=== PATIENT | male | born 1955 | race American Indian/Alaskan Native ===

== ENCOUNTER 2017-05-11 13:07 | Inpatient (IN) | payer MEDICARE ==
[2017-05-11 13:41] LABS: Basophils # (Auto) 0.1 K/mm3 (0.0-0.1); Basophils % (Auto) 0.6 % (0.0-1.8); Eosinophils % (Auto) 0.3 % (0.0-4.3); Hematocrit 33.3 % (35.5-45.6); Hemoglobin 10.7 gm/dl (11.8-15.2); Lymphocytes # (Auto) 0.9 K/mm3 (1.2-5.4); Lymphocytes % (Auto) 10.3 % (13.4-35.0); Mean Corpuscular HGB Conc 32 % (32-34); Mean Corpuscular Hemoglobin 36 pg (28-32); Mean Corpuscular Volume 112 fl (84-94); Monocytes # (Auto) 0.8 K/mm3 (0.0-0.8); Monocytes % (Auto) 8.8 % (0.0-7.3); Platelet Count 238 K/mm3 (140-440); Red Blood Count 2.98 M/mm3 (3.65-5.03); Red Cell Distribution Width 17.3 % (13.2-15.2)
[2017-05-11 14:07] LABS: Albumin 3.1 g/dL (3.9-5); Calcium 8.5 mg/dL (8.4-10.2)
--- NOTE | 2017-05-11 17:10 | Emergency Department Report ---
HPI - General Chief Complaint: Medical Clearance Time Seen by Provider: 05/11/17 16:40 - HPI HPI: 62-year-old -[place] male presents to ED with shortness of breath, leg swelling, weakness. He has a history of end-stage renal disease on dialysis and has missed dialysis last 3 series. No fever, no chest pain, no chills, no nausea or vomiting. Patient lives at home is accompanied by family members in the room. ED Past Medical Hx - Past Medical History Hx Hypertension: Yes Hx Congestive Heart Failure: No Hx Diabetes: Yes Hx Renal Disease: Yes Hx Arthritis: Yes Hx Asthma: No Hx COPD: Yes Additional medical history: gout - Surgical History Hx Appendectomy: Yes Additional Surgical History: fistula left forearm - Social History Smoking Status: Heavy Tobacco Smoker Substance Use Type: None - Medications Home Medications: Home Medications Medication Instructions Recorded Confirmed Last Taken Type ALBUTEROL Inhaler [ProAir HFA 1 puff IH QID PRN #1 inha 12/18/13 04/03/17 Unknown Rx Inhaler] Sucroferric Oxyhydroxide [Velphoro] 500 mg PO TID 04/03/17 04/03/17 Unknown History Vit B Comp No.3/Folic/C/Biotin 1 each PO DAILY 04/03/17 04/03/17 Unknown History [Nephro-[place] Rx Tablet] Budesoni/Formotero 160-4.5(Nf) 1 puff IH BID 30 Days inha 04/10/17 Unknown Rx [Symbicort 160-4.5 (Nf)] Metoprolol [Lopressor TAB] 25 mg PO BID #60 tablet 04/10/17 Unknown Rx ED Review of Systems ROS: Stated complaint: SOB Other details as noted in HPI Constitutional: no symptoms reported Respiratory: cough, orthopnea, shortness of breath, SOB at rest Gastrointestinal: as per HPI Genitourinary: as per HPI Musculoskeletal: arthralgia Physical Exam - Physical Exam Vital Signs: Vital Signs 05/11/17 05/11/17 13:23 14:39 Temperature 97.6 F Pulse Rate 75 76 Respiratory 20 18 Rate Blood Pressure 132/88 Blood Pressure 116/78 [Right] O2 Sat by Pulse 95 95 Oximetry Physical Exam: - Physical Exam Physical Exam: - General Limitations: No Limitations General appearance: alert, in no apparent distress, obese - Head Head exam: Present: atraumatic, normocephalic - Eye Eye exam: Present: normal appearance - ENT ENT exam: Present: mucous membranes moist - Neck Neck exam: Present: normal inspection - Respiratory Respiratory exam: Present: Decreased breath sound bilaterally - Cardiovascular Cardiovascular Exam: Present: normal rhythm, tachycardia. Absent: systolic murmur, diastolic murmur, rubs, gallop - GI/Abdominal GI/Abdominal exam: Present: soft, normal bowel sounds - Extremities Exam Extremities exam: Present: 2+ edema bilaterally - Back Exam Back exam: Present: normal inspection - Neurological Exam Neurological exam: Present: alert, oriented X3 - Psychiatric Psychiatric exam: normal affect and mood - Skin Skin exam: Present: warm, dry, intact, normal color. Absent: rash ED Course Vital Signs 05/11/17 05/11/17 13:23 14:39 Temperature 97.6 F Pulse Rate 75 76 Respiratory 20 18 Rate Blood Pressure 132/88 Blood Pressure 116/78 [Right] O2 Sat by Pulse 95 95 Oximetry ED Medical Decision Making - Lab Data Result diagrams: 05/11/17 13:32 05/11/17 13:32 Critical care attestation.: If time is entered above; I have spent that time in minutes in the direct care of this critically ill patient, excluding procedure time. ED Disposition Clinical Impression: Other fluid overload Disposition: - OP ADMIT IP TO THIS HOSP Is pt being admited?: Yes Does the pt Need Aspirin: No Condition: Stable Referrals: PRIMARY CARE, [Primary Care Provider] - 3-5 Days
[2017-05-11] MEDS ORDERED: NACL 0.9% 100 ML IV PRN (17:17)
[2017-05-11 17:30] LABS: INR 1.21 (0.87-1.13); Partial Thromboplastin Time 27.8 Sec. (24.2-36.6)
--- NOTE | 2017-05-11 17:41 | Consultation ---
History of Present Illness - Reason for Consult Consult date: 05/11/17 end stage renal disease, hyperkalemia Requesting physician: GUERRERO FERNANDEZ - History of Present Illness This is a 61 yo AAM with past medical history of COPD, hypertension, ESRD on HD on MWF, who presents to the ER with complaints of shortness of breath, leg swelling and generalized weakness. pt states that he missed his HD on Sunday due to his son's illness and on Sunday because he felt sick himself. pt denies fever, chills, nausea, vomiting, chest pain, abd pain, diarrhea, dysuria , dizziness, blurry visions. Patient has a left AVF with button hole. CXR showed evidence of interstitial infiltrates and labs showed elevated BUN/Cr at 164/16.8mg/dl with elevated K at 6.3. Renal consult requested for management of ESRD/HD. Past History Past Medical History: anemia, arthritis, COPD, diabetes, dialysis, hypertension Past Surgical History: appendectomy, Other (LUE AVF ) Social history: , lives with family Family history: diabetes, hypertension Medications and Allergies Allergies Allergy/AdvReac Type Severity Reaction Status Date / Time No Known Allergies Allergy Verified 12/18/13 07:27 Home Medications Medication Instructions Recorded Confirmed Last Taken Type ALBUTEROL Inhaler [ProAir HFA 1 puff IH QID PRN #1 inha 12/18/13 04/03/17 Unknown Rx Inhaler] Sucroferric Oxyhydroxide [Velphoro] 500 mg PO TID 04/03/17 04/03/17 Unknown History Vit B Comp No.3/Folic/C/Biotin 1 each PO DAILY 04/03/17 04/03/17 Unknown History [Nephro-[place] Rx Tablet] Budesoni/Formotero 160-4.5(Nf) 1 puff IH BID 30 Days inha 04/10/17 Unknown Rx [Symbicort 160-4.5 (Nf)] Metoprolol [Lopressor TAB] 25 mg PO BID #60 tablet 04/10/17 Unknown Rx Active Meds: Active Medications Sodium Chloride (Nacl 0.9%) 100 mls @ 999 mls/hr IV FRANSISCO PRN PRN Reason: Hypotension Review of Systems All systems: negative Constitutional: weakness, malaise Cardiovascular: edema, shortness of breath, dyspnea on exertion, paroxysmal nocturnal dyspnea Exam - Vital Signs Vital signs: Vital Signs Temp Pulse Resp BP Pulse Ox 97.6 F 75 20 132/88 95 05/11/17 13:23 05/11/17 13:23 05/11/17 13:23 05/11/17 13:23 05/11/17 13:23 - General Appearance General appearance: well-developed, well-nourished, appears stated age EENT: ATNC, PERRL, mucous membranes moist Respiratory: Rales, Decreased Breath Sounds Heart: regular, S1S2 Gastrointestinal: Present: normoactive bowel sounds, obese Integumentary: no rash, other (2+ edema b/l LE ) Neurologic: no focal deficit, alert and oriented x3, strength 5/5, CN 3-12 intact Psychiatric: mood/affect appropriate, cooperative Results - Lab Results 05/11/17 13:32 05/11/17 13:32 Most recent lab results Calcium 8.5 mg/dL (8.4-10.2) 05/11/17 13:32 Assessment and Plan - Patient Problems (1) Pulmonary edema Current Visit: Yes Status: Acute Plan to address problem: will challenge UF 3L as tolerated with HD. another HD tomorrow for both fluid removal and solute clearance (2) Hyperkalemia Current Visit: Yes Status: Acute Plan to address problem: HD today using 2 k bath, cont 2g K renal diet (3) ESRD (end stage renal disease) on dialysis Current Visit: No Status: Chronic Plan to address problem: HD today and tomorrow for both fluid removal and solute clearance. D/w Dr Fernandez (4) Diabetes mellitus type 2, insulin dependent Current Visit: No Status: Chronic Plan to address problem: glucose control as per primary attending (5) HTN (hypertension) Current Visit: No Status: Chronic Plan to address problem: Bp controlled currently. cont current meds
[2017-05-11 18:58] LABS: Chol/HDL Ratio 4.48 %
--- NOTE | 2017-05-11 19:38 | XRay Report ---
FINAL REPORT EXAM: XR CHEST 1V AP HISTORY: sob TECHNIQUE: AP chest portable PRIORS: No prior studies available for comparison FINDINGS: There is mild cardiac enlargement. No focal pulmonary infiltrate identified. No pleural fluid collection seen. There is mild pulmonary vascular congestion. IMPRESSION: Cardiomegaly Mild pulmonary vascular congestion may reflect CHF
[2017-05-11] MEDS ORDERED: NACL 0.9 (PRIMING MACHINE ONLY DIALYSIS) MC ONE (19:53)
--- NOTE | 2017-05-11 20:50 | History and Physical Report ---
History of Present Illness Date of examination: 05/11/17 Date of admission: 05/11/17 17:06 Chief complaint: CC Sob for 2 days History of present illness: History of Present Illness 61 yo AAM with past medical history of COPD, hypertension, ESRD on HD on MWF, very non compliant presents to the ER with complaints of shortness of breath, leg swelling and generalized weakness. pt states that he missed his HD on Sunday due to his son's illness and on Sunday because he felt sick himself. pt denies fever, chills, nausea, vomiting, chest pain, abd pain, diarrhea, dysuria, dizziness, blurry visions. Patient has a left AVF with button hole. CXR showed evidence of interstitial infiltrates and labs showed elevated BUN/Cr at 164/16.8mg/dl with elevated K at 6.3.Orthopnea present. Past History Past Medical History: anemia, arthritis, COPD, diabetes, dialysis, hypertension Past Surgical History: appendectomy, Other (LUE AVF ) Social history: , lives with family Family history: diabetes, hypertension Medications and Allergies Allergies Allergy/AdvReac Type Severity Reaction Status Date / Time No Known Allergies Allergy Verified 12/18/13 07:27 Home Medications Medication Instructions Recorded Confirmed Last Taken Type ALBUTEROL Inhaler [ProAir HFA 1 puff IH QID PRN #1 inha 12/18/13 04/03/17 Unknown Rx Inhaler] Sucroferric Oxyhydroxide [Velphoro] 500 mg PO TID 04/03/17 04/03/17 Unknown History Vit B Comp No.3/Folic/C/Biotin 1 each PO DAILY 04/03/17 04/03/17 Unknown History [Nephro-[place] Rx Tablet] Budesoni/Formotero 160-4.5(Nf) 1 puff IH BID 30 Days inha 04/10/17 Unknown Rx [Symbicort 160-4.5 (Nf)] Metoprolol [Lopressor TAB] 25 mg PO BID #60 tablet 04/10/17 Unknown Rx Past History Past Medical History: anemia, arthritis, COPD, diabetes, dialysis, hypertension Past Surgical History: appendectomy, Other (LUE AVF ) Social history: , lives with family Family history: diabetes, hypertension Medications and Allergies Allergies Allergy/AdvReac Type Severity Reaction Status Date / Time No Known Allergies Allergy Verified 12/18/13 07:27 Home Medications Medication Instructions Recorded Confirmed Last Taken Type Budesoni/Formotero 160-4.5(Nf) 1 puff IH BID 30 Days inha 04/10/17 05/11/17 Unknown Rx [Symbicort 160-4.5 (Nf)] Metoprolol [Lopressor TAB] 25 mg PO BID #60 tablet 04/10/17 05/11/17 Unknown Rx ALBUTEROL Inhaler [ProAir HFA 1 puff IH TID PRN 05/11/17 05/11/17 Unknown History Inhaler] Torsemide [Demadex] 80 mg PO DAILY 05/11/17 05/11/17 Unknown History Active Meds: Active Medications Sodium Chloride (Nacl 0.9%) 100 mls @ 999 mls/hr IV FRANSISCO PRN PRN Reason: Hypotension Review of Systems All systems: negative Constitutional: weight gain Ears, nose, mouth and throat: no sore throat, no swelling in mouth Cardiovascular: orthopnea, shortness of breath, dyspnea on exertion, no chest pain Respiratory: shortness of breath, dyspnea on exertion, no cough, no cough with sputum, no excessive sputum, no hemoptysis Gastrointestinal: nausea, no abdominal pain, no diarrhea, no constipation Genitourinary Male: no dysuria, no hematuria, no flank pain, no discharge Rectal: no pain Musculoskeletal: no neck stiffness, no neck pain, no shooting arm pain, no arm numbness/tingling Integumentary: no rash, no pruritis, no redness, no sores Neurological: no seizures, no syncope Psychiatric: no anxiety, no change in sleep habits Endocrine: no cold intolerance, no heat intolerance, no polyphagia, no excessive thirst Hematologic/Lymphatic: no easy bruising, no easy bleeding Allergic/Immunologic: no urticaria, no allergic rhinitis, no wheezing Exam - Constitutional Vitals: Temp Pulse Resp BP Pulse Ox 97.6 F 78 12 138/89 93 05/11/17 13:23 05/11/17 19:00 05/11/17 19:00 05/11/17 19:00 05/11/17 18:45 General appearance: Present: no acute distress, mild distress, well-nourished - EENT Eyes: Present: PERRL ENT: hearing intact, clear oral mucosa - Neck Neck: Present: supple, normal ROM - Respiratory Respiratory effort: normal Respiratory: bilateral: CTA - Cardiovascular Heart rate: 80 Rhythm: regular Heart Sounds: Present: S1 & S2. Absent: rub, click - Extremities Extremities: no ischemia, pulses intact, pulses symmetrical, No edema Peripheral Pulses: within normal limits - Abdominal General gastrointestinal: Present: soft, non-tender, non-distended, normal bowel sounds Male genitourinary: Present: normal - Rectal Rectal Exam: deferred - Integumentary Integumentary: Present: clear, warm, dry - Musculoskeletal Musculoskeletal: gait normal, strength equal bilaterally - Psychiatric Psychiatric: appropriate mood/affect, intact judgment & insight - Neurologic Neurologic: CNII-XII intact, moves all extremities - Allied Health Allied health notes reviewed: nursing, case management Results - Labs CBC & Chem 7: 05/11/17 13:32 05/11/17 13:32 Labs: Laboratory Last Values WBC 9.1 K/mm3 (4.5-11.0) 05/11/17 13:32 RBC 2.98 M/mm3 (3.65-5.03) L 05/11/17 13:32 Hgb 10.7 gm/dl (11.8-15.2) L 05/11/17 13:32 Hct 33.3 % (35.5-45.6) L 05/11/17 13:32 MCV 112 fl (84-94) H 05/11/17 13:32 MCH 36 pg (28-32) H 05/11/17 13:32 MCHC 32 % (32-34) 05/11/17 13:32 RDW 17.3 % (13.2-15.2) H 05/11/17 13:32 Plt Count 238 K/mm3 (140-440) 05/11/17 13:32 Lymph % (Auto) 10.3 % (13.4-35.0) L 05/11/17 13:32 Major % (Auto) 8.8 % (0.0-7.3) H 05/11/17 13:32 Eos % (Auto) 0.3 % (0.0-4.3) 05/11/17 13:32 Baso % (Auto) 0.6 % (0.0-1.8) 05/11/17 13:32 Lymph # 0.9 K/mm3 (1.2-5.4) L 05/11/17 13:32 Major # 0.8 K/mm3 (0.0-0.8) 05/11/17 13:32 Eos # 0.0 K/mm3 (0.0-0.4) 05/11/17 13:32 Baso # 0.1 K/mm3 (0.0-0.1) 05/11/17 13:32 Seg Neutrophils % 80.0 % (40.0-70.0) H 05/11/17 13:32 Seg Neutrophils # 7.3 K/mm3 (1.8-7.7) 05/11/17 13:32 PT 16.0 Sec. (12.2-14.9) H 05/11/17 16:54 INR 1.21 (0.87-1.13) H 05/11/17 16:54 APTT 27.8 Sec. (24.2-36.6) 05/11/17 16:54 Sodium 141 mmol/L (137-145) 05/11/17 13:32 Potassium 6.3 mmol/L (3.6-5.0) H* 05/11/17 13:32 Chloride 99.7 mmol/L (98-107) 05/11/17 13:32 Carbon Dioxide 17 mmol/L (22-30) L 05/11/17 13:32 Anion Gap 31 mmol/L 05/11/17 13:32 BUN 164 mg/dL (9-20) H 05/11/17 13:32 Creatinine 16.8 mg/dL (0.8-1.5) H 05/11/17 13:32 Estimated GFR 4 ml/min 05/11/17 13:32 BUN/Creatinine Ratio 10 % 05/11/17 13:32 Glucose 103 mg/dL (75-100) H 05/11/17 13:32 Calcium 8.5 mg/dL (8.4-10.2) 05/11/17 13:32 Total Bilirubin 0.50 mg/dL (0.1-1.2) 05/11/17 13:32 AST 47 units/L (5-40) H 05/11/17 13:32 ALT 142 units/L (7-56) H 05/11/17 13:32 Alkaline Phosphatase 167 units/L (35-129) H 05/11/17 13:32 Troponin T 0.130 ng/mL (0.00-0.029) H* 05/11/17 16:54 NT-Pro-B Natriuret Pep > 69926 pg/mL (0-900) H 05/11/17 16:54 Total Protein 5.8 g/dL (6.3-8.2) L 05/11/17 13:32 Albumin 3.1 g/dL (3.9-5) L 05/11/17 13:32 Albumin/Globulin Ratio 1.1 % 05/11/17 13:32 Triglycerides 92 mg/dL (2-149) 05/11/17 16:54 Cholesterol 112 mg/dL (50-199) 05/11/17 16:54 LDL Cholesterol Direct 63 mg/dL (50-130) 05/11/17 16:54 HDL Cholesterol 25 mg/dL (40-59) L 05/11/17 16:54 Cholesterol/HDL Ratio 4.48 % 05/11/17 16:54 Short CBC 05/11/17 Range/Units 13:32 WBC 9.1 (4.5-11.0) K/mm3 Hgb 10.7 L (11.8-15.2) gm/dl Hct 33.3 L (35.5-45.6) % Plt Count 238 (140-440) K/mm3 BMP 05/11/17 13:32 Sodium 141 Potassium 6.3 H* Chloride 99.7 Carbon Dioxide 17 L BUN 164 H Creatinine 16.8 H Glucose 103 H Calcium 8.5 Cardiac Enzymes 05/11/17 Range/Units 16:54 Troponin T 0.130 H* (0.00-0.029) ng/mL Liver Function 05/11/17 Range/Units 13:32 Total Bilirubin 0.50 (0.1-1.2) mg/dL AST 47 H (5-40) units/L ALT 142 H (7-56) units/L Alkaline Phosphatase 167 H (35-129) units/L Albumin 3.1 L (3.9-5) g/dL Assessment and Plan Advance Directives: Yes (Full code) VTE prophylaxis?: Chemical Plan of care discussed with patient/family: Yes - Patient Problems (1) Pulmonary edema Current Visit: Yes Status: Acute Qualifiers: Chronicity: acute Qualified Code(s): J81.0 - Acute pulmonary edema Plan to address problem: Sec to Missed HD Emergent HD ordered by Dr Hnacock for ultrafiltration (2) Hyperkalemia Current Visit: Yes Status: Acute Plan to address problem: On Torsemide Calcium gluconate IV Emergent HD Recheck K level (3) Fluid overload Current Visit: No Status: Chronic Plan to address problem: Sec to missed HD. (4) ESRD (end stage renal disease) on dialysis Current Visit: No Status: Chronic Plan to address problem: Cont HD .Counselled about noncompliance (5) HTN (hypertension) Current Visit: No Status: Chronic Qualifiers: Hypertension type: essential hypertension Qualified Code(s): I10 - Essential (primary) hypertension Plan to address problem: Cont antihypertensives (6) COPD (chronic obstructive pulmonary disease) Current Visit: Yes Status: Chronic Qualifiers: COPD type: unspecified COPD Qualified Code(s): J44.9 - Chronic obstructive pulmonary disease, unspecified Plan to address problem: Cont Bronchodilators (7) DVT prophylaxis Current Visit: No Status: Acute Plan to address problem: On Heparin
[2017-05-11] MEDS ORDERED: PROAIR IH PRN (20:51)
[2017-05-11] MEDS ORDERED: SODIUM CHLORIDE FLUSH SYRINGE 10 ML IV PRN (20:54)
[2017-05-11] MEDS ORDERED: AMBIEN PO PRN (20:54)
[2017-05-11] MEDS ORDERED: ZOFRAN IV PRN (20:54)
[2017-05-11] MEDS ORDERED: MORPHINE IV PRN (20:54)
[2017-05-11] MEDS ORDERED: TYLENOL PO PRN (20:54)
[2017-05-11] MEDS ORDERED: TORSEMIDE PO SCH (21:00)
[2017-05-11] MEDS ORDERED: PROVENTIL IH PRN (21:07)
[2017-05-11] MEDS ORDERED: NON-FORMULARY (Budesoni/Formotero 160-4.5(Nf) 1 PUFF) IH SCH (22:00)
[2017-05-12] MEDS: LOPRESSOR PO SCH ×3 (00:29→22:28)
[2017-05-12] MEDS: SODIUM CHLORIDE FLUSH SYRINGE 10 ML IV SCH ×2 (00:30→22:28)
[2017-05-12] MEDS ORDERED: CALCIUM GLUCONATE 2,000 MG in NACL 0.9% 100 ML IV ONE (06:11)
[2017-05-12 06:36] LABS: Basophils % (Auto) 0.3 % (0.0-1.8); Eosinophils % (Auto) 0.5 % (0.0-4.3); Hematocrit 28.3 % (35.5-45.6); Hemoglobin 9.6 gm/dl (11.8-15.2); Lymphocytes % (Auto) 11.8 % (13.4-35.0); Mean Corpuscular HGB Conc 34 % (32-34); Mean Corpuscular Hemoglobin 37 pg (28-32); Mean Corpuscular Volume 108 fl (84-94); Monocytes # (Auto) 0.8 K/mm3 (0.0-0.8); Platelet Count 187 K/mm3 (140-440); Red Blood Count 2.62 M/mm3 (3.65-5.03); Red Cell Distribution Width 16.9 % (13.2-15.2)
[2017-05-12 06:51] LABS: Albumin 2.9 g/dL (3.9-5); Calcium 8.2 mg/dL (8.4-10.2)
[2017-05-12] MEDS: BROVANA NEBU IH SCH ×2 (07:31→20:49)
[2017-05-12] MEDS: PULMICORT IH SCH ×2 (07:31→20:49)
[2017-05-12] MEDS: HEPARIN SUB-Q SCH ×2 (09:31→22:27)
[2017-05-12] MEDS ORDERED: DEMADEX PO SCH ×2 (10:00)
--- NOTE | 2017-05-12 10:06 | Progress Note ---
Assessment and Plan - Patient Problems (1) Hypertensive chronic kidney disease with stage 5 chronic kidney disease or end stage renal disease Current Visit: Yes Status: Acute Plan to address problem: Follow blood pressure following fluid removal on dialysis (2) Hyperkalemia Current Visit: Yes Status: Acute Plan to address problem: Potassium improved postdialysis. (3) Other fluid overload Current Visit: Yes Status: Acute Plan to address problem: Hemodialysis again today. Attempt 3-4 L fluid removal. (4) Diabetes mellitus type 2, insulin dependent Current Visit: No Status: Chronic Plan to address problem: Blood sugar management by primary attending (5) ESRD (end stage renal disease) on dialysis Current Visit: No Status: Chronic Plan to address problem: Hemodialysis again today. Reinforce importance of adherence to dialysis treatment regimen Subjective Date of service: 05/12/17 Principal diagnosis: end-stage renal disease Interval history: Patient seen lying in bed. He has no complaints. He says he goes to dialysis at [facility] under the care of Dr. Hayward's group. Objective - Exam Narrative Exam: Tall middle-aged heavily built -[place] male lying in bed in no acute distress HEENT: NCAT, pink oral mucous membrane Neck: Supple, no venous distention CVS: S1S2 RRR with no murmur, rub or gallop Chest: Faint rhonchi Abdomen: Protuberant, soft, nontender, no organomegaly, bowel sounds are present Extremities: 2+ edema Neuro: Awake, alert no focal deficits - Vital Signs Vital signs: Vital Signs - 12hr 05/11/17 05/11/17 05/11/17 22:15 22:30 22:45 Temperature Pulse Rate 73 70 74 Respiratory Rate Blood Pressure 125/78 139/74 139/83 Blood Pressure [Right] O2 Sat by Pulse Oximetry 05/11/17 05/11/17 05/12/17 23:00 23:20 00:19 Temperature 98.0 F 98.6 F Pulse Rate 74 76 85 Respiratory 18 20 Rate Blood Pressure 123/87 138/80 127/82 Blood Pressure [Right] O2 Sat by Pulse 97 Oximetry 05/12/17 05/12/17 05/12/17 00:29 02:55 04:24 Temperature 98.2 F Pulse Rate 84 83 83 Respiratory 20 Rate Blood Pressure 127/82 121/81 Blood Pressure [Right] O2 Sat by Pulse 93 Oximetry 05/12/17 09:16 Temperature 98.2 F Pulse Rate 85 Respiratory 22 Rate Blood Pressure Blood Pressure 133/75 [Right] O2 Sat by Pulse 92 Oximetry - Lab 05/12/17 05:43 05/12/17 05:43 Most recent lab results Calcium 8.2 mg/dL (8.4-10.2) L 05/12/17 05:43
--- NOTE | 2017-05-12 11:32 | Progress Note ---
Assessment and Plan Assessment and plan: 61 yo AAM with past medical history of COPD, hypertension, ESRD on HD on MWF, very non compliant presents to the ER with complaints of shortness of breath, leg swelling and generalized weakness. pt states that he missed his HD on Sunday due to his son's illness and on Sunday because he felt sick himself. pt denies fever, chills, nausea, vomiting, chest pain, abd pain, diarrhea, dysuria, dizziness, blurry visions. Patient has a left AVF with button hole. CXR showed evidence of interstitial infiltrates and labs showed elevated BUN/Cr at 164/16.8mg/dl with elevated K at 6.3.Orthopnea present. Acute Pulmonary Edema Acute Respiratory failure secondary to pulmonary edema from missed dialysis Hyperkalemia-Resolving ESRD ?compliance with HD Obesity COPD HTN secondary to chronic kidney disease/ESRD-Controlled Fluid overload Diabetes Mellitus type 2 with Hyperglycemia PLAN: Patient on admission had emergent dialysis and is planned per nephrology for additional dialysis today. Potassium has improved but he is still with some shortness of breath. Extensive counselling greater than 15 mins provided Continue Nebs and accucheck with Insulin for blood sugar control DVT/GI prophy Plan discussed with the patient and [employer]roleum [employer] History Interval history: Admitted with shortness of breath, following missed dialysis. Patient seen and examined this am, in no acute distress. resting, still states some noted shortness of breath and orthopnea, not yet at baseline. He denies any chest pain, nausea, vomiting or diarrhea. Hospitalist Physical - Constitutional Vitals: Temp Pulse Resp BP Pulse Ox 98.2 F 82 22 133/75 92 05/12/17 09:16 05/12/17 10:00 05/12/17 09:16 05/12/17 09:16 05/12/17 09:16 General appearance: Present: mild distress, well-nourished, other (sitting up, unable to lay flat) - EENT Eyes: Present: PERRL, EOM intact - Neck Neck: Present: supple, normal ROM - Respiratory Respiratory effort: normal Respiratory: bilateral: rhonchi - Cardiovascular Rhythm: regular Heart Sounds: Present: S1 & S2. Absent: systolic murmur, diastolic murmur - Extremities Extremities: no ischemia, pulses intact, pulses symmetrical Extremity abnormal: edema (+1 bilateral lower ext) - Abdominal General gastrointestinal: soft, non-tender, distended, normal bowel sounds - Integumentary Integumentary: Present: warm, dry - Psychiatric Psychiatric: appropriate mood/affect, intact judgment & insight, cooperative - Neurologic Neurologic: CNII-XII intact - Allied Health Allied health notes reviewed: nursing Results - Labs CBC & Chem 7: 05/12/17 05:43 05/12/17 05:43 Labs: Laboratory Last Values WBC 8.5 K/mm3 (4.5-11.0) 05/12/17 05:43 RBC 2.62 M/mm3 (3.65-5.03) L 05/12/17 05:43 Hgb 9.6 gm/dl (11.8-15.2) L 05/12/17 05:43 Hct 28.3 % (35.5-45.6) L 05/12/17 05:43 MCV 108 fl (84-94) H 05/12/17 05:43 MCH 37 pg (28-32) H 05/12/17 05:43 MCHC 34 % (32-34) 05/12/17 05:43 RDW 16.9 % (13.2-15.2) H 05/12/17 05:43 Plt Count 187 K/mm3 (140-440) 05/12/17 05:43 Lymph % (Auto) 11.8 % (13.4-35.0) L 05/12/17 05:43 Sawyer % (Auto) 9.0 % (0.0-7.3) H 05/12/17 05:43 Eos % (Auto) 0.5 % (0.0-4.3) 05/12/17 05:43 Baso % (Auto) 0.3 % (0.0-1.8) 05/12/17 05:43 Lymph # 1.0 K/mm3 (1.2-5.4) L 05/12/17 05:43 Sawyer # 0.8 K/mm3 (0.0-0.8) 05/12/17 05:43 Eos # 0.0 K/mm3 (0.0-0.4) 05/12/17 05:43 Baso # 0.0 K/mm3 (0.0-0.1) 05/12/17 05:43 Seg Neutrophils % 78.4 % (40.0-70.0) H 05/12/17 05:43 Seg Neutrophils # 6.7 K/mm3 (1.8-7.7) 05/12/17 05:43 PT 16.0 Sec. (12.2-14.9) H 05/11/17 16:54 INR 1.21 (0.87-1.13) H 05/11/17 16:54 APTT 27.8 Sec. (24.2-36.6) 05/11/17 16:54 Sodium 143 mmol/L (137-145) 05/12/17 05:43 Potassium 4.5 mmol/L (3.6-5.0) D 05/12/17 05:43 Chloride 99.4 mmol/L (98-107) 05/12/17 05:43 Carbon Dioxide 24 mmol/L (22-30) D 05/12/17 05:43 Anion Gap 24 mmol/L 05/12/17 05:43 BUN 91 mg/dL (9-20) H 05/12/17 05:43 Creatinine 10.8 mg/dL (0.8-1.5) H 05/12/17 05:43 Estimated GFR 6 ml/min 05/12/17 05:43 BUN/Creatinine Ratio 8 % 05/12/17 05:43 Glucose 155 mg/dL (75-100) H 05/12/17 05:43 Hemoglobin A1c 5.3 % (4-6) 05/11/17 13:32 Calcium 8.2 mg/dL (8.4-10.2) L 05/12/17 05:43 Total Bilirubin 0.60 mg/dL (0.1-1.2) 05/12/17 05:43 AST 35 units/L (5-40) 05/12/17 05:43 ALT 111 units/L (7-56) H 05/12/17 05:43 Alkaline Phosphatase 153 units/L (35-129) H 05/12/17 05:43 Troponin T 0.130 ng/mL (0.00-0.029) H* 05/11/17 16:54 NT-Pro-B Natriuret Pep > 23513 pg/mL (0-900) H 05/11/17 16:54 Total Protein 5.2 g/dL (6.3-8.2) L 05/12/17 05:43 Albumin 2.9 g/dL (3.9-5) L 05/12/17 05:43 Albumin/Globulin Ratio 1.3 % 05/12/17 05:43 Triglycerides 92 mg/dL (2-149) 05/11/17 16:54 Cholesterol 112 mg/dL (50-199) 05/11/17 16:54 LDL Cholesterol Direct 63 mg/dL (50-130) 05/11/17 16:54 HDL Cholesterol 25 mg/dL (40-59) L 05/11/17 16:54 Cholesterol/HDL Ratio 4.48 % 05/11/17 16:54 - Imaging and Cardiology Chest x-ray: image reviewed (mild pulmonary congestion)
[2017-05-13] MEDS ORDERED: NACL 0.9 (PRIMING MACHINE ONLY DIALYSIS) MC ONE (00:45)
[2017-05-13 06:18] LABS: Hematocrit 30.4 % (35.5-45.6); Hemoglobin 10.4 gm/dl (11.8-15.2); Mean Corpuscular HGB Conc 34 % (32-34); Mean Corpuscular Hemoglobin 37 pg (28-32); Mean Corpuscular Volume 107 fl (84-94); Platelet Count 177 K/mm3 (140-440); Red Blood Count 2.84 M/mm3 (3.65-5.03); Red Cell Distribution Width 17.1 % (13.2-15.2)
[2017-05-13 06:41] LABS: Calcium 8.3 mg/dL (8.4-10.2)
[2017-05-13] MEDS: BROVANA NEBU IH SCH (08:00)
[2017-05-13] MEDS: PULMICORT IH SCH (08:00)
[2017-05-13] MEDS: HEPARIN SUB-Q SCH (09:52)
--- NOTE | 2017-05-13 14:36 | Progress Note ---
Assessment and Plan Assessment and plan: Patient is 62-year-old man history is a ESRD on MWF hemodialysis, hypertension and COPD who presented to ED with shortness of breath. He missed his hemodialysis session on Sunday and Sunday for various of reasons. pCXR reported as Cardiomegaly, pulmonary vascular congestion may reflect CHF Acute Pulmonary Edema due to noncompliance with hemodialysis: counseling done, Acute Respiratory failure secondary to pulmonary edema from missed dialysis: HD , mechanical test technician is following Hyperkalemia-Resolving ESRD ?compliance with HD Obesity COPD HTN secondary to chronic kidney disease/ESRD-Controlled Fluid overload Diabetes Mellitus type 2 with Hyperglycemia Disposition: once nephrology clears. History Interval history: Patient was seen and examined. Follow-up on current diagnosis. Overnight uneventful. Patient denies any chest pain, shortness breath, nausea/vomiting or severe headaches. Imaging, nursing note, chart, labs and old chart reviewed. Discussed with patient. Hospitalist Physical - Physical exam Narrative exam: GEN: WDWN, NAD, AWAKE, ALERT, ORIENTATED 3 HEENT: NCAT, EOMI, PERRL, OP Clear NECK: supple, no adenopathy, no thyromegaly, no JVD CVS/HEART: RRR, NORMAL S1S2, pulses present bilaterally CHEST/LUNGS: Bibasilar crackles, diminished breath sounds bilaterally Symmetrical chest expansion, good air entry bilaterally GI/Abdomen: soft, NTND, good bowel sounds, no guarding or rebound /Bladder: no suprapubic tenderness, no CVA or paraspinal tenderness EXT/Skin: 2+ pitting edema legs bilaterally MSK: FROM x 4 Neuro: CN 2-12 grossly intact, no new focal deficits Psych: calm - Constitutional Vitals: Temp Pulse Resp BP Pulse Ox 98.2 F 80 20 114/81 98 05/13/17 07:56 05/13/17 11:53 05/13/17 08:00 05/13/17 07:56 05/13/17 10:00 General appearance: Present: well-nourished Results - Labs CBC & Chem 7: 05/13/17 05:52 05/13/17 05:52 Labs: Laboratory Last Values WBC 9.9 K/mm3 (4.5-11.0) 05/13/17 05:52 RBC 2.84 M/mm3 (3.65-5.03) L 05/13/17 05:52 Hgb 10.4 gm/dl (11.8-15.2) L 05/13/17 05:52 Hct 30.4 % (35.5-45.6) L 05/13/17 05:52 MCV 107 fl (84-94) H 05/13/17 05:52 MCH 37 pg (28-32) H 05/13/17 05:52 MCHC 34 % (32-34) 05/13/17 05:52 RDW 17.1 % (13.2-15.2) H 05/13/17 05:52 Plt Count 177 K/mm3 (140-440) 05/13/17 05:52 Lymph % (Auto) 11.8 % (13.4-35.0) L 05/12/17 05:43 Cass % (Auto) 9.0 % (0.0-7.3) H 05/12/17 05:43 Eos % (Auto) 0.5 % (0.0-4.3) 05/12/17 05:43 Baso % (Auto) 0.3 % (0.0-1.8) 05/12/17 05:43 Lymph # 1.0 K/mm3 (1.2-5.4) L 05/12/17 05:43 Cass # 0.8 K/mm3 (0.0-0.8) 05/12/17 05:43 Eos # 0.0 K/mm3 (0.0-0.4) 05/12/17 05:43 Baso # 0.0 K/mm3 (0.0-0.1) 05/12/17 05:43 Seg Neutrophils % 78.4 % (40.0-70.0) H 05/12/17 05:43 Seg Neutrophils # 6.7 K/mm3 (1.8-7.7) 05/12/17 05:43 PT 16.0 Sec. (12.2-14.9) H 05/11/17 16:54 INR 1.21 (0.87-1.13) H 05/11/17 16:54 APTT 27.8 Sec. (24.2-36.6) 05/11/17 16:54 Sodium 137 mmol/L (137-145) 05/13/17 05:52 Potassium 4.4 mmol/L (3.6-5.0) 05/13/17 05:52 Chloride 94.4 mmol/L (98-107) L 05/13/17 05:52 Carbon Dioxide 26 mmol/L (22-30) 05/13/17 05:52 Anion Gap 21 mmol/L 05/13/17 05:52 BUN 61 mg/dL (9-20) H 05/13/17 05:52 Creatinine 8.6 mg/dL (0.8-1.5) H 05/13/17 05:52 Estimated GFR 8 ml/min 05/13/17 05:52 BUN/Creatinine Ratio 7 % 05/13/17 05:52 Glucose 103 mg/dL (75-100) H 05/13/17 05:52 POC Glucose 109 (70-105) H 05/13/17 06:29 Hemoglobin A1c 5.3 % (4-6) 05/11/17 13:32 Calcium 8.3 mg/dL (8.4-10.2) L 05/13/17 05:52 Total Bilirubin 0.60 mg/dL (0.1-1.2) 05/12/17 05:43 AST 35 units/L (5-40) 05/12/17 05:43 ALT 111 units/L (7-56) H 05/12/17 05:43 Alkaline Phosphatase 153 units/L (35-129) H 05/12/17 05:43 Troponin T 0.130 ng/mL (0.00-0.029) H* 05/11/17 16:54 NT-Pro-B Natriuret Pep > 96893 pg/mL (0-900) H 05/11/17 16:54 Total Protein 5.2 g/dL (6.3-8.2) L 05/12/17 05:43 Albumin 2.9 g/dL (3.9-5) L 05/12/17 05:43 Albumin/Globulin Ratio 1.3 % 05/12/17 05:43 Triglycerides 92 mg/dL (2-149) 05/11/17 16:54 Cholesterol 112 mg/dL (50-199) 05/11/17 16:54 LDL Cholesterol Direct 63 mg/dL (50-130) 05/11/17 16:54 HDL Cholesterol 25 mg/dL (40-59) L 05/11/17 16:54 Cholesterol/HDL Ratio 4.48 % 05/11/17 16:54
[2017-05-13 15:24] VITALS: BP 120/77
--- NOTE | 2017-05-13 15:56 | Progress Note ---
Assessment and Plan - Patient Problems (1) Hypertensive chronic kidney disease with stage 5 chronic kidney disease or end stage renal disease Current Visit: Yes Status: Acute Plan to address problem: Blood pressure has improved with fluid removal on dialysis. Follow blood pressure on current medications. Okay to discharge home from my standpoint and follow up in the outpatient dialysis clinic. (2) Hyperkalemia Current Visit: Yes Status: Acute Plan to address problem: Potassium improved postdialysis. (3) Other fluid overload Current Visit: Yes Status: Acute Plan to address problem: Improved with hemodialysis. Reinforced importance of adherence to sodium/fluid restriction. We'll need an extra dialysis treatment on Sunday if by Sunday he still has swelling in his legs. (4) Diabetes mellitus type 2, insulin dependent Current Visit: No Status: Chronic Plan to address problem: Blood sugar management by primary attending (5) ESRD (end stage renal disease) on dialysis Current Visit: No Status: Chronic Plan to address problem: Resume usual Hemodialysis schedule this week. Reinforce importance of adherence to dialysis treatment regimen Subjective Date of service: 05/13/17 Principal diagnosis: end-stage renal disease Interval history: Patient seen lying in bed. He has no complaints. He wants to go home Objective - Exam Narrative Exam: Tall middle-aged heavily built -Citizen Of [place] male lying in bed in no acute distress HEENT: NCAT, pink oral mucous membrane Neck: Supple, no venous distention CVS: S1S2 RRR with no murmur, rub or gallop Chest: Faint rhonchi Abdomen: Protuberant, soft, nontender, no organomegaly, bowel sounds are present Extremities: 2+ edema Neuro: Awake, alert no focal deficits - Vital Signs Vital signs: Vital Signs - 12hr 05/13/17 05/13/17 05/13/17 03:59 04:00 07:56 Temperature 98.3 F 98.2 F Pulse Rate 85 90 80 Pulse Rate [ Anterior Bilateral Throughout] Respiratory 20 20 Rate Respiratory Rate [Anterior Bilateral Throughout] Blood Pressure 122/82 114/81 O2 Sat by Pulse 95 96 Oximetry 05/13/17 05/13/17 05/13/17 08:00 10:00 11:53 Temperature Pulse Rate 80 Pulse Rate [ 83 Anterior Bilateral Throughout] Respiratory Rate Respiratory 20 Rate [Anterior Bilateral Throughout] Blood Pressure O2 Sat by Pulse 98 Oximetry 05/13/17 11:57 Temperature 98.6 F Pulse Rate 84 Pulse Rate [ Anterior Bilateral Throughout] Respiratory 20 Rate Respiratory Rate [Anterior Bilateral Throughout] Blood Pressure 120/77 O2 Sat by Pulse 97 Oximetry - Lab 05/13/17 05:52 05/13/17 05:52 Most recent lab results Calcium 8.3 mg/dL (8.4-10.2) L 05/13/17 05:52
--- NOTE | 2017-05-13 17:32 | Discharge Summary ---
Providers - Providers Date of Admission: 05/11/17 17:06 Date of discharge: 05/13/17 Attending physician: FERNANDO MCINTOSH 05/11/17 17:05 Consult to Physician [CONS] Stat Consulting Provider: RAHAT BAILEY Reason For Exam: fluid overload Place consult to:: [facility] Notified:: y Primary care physician: MEDICAL OFFICE REPRESENTATIVE Hospitalization Condition: Stable Hospital course: Patient is 62-year-old man history is a ESRD on MWF hemodialysis, hypertension and COPD who presented to ED with shortness of breath. He missed his hemodialysis session on Sunday and Sunday for various of reasons. pCXR reported as Cardiomegaly, pulmonary vascular congestion may reflect CHF Acute Pulmonary Edema due to noncompliance with hemodialysis: counseling done, Acute Respiratory failure secondary to pulmonary edema from missed dialysis: HD , manager financial reporting is following Hyperkalemia-Resolving ESRD ?compliance with HD Obesity COPD HTN secondary to chronic kidney disease/ESRD-Controlled Fluid overload due to ESRD Diabetes Mellitus type 2 with Hyperglycemia Disposition: once nephrology clears==>they have just cleared for discharge Disposition: DC- TO HOME OR SELFCARE Time spent for discharge: 34 min Core Measure Documentation - Palliative Care Palliative Care/ Comfort Measures: Not Applicable - Core Measures Any of the following diagnoses?: none - VTE Discharge Requirements Deep Vein Thrombosis/Pulmonary Embolism Present on Admission: No Has pt received <5 days of overlap therapy or INR<2.0: No Anticoagulant overlap therapy prescribed at discharge: No Contraindication No Overlap Therapy order at DC: Not Indicated Exam - Physical Exam Narrative exam: GEN: WDWN, NAD, AWAKE, ALERT, ORIENTATED 3 HEENT: NCAT, EOMI, PERRL, OP Clear NECK: supple, no adenopathy, no thyromegaly, no JVD CVS/HEART: RRR, NORMAL S1S2, pulses present bilaterally CHEST/LUNGS: Bibasilar crackles, diminished breath sounds bilaterally Symmetrical chest expansion, good air entry bilaterally GI/Abdomen: soft, NTND, good bowel sounds, no guarding or rebound /Bladder: no suprapubic tenderness, no CVA or paraspinal tenderness EXT/Skin: 2+ pitting edema legs bilaterally MSK: FROM x 4 Neuro: CN 2-12 grossly intact, no new focal deficits Psych: calm - Constitutional Vitals: Temp Pulse Resp BP Pulse Ox 98.6 F 84 20 120/77 97 03/11/18 11:57 05/13/17 11:57 05/13/17 11:57 05/13/17 11:57 05/13/17 11:57 Plan Activity: other (no strenous activities) Diet: renal Additional Instructions: please keep hemodialysis appointments Follow up with: TORIBIO MAHER MD [Primary Care Provider] - 3-5 Days RAHAT BAILEY MD [Staff Physician] - 7 Days
== END 2017-05-13 18:36 | disposition home or self-care (01) | DRG 189 ==
LOC: ED 13:07 → 4A 17:06
PROVIDERS: ADMIT Internal Medicine; ATTEND Internal Medicine
PROC: 5A1D70Z Performance of Urinary Filtration, Intermittent, Less than 6 Hours Per Day (ICD-10-PCS; principal; 2017-05-11)
PROC: 5A1D70Z Performance of Urinary Filtration, Intermittent, Less than 6 Hours Per Day (ICD-10-PCS; 2017-05-12)
DX: J96.00 Acute respiratory failure, unspecified whether with hypoxia or hypercapnia (principal); J81.0 Acute pulmonary edema; N18.6 End stage renal disease; I12.0 Hypertensive chronic kidney disease with stage 5 chronic kidney disease or end stage renal disease; E87.70 Fluid overload, unspecified; E11.22 Type 2 diabetes mellitus with diabetic chronic kidney disease; M19.90 Unspecified osteoarthritis, unspecified site; J44.9 Chronic obstructive pulmonary disease, unspecified; E66.9 Obesity, unspecified; E87.5 Hyperkalemia; E11.65 Type 2 diabetes mellitus with hyperglycemia; M10.9 Gout, unspecified; Z79.51 Long term (current) use of inhaled steroids; Z99.2 Dependence on renal dialysis; Z82.49 Family history of ischemic heart disease and other diseases of the circulatory system; Z83.3 Family history of diabetes mellitus; Z90.49 Acquired absence of other specified parts of digestive tract; Z91.15 Patient's noncompliance with renal dialysis; Z68.37 Body mass index [BMI] 37.0-37.9, adult; Z71.89 Other specified counseling
CPT/HCPCS: 36415; 71045; 80048; 80053; 80061; 82962; 83036; 83880; 84484; 85025; 85027; 85610; 85730; 94640; 99285; J0610; J1644; J7030

== ENCOUNTER 2018-05-05 13:47 | Inpatient (IN) | payer MEDICARE ==
[2018-05-05] MEDS ORDERED: SOLU-Medrol IV ONE (14:11)
[2018-05-05] MEDS ORDERED: PROVENTIL IH ONE (14:11)
[2018-05-05] MEDS ORDERED: ATROVENT IH ONE (14:11)
[2018-05-05] MEDS ORDERED: MAGNESIUM SULFATE 2GM/50ML 2 GM/50 ML BAG IV ONE (14:12)
[2018-05-05] MEDS ORDERED: LEVAQUIN 500MG/100ML 500 MG/100 ML BAG IV ONE (14:48)
--- NOTE | 2018-05-05 14:50 | Emergency Department Report ---
ED General Adult HPI - General Chief complaint: Dyspnea/Respdistress Stated complaint: LEONEL/COLD Time Seen by Provider: 05/05/18 14:36 Source: patient, RN notes reviewed, old records reviewed Mode of arrival: Wheelchair Limitations: No Limitations - History of Present Illness Initial comments: This is a 62-year-old gentleman. The patient's has a past medical history of end-stage renal disease, on dialysis, Sunday, Sunday, Sunday. The patient's private account support rep arranged for an additional dialysis session yesterday. Primary care Dr.: Khanh Cardenas Nephrology: Dr Hayward The patient also has a history of COPD, and is reportedly on home oxygen 2 L. 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 He presents to the emergency room today with complaint of cough, shortness of breath, chest tightness, wheezing. Symptoms present 1 week. They're constant. They worse with physical exertion. They decrease with rest. He reports that he feels "like that time I had the flu, and pneumonia." He endorses compliance with his medications, subjectively does not feel volume overloaded, and he denies DVT, pulmonary embolus risk factors. -: Gradual Location: chest Radiation: non-radiation Severity scale (0 -10): 8 Quality: aching Consistency: constant Improves with: rest Worsens with: movement Associated Symptoms: chest pain, cough, loss of appetite, malaise, shortness of breath, weakness. denies: confusion, diaphoresis, fever/chills, headaches, nausea/vomiting, rash, seizure, syncope - Related Data Home Medications Medication Instructions Recorded Confirmed Last Taken ALBUTEROL Inhaler (OR & NICU) 1 puff IH TID PRN 05/11/17 05/11/17 Unknown [ProAir HFA Inhaler] Torsemide [Demadex] 80 mg PO DAILY 05/11/17 05/11/17 Unknown Previous Rx's Medication Instructions Recorded Last Taken Type Budesoni/Formotero 160-4.5(Nf) 1 puff IH BID 30 Days inha 04/10/17 Unknown Rx [Symbicort 160-4.5 (Nf)] Metoprolol [Lopressor TAB] 25 mg PO BID #60 tablet 04/10/17 Unknown Rx Allergies Allergy/AdvReac Type Severity Reaction Status Date / Time No Known Allergies Allergy Verified 12/18/13 07:27 ED Review of Systems ROS: Stated complaint: LEONEL/COLD Other details as noted in HPI Constitutional: malaise, weakness. denies: fever Eyes: denies: eye discharge ENT: congestion Respiratory: cough, shortness of breath, wheezing Cardiovascular: chest pain (chest tightness) Gastrointestinal: denies: abdominal pain, nausea, vomiting Genitourinary: denies: dysuria Musculoskeletal: arthralgia, myalgia. denies: back pain Skin: denies: lesions Neurological: weakness ED Past Medical Hx - Past Medical History Hx Hypertension: Yes Hx Congestive Heart Failure: Yes Hx Diabetes: Yes Hx Renal Disease: Yes (HD) Hx Arthritis: Yes Hx Asthma: No Hx COPD: Yes Additional medical history: gout - Surgical History Hx Appendectomy: Yes Additional Surgical History: fistula left forearm - Social History Smoking Status: Former Smoker Substance Use Type: Prescribed - Medications Home Medications: Home Medications Medication Instructions Recorded Confirmed Last Taken Type Budesoni/Formotero 160-4.5(Nf) 1 puff IH BID 30 Days inha 04/10/17 05/11/17 Unknown Rx [Symbicort 160-4.5 (Nf)] Metoprolol [Lopressor TAB] 25 mg PO BID #60 tablet 04/10/17 05/11/17 Unknown Rx ALBUTEROL Inhaler (OR & NICU) 1 puff IH TID PRN 05/11/17 05/11/17 Unknown History [ProAir HFA Inhaler] Torsemide [Demadex] 80 mg PO DAILY 05/11/17 05/11/17 Unknown History ED Physical Exam - General Limitations: No Limitations General appearance: alert, anxious, in distress, obese - Head Head exam: Present: atraumatic, normocephalic - Eye Eye exam: Present: normal appearance, EOMI. Absent: nystagmus - ENT ENT exam: Present: normal exam, normal orophraynx, mucous membranes moist, normal external ear exam - Neck Neck exam: Present: normal inspection, full ROM. Absent: tenderness, meningismus - Respiratory Respiratory exam: Present: respiratory distress, wheezes, rhonchi. Absent: rales - Cardiovascular Cardiovascular Exam: Present: regular rate, normal rhythm, normal heart sounds. Absent: bradycardia, tachycardia, irregular rhythm, systolic murmur, diastolic murmur, rubs, gallop - GI/Abdominal GI/Abdominal exam: Present: soft. Absent: distended, tenderness, guarding, rebound, rigid, pulsatile mass - Rectal Rectal exam: Present: deferred - Extremities Exam Extremities exam: Present: normal inspection (left upper extremity AV fistula with appropriate thrill. No redness, pus, streaking), full ROM, other (2+ pulses noted in the bilateral upper, lower extremities. Compartments soft. No long bony tenderness. The pelvis is stable.). Absent: pedal edema, joint swelling, calf tenderness - Back Exam Back exam: Present: normal inspection, full ROM. Absent: tenderness, CVA tenderness (R), paraspinal tenderness, vertebral tenderness - Neurological Exam Neurological exam: Present: alert, oriented X3, CN II-XII intact, other (Extraocular movements intact. Tongue midline. No facial droop. Facial sensation intact to light touch in the V1, V2, V3 distribution bilaterally. 5 and 5 strength in 4 extremities.. Sensation is intact to light touch in 4 extremities.). Absent: motor sensory deficit - Psychiatric Psychiatric exam: Present: anxious - Skin Skin exam: Present: warm, dry, intact, normal color. Absent: rash ED Course Vital Signs 05/05/18 05/05/18 05/05/18 13:57 14:48 15:00 Temperature 98 F Pulse Rate 96 H 86 81 Pulse Rate [ Anterior Bilateral Throughout] Respiratory 22 20 17 Rate Respiratory Rate [Anterior Bilateral Throughout] Blood Pressure 109/80 86/62 O2 Sat by Pulse 93 97 98 Oximetry 05/05/18 05/05/18 15:15 15:52 Temperature Pulse Rate 79 Pulse Rate [ 84 Anterior Bilateral Throughout] Respiratory 22 Rate Respiratory 17 Rate [Anterior Bilateral Throughout] Blood Pressure 97/63 O2 Sat by Pulse 96 Oximetry - Reevaluation(s) Reevaluation #1: 05/05/18 16:03 Differential diagnosis, including not limited to: Fluid overload, end-stage renal disease, congestive heart failure, COPD exacerbation, bronchitis, influenza, pneumonia Assessment and plan: 62-year-old gentleman with cough, wheezing, shortness of breath. He does not have appreciable JVD that is significant, x-ray of the chest not consistent with congestive heart failure, suspect COPD rather than fluid overload clinically. Somewhat hypotensive, blood pressure in the low 100s, high 90s. He will be given albuterol, Atrovent, steroids, magnesium. He will be started on positive pressure ventilation for respiratory support. The patient endorses no pulmonary embolus or DVT risk factors and he is low risk by well's criteria. His private account support rep does not have privileges at this hospital currently, so we have obtained consultation with covering account support rep, Dr. Michelle. He has personally examined the patient, and agrees with trial bolus of 250 mL of normal saline. Influenza screen negative, present for 5-6 days, of the history and physical, I have a low pre-and posttest probability for influenza so I will withhold Tamiflu at this time. We will cover empirically with Levaquin. Reevaluation #2: 05/05/18 16:22 Potassium found to be 6.7 with metabolic acidosis, azotemia and uremia. We contacted nephrology television journalist, they will arrange for emergent dialysis, and we will treat medically. Blood pressure 101/76. Patient has already received albuterol for presumed COPD. Hospital physician, Dr. Kehinde Swift , accepts the patient to the medical service. ED Medical Decision Making - Lab Data Result diagrams: 05/05/18 14:41 05/05/18 15:17 Vital Signs 05/05/18 05/05/18 05/05/18 13:57 14:48 15:00 Temperature 98 F Pulse Rate 96 H 86 81 Pulse Rate [ Anterior Bilateral Throughout] Respiratory 22 20 17 Rate Respiratory Rate [Anterior Bilateral Throughout] Blood Pressure 109/80 86/62 O2 Sat by Pulse 93 97 98 Oximetry 05/05/18 05/05/18 15:15 15:52 Temperature Pulse Rate 79 Pulse Rate [ 84 Anterior Bilateral Throughout] Respiratory 22 Rate Respiratory 17 Rate [Anterior Bilateral Throughout] Blood Pressure 97/63 O2 Sat by Pulse 96 Oximetry Lab Results 05/05/18 05/05/18 05/05/18 Range/Units 14:41 14:41 14:59 WBC 12.6 H (4.5-11.0) K/mm3 RBC 4.01 (3.65-5.03) M/mm3 Hgb 15.2 (11.8-15.2) gm/dl Hct 45.6 (35.5-45.6) % MCV 114 H (84-94) fl MCH 38 H (28-32) pg MCHC 33 (32-34) % RDW 14.2 (13.2-15.2) % Plt Count 126 L (140-440) K/mm3 PT 12.3 (12.2-14.9) Sec. INR 0.87 (0.87-1.13) APTT 23.8 L (24.2-36.6) Sec. Plasma/Serum Alcohol < 0.01 (0-0.07) % Influenza A (Rapid) (Negative) Influenza B (Rapid) (Negative) 05/05/18 Range/Units Unknown WBC (4.5-11.0) K/mm3 RBC (3.65-5.03) M/mm3 Hgb (11.8-15.2) gm/dl Hct (35.5-45.6) % MCV (84-94) fl MCH (28-32) pg MCHC (32-34) % RDW (13.2-15.2) % Plt Count (140-440) K/mm3 PT (12.2-14.9) Sec. INR (0.87-1.13) APTT (24.2-36.6) Sec. Plasma/Serum Alcohol (0-0.07) % Influenza A (Rapid) Negative (Negative) Influenza B (Rapid) Negative (Negative) - EKG Data -: EKG Interpreted by Ny EKG shows normal: sinus rhythm Rate: normal - EKG Data 05/05/18 16:02 Sinus, 85 bpm, borderline left axis deviation, atrial enlargement, left ventricular hypertrophy, abnormal EKG, QTC prolonged, TX interval borderline prolonged, abnormal EKG, appears unchanged from prior, not consistent with ST elevation myocardial infarction. - Radiology Data Radiology results: report reviewed, image reviewed Critical Care Time: Yes Critical care time in (mins) excluding proc time.: 35 Critical care attestation.: If time is entered above; I have spent that time in minutes in the direct care of this critically ill patient, excluding procedure time. ED Disposition Clinical Impression: COPD with exacerbation, ESRD (end stage renal disease) on dialysis, Hyperkalemia Disposition: OP ADMIT IP TO THIS HOSP Is pt being admited?: Yes Does the pt Need Aspirin: Yes Condition: Good Instructions: Chronic Obstructive Pulmonary Disease (ED) Referrals: PRIMARY CARE, [Primary Care Provider] - 3-5 Days
[2018-05-05] MEDS ORDERED: NACL 0.9% 250ML 250 ML IV ONE (15:00)
[2018-05-05 15:02] LABS: Hematocrit 45.6 % (35.5-45.6); Hemoglobin 15.2 gm/dl (11.8-15.2); Mean Corpuscular HGB Conc 33 % (32-34); Mean Corpuscular Volume 114 fl (84-94); Platelet Count 126 K/mm3 (140-440); Red Blood Count 4.01 M/mm3 (3.65-5.03); Red Cell Distribution Width 14.2 % (13.2-15.2)
--- NOTE | 2018-05-05 15:06 | XRay Report ---
PROCEDURE: XR CHEST 1V AP TECHNIQUE: Chest, portable upright HISTORY: copd exacerbation COMPARISON: None FINDINGS: The heart size is normal. There is no pulmonary vascular congestion seen. Mediastinal contours are normal. Lungs are clear. There is no pleural effusion seen. There is no pneumothorax seen. IMPRESSION: No acute abnormality identified. This document is electronically signed by Nadege Reyes MD., May 05 2018 03:04:39 PM ET
--- NOTE | 2018-05-05 15:09 | Consultation ---
History of Present Illness - Reason for Consult Consult date: 05/05/18 end stage renal disease - History of Present Illness The patient is a 62 YO male with history significant for Obesity, HTN, ?DM type 2, COPD, Gout, NICM, Systolic CHF and ESRD on HD on MWF who presented to the ER with complaints of shortness of breath. Patient has been having sob for the past week but got worse since yesterday. He ahd an extra session of hemodialysis yesterday and had 2 1/2 Lts of fluid removed. He didn't miss any hemodialysis treatment in the past week. Associated symptoms include cough productive of greenish phlegm, chest tightness and wheezing. CXR was negative for fluid overload. Labs showed BUN of 98, Cr 15.4 and potassium 6.7. Nephrology was consulted for management of ESRD, Hyperkalemia and HD. Past History Past Medical History: diabetes (?), dialysis, ESRD, heart failure, hypertension, other (gout) Medications and Allergies Allergies Allergy/AdvReac Type Severity Reaction Status Date / Time No Known Allergies Allergy Verified 12/18/13 07:27 Home Medications Medication Instructions Recorded Confirmed Last Taken Type Budesoni/Formotero 160-4.5(Nf) 1 puff IH BID 30 Days inha 04/10/17 05/11/17 Unknown Rx [Symbicort 160-4.5 (Nf)] Metoprolol [Lopressor TAB] 25 mg PO BID #60 tablet 04/10/17 05/11/17 Unknown Rx ALBUTEROL Inhaler (OR & NICU) 1 puff IH TID PRN 05/11/17 05/11/17 Unknown History [ProAir HFA Inhaler] Torsemide [Demadex] 80 mg PO DAILY 05/11/17 05/11/17 Unknown History Active Meds: Active Medications Levofloxacin/Dextrose (Levaquin 500mg/100ml) 500 mg in 100 mls @ 100 mls/hr IV ONCE ONE Stop: 05/05/18 15:47 Sodium Chloride (Nacl 0.9% 250ml) 250 mls @ 999 mls/hr IV ONCE ONE Stop: 05/05/18 15:15 Review of Systems Constitutional: no weight loss, no weight gain, no fever, no chills, no anorexia, no weakness, no poor appetite Cardiovascular: chest pain, shortness of breath, dyspnea on exertion, high blood pressure, decreased exercise tolerance, no edema, no syncope, no lightheadedness, no leg edema Respiratory: cough, cough with sputum, shortness of breath, dyspnea on exertion, congestion, home oxygen, no hemoptysis Gastrointestinal: no abdominal pain, no nausea, no vomiting, no diarrhea, no coffee ground emesis, no melena Genitourinary Male: no dysuria, no hematuria, no flank pain Rectal: no bleeding Musculoskeletal: no muscle weakness Integumentary: no rash, no pruritis, no wounds, no jaundice Neurological: no paralysis, no seizures, no syncope, no headaches, no convulsions, no aphasia, no change in speech, no change in mentation, no confusion, no memory loss, no sensory deficit, no double vision, no loss of vision Exam - Vital Signs Vital signs: Vital Signs Temp Pulse Resp BP Pulse Ox 98 F 96 H 22 109/80 93 05/05/18 13:57 05/05/18 13:57 05/05/18 13:57 05/05/18 13:57 05/05/18 13:57 - General Appearance General appearance: well-developed, well-nourished, appears stated age, obese, other (mild discomfort due to sob) EENT: ATNC, PERRL, hearing intact, vision intact Neck: Present: neck supple, trachea midline Respiratory: Ronchi Heart: regular, S1S2, no murmurs Gastrointestinal: Present: normoactive bowel sounds. Absent: tenderness, distended Integumentary: no rash, warm and dry Neurologic: no focal deficit, no asterixis, alert and oriented x3 Musculoskeletal: Present: other (no edema, left FA AVF) Psychiatric: cooperative Results - Lab Results 05/05/18 14:41 05/05/18 15:17 Assessment and Plan 1. Hyperkalemia: Admitted with K of 6.7. Urgent hemodialysis today, orders placed and informed the patient care services. Low potassium diet. 2. ESRD: Hemodialysis today. His regular schedule is [facility]. 3. Hypotension: One dose of Midodrine prior to HD. 4. Shortness of breath: Likely COPD exacerbation. 5. H/o systolic CHF. 6. HTN. 7. Elevated blood sugar: Check HbA1C.
[2018-05-05 15:20] LABS: INR 0.87 (0.87-1.13)
[2018-05-05 15:21] LABS: Partial Thromboplastin Time 23.8 Sec. (24.2-36.6)
[2018-05-05] MEDS ORDERED: BABY ASPIRIN PO ONE (16:05)
[2018-05-05 16:12] LABS: Calcium 10.1 mg/dL (8.4-10.2)
[2018-05-05] MEDS ORDERED: KIONEX PO ONE (16:20)
[2018-05-05] MEDS ORDERED: HumuLIN R IV ONE (16:20)
[2018-05-05] MEDS ORDERED: D50W (25GM) Syringe IV ONE (16:20)
[2018-05-05] MEDS ORDERED: NACL 0.9% 100 ML IV PRN ×2 (16:33→20:18)
[2018-05-05] MEDS ORDERED: NACL 0.9% IV ONE (17:00)
[2018-05-05] MEDS ORDERED: LASIX IV ONE (17:00)
[2018-05-05] MEDS ORDERED: PROAMATINE PO ONE (17:00)
[2018-05-05] MEDS ORDERED: CALCIUM GLUCONATE 1,000 MG in NACL 0.9% 100 ML IV ONE (17:00)
[2018-05-05] MEDS ORDERED: NACL 0.9 (PRIMING MACHINE ONLY DIALYSIS) MC ONE (21:02)
[2018-05-05 21:05] LABS: Hepatitis B Surface Antigen Non-Reactive (Negative); Hepatitis C Virus Antibody Non-Reactive (NonReactive)
[2018-05-05] MEDS ORDERED: TYLENOL PO PRN (23:54)
[2018-05-05] MEDS ORDERED: ZOFRAN IV PRN (23:54)
[2018-05-05] MEDS ORDERED: SODIUM CHLORIDE FLUSH SYRINGE 10 ML IV PRN (23:54)
[2018-05-05] MEDS ORDERED: PERCOCET 5/325 PO PRN (23:54)
[2018-05-05] MEDS ORDERED: DILAUDID IV PRN (23:54)
--- NOTE | 2018-05-05 23:54 | History and Physical Report ---
History of Present Illness Date of examination: 05/05/18 Date of admission: 05/05/18 16:22 Chief complaint: Increasing Sob for 2 to 3 days History of present illness: 62-year-old male with past medical history of end-stage renal disease, on dialysis, Sunday, Sunday, Sunday HTN,CHF and COPD presents with increasing SOB.SOB on minimsal exetion.Orthopnea present.No fever or chills. Has class IV NYHA symptoms. Past Medical History Hypertension: Yes Congestive Heart Failure: Yes Diabetes: Yes Renal Disease: Yes (HD) Arthritis: Yes COPD: Yes Additional medical history: gout Surgical History Hx Appendectomy: Yes Additional Surgical History: fistula left forearm Social History Smoking Status: Former Smoker Substance Use Type: Prescribed Family History Htn Medications Home Medications: Home Medications Medication Instructions Recorded Confirmed Last Taken Type Budesoni/Formotero 160-4.5(Nf) 1 puff IH BID 30 Days inha 04/10/17 05/11/17 Unknown Rx [Symbicort 160-4.5 (Nf)] Metoprolol [Lopressor TAB] 25 mg PO BID #60 tablet 04/10/17 05/11/17 Unknown Rx ALBUTEROL Inhaler (OR & NICU) 1 puff IH TID PRN 05/11/17 05/11/17 Unknown History [ProAir HFA Inhaler] Torsemide [Demadex] 80 mg PO DAILY 05/11/17 05/11/17 Unknown History Review of Systems ROS: Stated complaint: LEONEL/COLD Other details as noted in HPI Constitutional: malaise, weakness. denies: fever Eyes: denies: eye discharge ENT: congestion Respiratory: cough, shortness of breath, wheezing Cardiovascular: chest pain (chest tightness) Gastrointestinal: denies: abdominal pain, nausea, vomiting Genitourinary: denies: dysuria Musculoskeletal: arthralgia, myalgia. denies: back pain Skin: denies: lesions Neurological: weakness Past History Past Medical History: diabetes (?), dialysis, ESRD, heart failure, hypertension, other (gout) Medications and Allergies Allergies Allergy/AdvReac Type Severity Reaction Status Date / Time No Known Allergies Allergy Verified 12/18/13 07:27 Home Medications Medication Instructions Recorded Confirmed Last Taken Type Metoprolol [Lopressor TAB] 25 mg PO BID #60 tablet 04/10/17 05/06/18 Unknown Rx Adult One Daily Multivit Tab 1 tab PO QDAY 05/06/18 05/06/18 05/05/18 History Sucroferric Oxyhydroxide [Velphoro] 2 tab PO TID 05/06/18 05/06/18 05/05/18 History Active Meds: Active Medications Sodium Chloride (Nacl 0.9%) 100 mls @ 999 mls/hr IV FRANSISCO PRN PRN Reason: Hypotension Sodium Chloride (Nacl 0.9%) 100 mls @ 999 mls/hr IV FRANSISCO PRN PRN Reason: Hypotension Exam - Constitutional Vitals: Temp Pulse Resp BP Pulse Ox 97.8 F 83 20 93/63 91 05/05/18 23:21 05/05/18 23:21 05/05/18 23:21 05/05/18 23:21 05/05/18 23:21 General appearance: Present: mild distress, well-nourished - EENT Eyes: Present: PERRL ENT: hearing intact, clear oral mucosa - Neck Neck: Present: supple, normal ROM - Respiratory Respiratory effort: normal Respiratory: bilateral: CTA - Cardiovascular Heart rate: 85 Rhythm: regular Heart Sounds: Present: S1 & S2. Absent: rub, click - Extremities Extremities: no ischemia, pulses intact, pulses symmetrical, No edema Peripheral Pulses: within normal limits - Abdominal General gastrointestinal: Present: soft, non-tender, non-distended, normal bowel sounds Male genitourinary: Present: deferred - Rectal Rectal Exam: deferred - Integumentary Integumentary: Present: clear, warm, dry - Musculoskeletal Musculoskeletal: gait normal, strength equal bilaterally - Psychiatric Psychiatric: appropriate mood/affect, intact judgment & insight - Neurologic Neurologic: CNII-XII intact, moves all extremities - Allied Health Allied health notes reviewed: nursing, case management Results - Labs CBC & Chem 7: 05/05/18 14:41 05/05/18 15:17 Labs: Laboratory Last Values WBC 12.6 K/mm3 (4.5-11.0) H 05/05/18 14:41 RBC 4.01 M/mm3 (3.65-5.03) 05/05/18 14:41 Hgb 15.2 gm/dl (11.8-15.2) 05/05/18 14:41 Hct 45.6 % (35.5-45.6) 05/05/18 14:41 MCV 114 fl (84-94) H 05/05/18 14:41 MCH 38 pg (28-32) H 05/05/18 14:41 MCHC 33 % (32-34) 05/05/18 14:41 RDW 14.2 % (13.2-15.2) 05/05/18 14:41 Plt Count 126 K/mm3 (140-440) L 05/05/18 14:41 PT 12.3 Sec. (12.2-14.9) 05/05/18 14:41 INR 0.87 (0.87-1.13) 05/05/18 14:41 APTT 23.8 Sec. (24.2-36.6) L 05/05/18 14:41 Sodium 137 mmol/L (137-145) 05/05/18 15:17 Potassium 6.7 mmol/L (3.6-5.0) H* 05/05/18 15:17 Chloride 93.5 mmol/L (98-107) L 05/05/18 15:17 Carbon Dioxide 17 mmol/L (22-30) L 05/05/18 15:17 Anion Gap 33 mmol/L 05/05/18 15:17 BUN 98 mg/dL (9-20) H 05/05/18 15:17 Creatinine 15.4 mg/dL (0.8-1.5) H 05/05/18 15:17 Estimated GFR 4 ml/min 05/05/18 15:17 BUN/Creatinine Ratio 6 % 05/05/18 15:17 Glucose 106 mg/dL (75-100) H 05/05/18 15:17 Calcium 10.1 mg/dL (8.4-10.2) 05/05/18 15:17 Magnesium 2.70 mg/dL (1.7-2.3) H 05/05/18 15:17 Troponin T 0.097 ng/mL (0.00-0.029) H 05/05/18 15:17 NT-Pro-B Natriuret Pep 8070 pg/mL (0-900) H 05/05/18 15:17 Plasma/Serum Alcohol < 0.01 % (0-0.07) 05/05/18 14:59 Hepatitis A IgM Ab Non-reactive (NonReactive) 05/05/18 20:25 Hep Bs Antigen Non-reactive (Negative) 05/05/18 20:25 Hep B Core IgM Ab Non-reactive (NonReactive) 05/05/18 20:25 Hepatitis C Antibody Non-reactive (NonReactive) 05/05/18 20:25 Influenza A (Rapid) Negative (Negative) 05/05/18 Unknown Influenza B (Rapid) Negative (Negative) 05/05/18 Unknown - Imaging and Cardiology EKG: report reviewed (NSR 85/min) Chest x-ray: report reviewed Imaging and Cardiology: CXR IMPRESSION: No acute abnormality identified. Assessment and Plan Advance Directives: Yes (Full code) VTE prophylaxis?: Chemical Plan of care discussed with patient/family: Yes - Patient Problems (1) Hyperkalemia Current Visit: Yes Status: Acute Plan to address problem: Patient being taken for emergent HD Patient given Calcium Gluconate INsulin/Dextrose/Kayexalate in ED Recheck K level (2) Volume overload Current Visit: Yes Status: Acute Plan to address problem: Emergent HD for UF (3) ESRD (end stage renal disease) on dialysis Current Visit: Yes Status: Chronic Plan to address problem: Cont HD (4) HTN (hypertension) Current Visit: No Status: Chronic Qualifiers: Hypertension type: essential hypertension Qualified Code(s): I10 - Essential (primary) hypertension Plan to address problem: Cont antihypertensives (5) T2DM (type 2 diabetes mellitus) Current Visit: Yes Status: Chronic Qualifiers: 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
[2018-05-06] MEDS: SODIUM CHLORIDE FLUSH SYRINGE 10 ML IV SCH ×2 (00:24→09:47)
[2018-05-06 05:33] LABS: Hematocrit 43.3 % (35.5-45.6); Hemoglobin 14.4 gm/dl (11.8-15.2); Mean Corpuscular HGB Conc 33 % (32-34); Red Blood Count 3.84 M/mm3 (3.65-5.03)
[2018-05-06 05:43] LABS: Mean Corpuscular Volume 113 fl (84-94)
[2018-05-06 06:50] LABS: Basophils % (Manual) 0 % (0.0-1.8); Eosinophils % (Manual) 0 % (0.0-4.3); Macrocytosis 1+; Platelet Estimate Consistent w Auto; Total Cells Counted 100
[2018-05-06 06:51] LABS: Platelet Count 125 K/mm3 (140-440)
[2018-05-06] MEDS ORDERED: SUCROFERRIC OXYHYDROXIDE PO SCH (08:00)
[2018-05-06] MEDS: VELPHORO PO SCH ×3 (08:25→18:28)
[2018-05-06] MEDS: LOPRESSOR PO SCH ×2 (09:40→22:24)
[2018-05-06] MEDS: HEPARIN SUB-Q SCH ×2 (09:41→22:27)
[2018-05-06] MEDS: PEPCID PO SCH ×2 (09:41→22:27)
[2018-05-06] MEDS ORDERED: NACL 0.9% 100 ML IV PRN (10:00)
--- NOTE | 2018-05-06 10:01 | Progress Note ---
Assessment and Plan 1. Hyperkalemia: Admitted with K of 6.7. Received hemodialysis yesterday and the repeat K is 6. Hemodialysis today. Low potassium diet. 2. ESRD: Hemodialysis today. His regular schedule is [facility]. 3. Hypotension: Monitor. 4. Shortness of breath: Likely COPD exacerbation. 5. H/o systolic CHF. 6. HTN. 7. Elevated blood sugar: HbA1C normal. Subjective Date of service: 05/06/18 Interval history: Patient c/o sob and wheezing. Objective - Vital Signs Vital signs: Vital Signs - 12hr 05/05/18 05/05/18 05/05/18 22:06 22:17 23:21 Temperature 98.7 F 97.6 F 97.8 F Pulse Rate 58 L 46 L 83 Pulse Rate [ Apical] Respiratory 21 20 20 Rate Blood Pressure 123/62 82/51 93/63 O2 Sat by Pulse 91 91 Oximetry 05/05/18 05/06/18 05/06/18 23:40 00:45 00:55 Temperature Pulse Rate 74 Pulse Rate [ 83 Apical] Respiratory 20 20 Rate Blood Pressure O2 Sat by Pulse 95 95 95 Oximetry 05/06/18 05/06/18 05/06/18 04:06 05:34 09:40 Temperature 97.5 F L Pulse Rate 89 89 Pulse Rate [ Apical] Respiratory 22 Rate Blood Pressure 110/68 110/68 O2 Sat by Pulse 95 96 Oximetry - General Appearance General appearance: well-developed, well-nourished, appears stated age, obese, other (mild respiratory distress) EENT: ATNC, hearing intact, vision intact Neck: supple Respiratory: Present: Ronchi Cardiology: regular, S1S2, no murmurs Gastrointestinal: normoactive bowel sounds, no tenderness, no distended Integumentary: no rash, warm and dry Neurologic: no focal deficit, no asterixis, alert and oriented x3 Musculoskeletal: other (no edema, left FA AVF) Psychiatric: cooperative - Lab 05/06/18 04:53 05/06/18 04:53 Most recent lab results Calcium 10.0 mg/dL (8.4-10.2) 05/06/18 04:53 Magnesium 2.70 mg/dL (1.7-2.3) H 05/05/18 15:17 Medications & Allergies - Medications Allergies/Adverse Reactions: Allergies No Known Allergies Allergy (Verified 12/18/13 07:27) Home Medications: Home Medications Medication Instructions Recorded Confirmed Last Taken Type Metoprolol [Lopressor TAB] 25 mg PO BID #60 tablet 04/10/17 05/06/18 Unknown Rx Adult One Daily Multivit Tab 1 tab PO QDAY 05/06/18 05/06/18 05/05/18 History Sucroferric Oxyhydroxide(Nf) 2 tab PO TID 05/06/18 05/06/18 05/05/18 History [Velphoro] Active Medications: Generic Name Dose Route Start Last Admin Trade Name Freq PRN Reason Stop Dose Admin Acetaminophen 650 mg 05/05/18 23:54 Tylenol PO Q4H PRN Pain MILD(1-3)/Fever >100.5/ABERNATHY Famotidine 10 mg 05/06/18 10:00 05/06/18 09:41 Pepcid PO 10 mg BID JOSE Administration Heparin Sodium (Porcine) 5,000 unit 05/06/18 10:00 05/06/18 09:41 Heparin SUB-Q 5,000 unit Q12HR JOSE Administration Hydromorphone HCl 0.5 mg 05/05/18 23:54 Dilaudid IV Q3H PRN Pain , Severe (7-10) Sodium Chloride 100 mls @ 999 mls/hr 05/06/18 10:00 Nacl 0.9% IV FRANSISCO PRN Hypotension Metoprolol Tartrate 25 mg 05/06/18 10:00 05/06/18 09:40 Lopressor PO 25 mg BID JOSE Administration Ondansetron HCl 4 mg 05/05/18 23:54 Zofran IV Q8H PRN Nausea And Vomiting Oxycodone/Acetaminophen 1 tab 05/05/18 23:54 05/06/18 09:41 Percocet 5/325 PO 1 tab Q6H PRN Administration Pain, Moderate (4-6) Sodium Chloride 10 ml 05/05/18 23:45 05/06/18 09:47 Sodium Chloride Flush Syringe 10 Ml IV 10 ml BID JOSE Administration Sodium Chloride 10 ml 05/05/18 23:54 Sodium Chloride Flush Syringe 10 Ml IV PRN PRN LINE FLUSH
--- NOTE | 2018-05-06 10:14 | Progress Note ---
Assessment and Plan Assessment and plan: 62-year-old gentleman with past medical history of end-stage renal disease, tobacco use although quit about 3 months ago, COPD, hypertension presented to the hospital with complaints of cough, wheezing, shortness of breath. Patient reported compliance with medication, in the ED was felt to have COPD exa cerbation rather than heart failure based on evaluation. Was ALSO noted to have elevated Potassium requiring Dialysis. He was also somewhat hypotensive (1) COPD (chronic obstructive pulmonary disease) with exacerbation Current Visit: Yes Status: Chronic Qualifiers: Emphysema type: unspecified Plan to address problem: Cont bronchodilators Received steroid in the ED Continue encouraging patient to maintain smoking cessation Leukocytosis likely reactive from Steroids and Cough. Monitor. 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 Plan to address problem: Coverage for now 4.8 (6)Hyperkalemia Current Visit: Yes Status: Acute Plan to address problem: Corrected Had emergent HD and again dialysis Patient given Calcium Gluconate INsulin/Dextrose/Kayexalate in ED Recheck K level (7) DVT prophylaxis Current Visit: No Status: Acute Plan to address problem: On Heparin and GI prophylaxis History Interval history: Patient seen and examined this afternoon and no active distress following dialysis patient was noted to have low blood pressure patient reports diaphoresis and has been having intermittent changes in his blood pressure with dialysis. He still has a nonproductive cough. He denies any chest pain or fever. Hospitalist Physical - Physical exam Narrative exam: VITAL SIGNS: Reviewed. GENERAL: The patient appeared well nourished and normally developed. Vital signs as documented. HEAD: No signs of head trauma. EYES: Pupils are equal. Extraocular motions intact. EARS: Hearing grossly intact. MOUTH: Oropharynx is normal. Except some missing dentition NECK: No adenopathy, no JVD. CHEST: Chest with clear breath sounds bilaterally. No wheezes, rales, or rhonchi. CARDIAC: Regular rate and rhythm. S1 and S2, without murmurs, gallops, or rubs. VASCULAR: No Edema. Peripheral pulses normal and equal in all extremities. ABDOMEN: Soft, without detectable tenderness. No sign of distention. No rebound or guarding, and no masses palpated. Bowel Sounds normal. MUSCULOSKELETAL: Good range of motion of all major joints. Extremities without clubbing, cyanosis or edema. NEUROLOGIC EXAM: Alert and oriented x 3. No focal sensory or strength deficit s. Speech normal. Follows commands. PSYCHIATRIC: Mood normal. SKIN: No rash or lesions. - Constitutional Vitals: Temp Pulse Resp BP Pulse Ox 97.5 F L 89 22 110/68 96 05/06/18 04:06 05/06/18 09:40 05/06/18 04:06 05/06/18 09:40 05/06/18 05:34 General appearance: Present: mild distress, well-nourished Results - Labs CBC & Chem 7: 05/06/18 04:53 05/06/18 04:53 Labs: Laboratory Last Values WBC 16.9 K/mm3 (4.5-11.0) H 05/06/18 04:53 RBC 3.84 M/mm3 (3.65-5.03) 05/06/18 04:53 Hgb 14.4 gm/dl (11.8-15.2) 05/06/18 04:53 Hct 43.3 % (35.5-45.6) 05/06/18 04:53 MCV 113 fl (84-94) H 05/06/18 04:53 MCH 38 pg (28-32) H 05/06/18 04:53 MCHC 33 % (32-34) 05/06/18 04:53 RDW 14.0 % (13.2-15.2) 05/06/18 04:53 Plt Count 125 K/mm3 (140-440) L 05/06/18 04:53 Add Manual Diff Complete 05/06/18 04:53 Total Counted 100 05/06/18 04:53 Seg Neutrophils % Therapy Assistant 05/06/18 04:53 Seg Neuts % (Manual) 91.0 % (40.0-70.0) H 05/06/18 04:53 Band Neutrophils % 0 % 05/06/18 04:53 Lymphocytes % (Manual) 7.0 % (13.4-35.0) L 05/06/18 04:53 Reactive Lymphs % (Man) 0 % 05/06/18 04:53 Monocytes % (Manual) 2.0 % (0.0-7.3) 05/06/18 04:53 Eosinophils % (Manual) 0 % (0.0-4.3) 05/06/18 04:53 Basophils % (Manual) 0 % (0.0-1.8) 05/06/18 04:53 Metamyelocytes % 0 % 05/06/18 04:53 Myelocytes % 0 % 05/06/18 04:53 Promyelocytes % 0 % 05/06/18 04:53 Blast Cells % 0 % 05/06/18 04:53 Nucleated RBC % Not Reportable 05/06/18 04:53 Seg Neutrophils # Man 15.4 K/mm3 (1.8-7.7) H 05/06/18 04:53 Band Neutrophils # 0.0 K/mm3 05/06/18 04:53 Lymphocytes # (Manual) 1.2 K/mm3 (1.2-5.4) 05/06/18 04:53 Abs React Lymphs (Man) 0.0 K/mm3 05/06/18 04:53 Monocytes # (Manual) 0.3 K/mm3 (0.0-0.8) 05/06/18 04:53 Eosinophils # (Manual) 0.0 K/mm3 (0.0-0.4) 05/06/18 04:53 Basophils # (Manual) 0.0 K/mm3 (0.0-0.1) 05/06/18 04:53 Metamyelocytes # 0.0 K/mm3 05/06/18 04:53 Myelocytes # 0.0 K/mm3 05/06/18 04:53 Promyelocytes # 0.0 K/mm3 05/06/18 04:53 Blast Cells # 0.0 K/mm3 05/06/18 04:53 WBC Morphology Not Reportable 05/06/18 04:53 Hypersegmented Neuts Not Reportable 05/06/18 04:53 Hyposegmented Neuts Not Reportable 05/06/18 04:53 Hypogranular Neuts Not Reportable 05/06/18 04:53 Smudge Cells Not Reportable 05/06/18 04:53 Toxic Granulation Not Reportable 05/06/18 04:53 Toxic Vacuolation Not Reportable 05/06/18 04:53 Dohle Bodies Not Reportable 05/06/18 04:53 Pelger-Huet Anomaly Not Reportable 05/06/18 04:53 [place] Rods Not Reportable 05/06/18 04:53 Platelet Estimate Consistent w auto 05/06/18 04:53 Clumped Platelets Not Reportable 05/06/18 04:53 Plt Clumps, EDTA Not Reportable 05/06/18 04:53 Large Platelets Not Reportable 05/06/18 04:53 Giant Platelets Not Reportable 05/06/18 04:53 Platelet Satelliting Not Reportable 05/06/18 04:53 Plt Morphology Comment Not Reportable 05/06/18 04:53 RBC Morphology Not Reportable 05/06/18 04:53 Dimorphic RBCs Not Reportable 05/06/18 04:53 Polychromasia Not Reportable 05/06/18 04:53 Hypochromasia Not Reportable 05/06/18 04:53 Poikilocytosis Not Reportable 05/06/18 04:53 Anisocytosis Not Reportable 05/06/18 04:53 Microcytosis Not Reportable 05/06/18 04:53 Macrocytosis 1+ 05/06/18 04:53 Spherocytes Not Reportable 05/06/18 04:53 Pappenheimer Bodies Not Reportable 05/06/18 04:53 Sickle Cells Not Reportable 05/06/18 04:53 Target Cells Not Reportable 05/06/18 04:53 Tear Drop Cells Not Reportable 05/06/18 04:53 Ovalocytes Not Reportable 05/06/18 04:53 Helmet Cells Not Reportable 05/06/18 04:53 Bai-Saticoy Bodies Not Reportable 05/06/18 04:53 [place] Rings Not Reportable 05/06/18 04:53 [place] Cells Not Reportable 05/06/18 04:53 Bite Cells Not Reportable 05/06/18 04:53 Crenated Cell Not Reportable 05/06/18 04:53 Elliptocytes Not Reportable 05/06/18 04:53 Acanthocytes (Spur) Not Reportable 05/06/18 04:53 Rouleaux Not Reportable 05/06/18 04:53 Hemoglobin C Crystals Not Reportable 05/06/18 04:53 Schistocytes Not Reportable 05/06/18 04:53 Malaria parasites Not Reportable 05/06/18 04:53 Con Bodies Not Reportable 05/06/18 04:53 Hem Pathologist Commnt No 05/06/18 04:53 PT 12.3 Sec. (12.2-14.9) 05/05/18 14:41 INR 0.87 (0.87-1.13) 05/05/18 14:41 APTT 23.8 Sec. (24.2-36.6) L 05/05/18 14:41 Sodium 133 mmol/L (137-145) L 05/06/18 04:53 Potassium 6.0 mmol/L (3.6-5.0) H 05/06/18 04:53 Chloride 91.0 mmol/L (98-107) L 05/06/18 04:53 Carbon Dioxide 18 mmol/L (22-30) L 05/06/18 04:53 Anion Gap 30 mmol/L 05/06/18 04:53 BUN 81 mg/dL (9-20) H 05/06/18 04:53 Creatinine 14.2 mg/dL (0.8-1.5) H 05/06/18 04:53 Estimated GFR 4 ml/min 05/06/18 04:53 BUN/Creatinine Ratio 6 % 05/06/18 04:53 Glucose 151 mg/dL (75-100) H 05/06/18 04:53 POC Glucose 126 (70-105) H 05/06/18 08:46 Hemoglobin A1c 4.8 % (4-6) 05/06/18 04:53 Calcium 10.0 mg/dL (8.4-10.2) 05/06/18 04:53 Magnesium 2.70 mg/dL (1.7-2.3) H 05/05/18 15:17 Troponin T 0.097 ng/mL (0.00-0.029) H 05/05/18 15:17 NT-Pro-B Natriuret Pep 8070 pg/mL (0-900) H 05/05/18 15:17 Plasma/Serum Alcohol < 0.01 % (0-0.07) 05/05/18 14:59 Hepatitis A IgM Ab Non-reactive (NonReactive) 05/05/18 20:25 Hep Bs Antigen Non-reactive (Negative) 05/05/18 20:25 Hep B Core IgM Ab Non-reactive (NonReactive) 05/05/18 20:25 Hepatitis C Antibody Non-reactive (NonReactive) 05/05/18 20:25 Influenza A (Rapid) Negative (Negative) 05/05/18 Unknown Influenza B (Rapid) Negative (Negative) 05/05/18 Unknown
[2018-05-06] MEDS ORDERED: NACL 0.9 (PRIMING MACHINE ONLY DIALYSIS) MC ONE (13:10)
[2018-05-06] MEDS ORDERED: NACL 0.9% 250ML 250 ML ONE (16:53)
[2018-05-06] MEDS ORDERED: NACL 0.9% 1000 ML 250 ML IV ONE (17:00)
[2018-05-07 06:48] LABS: Hematocrit 40.3 % (35.5-45.6); Hemoglobin 13.5 gm/dl (11.8-15.2); Mean Corpuscular HGB Conc 34 % (32-34); Mean Corpuscular Volume 113 fl (84-94); Platelet Count 129 K/mm3 (140-440); Red Blood Count 3.57 M/mm3 (3.65-5.03); Red Cell Distribution Width 13.5 % (13.2-15.2)
[2018-05-07 06:50] LABS: Calcium 9.1 mg/dL (8.4-10.2)
[2018-05-07] MEDS: VELPHORO PO SCH ×3 (08:23→17:15)
--- NOTE | 2018-05-07 10:39 | Progress Note ---
Assessment and Plan Assessment and plan: 62-year-old gentleman with past medical history of end-stage renal disease, tobacco use although quit about 3 months ago, COPD, hypertension presented to the hospital with complaints of cough, wheezing, shortness of breath. Patient reported compliance with medication, in the ED was felt to have COPD exa cerbation rather than heart failure based on evaluation. Was ALSO noted to have elevated Potassium requiring Dialysis. He was also somewhat hypotensive (1) COPD (chronic obstructive pulmonary disease) with exacerbation Current Visit: Yes Status: Chronic Qualifiers: Emphysema type: unspecified Plan to address problem: Cont bronchodilators, Steroids, Oral abx for possible underlying Bronchitis Received steroid in the ED Continue encouraging patient to maintain smoking cessation Leukocytosis likely reactive from Steroids and Cough. Monitor. 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 Anticipate discharge in am History Interval history: Patient seen and examined this afternoon and no active distress, BP improved, she reports generalized tiredness and cough, no shortness of breath today. cough is non productive. Hospitalist Physical - Physical exam Narrative exam: VITAL SIGNS: Reviewed. GENERAL: The patient appeared well nourished and normally developed. Vital signs as documented. HEAD: No signs of head trauma. EYES: Pupils are equal. Extraocular motions intact. EARS: Hearing grossly intact. MOUTH: Oropharynx is normal. Except some missing dentition NECK: No adenopathy, no JVD. CHEST: Chest with wheezing breath sounds bilaterally. No rales, or rhonchi. CARDIAC: Regular rate and rhythm. S1 and S2, without murmurs, gallops, or rubs. VASCULAR: No Edema. Peripheral pulses normal and equal in all extremities. ABDOMEN: Soft, without detectable tenderness. No sign of distention. No rebound or guarding, and no masses palpated. Bowel Sounds normal. MUSCULOSKELETAL: Good range of motion of all major joints. Extremities without clubbing, cyanosis or edema. NEUROLOGIC EXAM: Alert and oriented x 3. No focal sensory or strength deficits. Speech normal. Follows commands. PSYCHIATRIC: Mood normal. SKIN: No rash or lesions. - Constitutional Vitals: Temp Pulse Resp BP Pulse Ox 98.5 F 74 20 117/94 95 05/07/18 05:31 05/07/18 05:31 05/07/18 05:31 05/07/18 05:31 05/07/18 05:31 General appearance: Present: mild distress, well-nourished Results - Labs CBC & Chem 7: 05/07/18 05:01 05/07/18 05:01 Labs: Laboratory Last Values WBC 13.3 K/mm3 (4.5-11.0) H 05/07/18 05:01 RBC 3.57 M/mm3 (3.65-5.03) L 05/07/18 05:01 Hgb 13.5 gm/dl (11.8-15.2) 05/07/18 05:01 Hct 40.3 % (35.5-45.6) 05/07/18 05:01 MCV 113 fl (84-94) H 05/07/18 05:01 MCH 38 pg (28-32) H 05/07/18 05:01 MCHC 34 % (32-34) 05/07/18 05:01 RDW 13.5 % (13.2-15.2) 05/07/18 05:01 Plt Count 129 K/mm3 (140-440) L 05/07/18 05:01 Add Manual Diff Complete 05/06/18 04:53 Total Counted 100 05/06/18 04:53 Seg Neutrophils % Board [place] 05/06/18 04:53 Seg Neuts % (Manual) 91.0 % (40.0-70.0) H 05/06/18 04:53 Band Neutrophils % 0 % 05/06/18 04:53 Lymphocytes % (Manual) 7.0 % (13.4-35.0) L 05/06/18 04:53 Reactive Lymphs % (Man) 0 % 05/06/18 04:53 Monocytes % (Manual) 2.0 % (0.0-7.3) 05/06/18 04:53 Eosinophils % (Manual) 0 % (0.0-4.3) 05/06/18 04:53 Basophils % (Manual) 0 % (0.0-1.8) 05/06/18 04:53 Metamyelocytes % 0 % 05/06/18 04:53 Myelocytes % 0 % 05/06/18 04:53 Promyelocytes % 0 % 05/06/18 04:53 Blast Cells % 0 % 05/06/18 04:53 Nucleated RBC % Not Reportable 05/06/18 04:53 Seg Neutrophils # Man 15.4 K/mm3 (1.8-7.7) H 05/06/18 04:53 Band Neutrophils # 0.0 K/mm3 05/06/18 04:53 Lymphocytes # (Manual) 1.2 K/mm3 (1.2-5.4) 05/06/18 04:53 Abs React Lymphs (Man) 0.0 K/mm3 05/06/18 04:53 Monocytes # (Manual) 0.3 K/mm3 (0.0-0.8) 05/06/18 04:53 Eosinophils # (Manual) 0.0 K/mm3 (0.0-0.4) 05/06/18 04:53 Basophils # (Manual) 0.0 K/mm3 (0.0-0.1) 05/06/18 04:53 Metamyelocytes # 0.0 K/mm3 05/06/18 04:53 Myelocytes # 0.0 K/mm3 05/06/18 04:53 Promyelocytes # 0.0 K/mm3 05/06/18 04:53 Blast Cells # 0.0 K/mm3 05/06/18 04:53 WBC Morphology Not Reportable 05/06/18 04:53 Hypersegmented Neuts Not Reportable 05/06/18 04:53 Hyposegmented Neuts Not Reportable 05/06/18 04:53 Hypogranular Neuts Not Reportable 05/06/18 04:53 Smudge Cells Not Reportable 05/06/18 04:53 Toxic Granulation Not Reportable 05/06/18 04:53 Toxic Vacuolation Not Reportable 05/06/18 04:53 Dohle Bodies Not Reportable 05/06/18 04:53 Pelger-Huet Anomaly Not Reportable 05/06/18 04:53 Madison Rods Not Reportable 05/06/18 04:53 Platelet Estimate Consistent w auto 05/06/18 04:53 Clumped Platelets Not Reportable 05/06/18 04:53 Plt Clumps, EDTA Not Reportable 05/06/18 04:53 Large Platelets Not Reportable 05/06/18 04:53 Giant Platelets Not Reportable 05/06/18 04:53 Platelet Satelliting Not Reportable 05/06/18 04:53 Plt Morphology Comment Not Reportable 05/06/18 04:53 RBC Morphology Not Reportable 05/06/18 04:53 Dimorphic RBCs Not Reportable 05/06/18 04:53 Polychromasia Not Reportable 05/06/18 04:53 Hypochromasia Not Reportable 05/06/18 04:53 Poikilocytosis Not Reportable 05/06/18 04:53 Anisocytosis Not Reportable 05/06/18 04:53 Microcytosis Not Reportable 05/06/18 04:53 Macrocytosis 1+ 05/06/18 04:53 Spherocytes Not Reportable 05/06/18 04:53 Pappenheimer Bodies Not Reportable 05/06/18 04:53 Sickle Cells Not Reportable 05/06/18 04:53 Target Cells Not Reportable 05/06/18 04:53 Tear Drop Cells Not Reportable 05/06/18 04:53 Ovalocytes Not Reportable 05/06/18 04:53 Helmet Cells Not Reportable 05/06/18 04:53 B[place] Bodies Not Reportable 05/06/18 04:53 [place] Rings Not Reportable 05/06/18 04:53 [place] Cells Not Reportable 05/06/18 04:53 Bite Cells Not Reportable 05/06/18 04:53 Crenated Cell Not Reportable 05/06/18 04:53 Elliptocytes Not Reportable 05/06/18 04:53 Acanthocytes (Spur) Not Reportable 05/06/18 04:53 Rouleaux Not Reportable 05/06/18 04:53 Hemoglobin C Crystals Not Reportable 05/06/18 04:53 Schistocytes Not Reportable 05/06/18 04:53 Malaria parasites Not Reportable 05/06/18 04:53 Con Bodies Not Reportable 05/06/18 04:53 Hem Pathologist Commnt No 05/06/18 04:53 PT 12.3 Sec. (12.2-14.9) 05/05/18 14:41 INR 0.87 (0.87-1.13) 05/05/18 14:41 APTT 23.8 Sec. (24.2-36.6) L 05/05/18 14:41 Sodium 137 mmol/L (137-145) 05/07/18 05:01 Potassium 5.0 mmol/L (3.6-5.0) 05/07/18 05:01 Chloride 92.6 mmol/L (98-107) L 05/07/18 05:01 Carbon Dioxide 24 mmol/L (22-30) 05/07/18 05:01 Anion Gap 25 mmol/L 05/07/18 05:01 BUN 67 mg/dL (9-20) H 05/07/18 05:01 Creatinine 12.1 mg/dL (0.8-1.5) H 05/07/18 05:01 Estimated GFR 5 ml/min 05/07/18 05:01 BUN/Creatinine Ratio 6 % 05/07/18 05:01 Glucose 91 mg/dL (75-100) 05/07/18 05:01 POC Glucose 85 (70-105) 05/07/18 08:34 Hemoglobin A1c 4.8 % (4-6) 05/06/18 04:53 Calcium 9.1 mg/dL (8.4-10.2) 05/07/18 05:01 Magnesium 2.70 mg/dL (1.7-2.3) H 05/05/18 15:17 Troponin T 0.097 ng/mL (0.00-0.029) H 05/05/18 15:17 NT-Pro-B Natriuret Pep 8070 pg/mL (0-900) H 05/05/18 15:17 Plasma/Serum Alcohol < 0.01 % (0-0.07) 05/05/18 14:59 Hepatitis A IgM Ab Non-reactive (NonReactive) 05/05/18 20:25 Hep Bs Antigen Non-reactive (Negative) 05/05/18 20:25 Hep B Core IgM Ab Non-reactive (NonReactive) 05/05/18 20:25 Hepatitis C Antibody Non-reactive (NonReactive) 05/05/18 20:25 Influenza A (Rapid) Negative (Negative) 05/05/18 Unknown Influenza B (Rapid) Negative (Negative) 05/05/18 Unknown
[2018-05-07] MEDS: HEPARIN SUB-Q SCH ×2 (11:26→21:10)
[2018-05-07] MEDS: PEPCID PO SCH ×2 (11:26→21:10)
[2018-05-07] MEDS: LOPRESSOR PO SCH ×2 (11:57→21:19)
[2018-05-07] MEDS: SODIUM CHLORIDE FLUSH SYRINGE 10 ML IV SCH ×2 (11:59→21:18)
[2018-05-07] MEDS: DELTASONE PO SCH (12:19)
[2018-05-07] MEDS: ZITHROMAX PO SCH (12:19)
--- NOTE | 2018-05-07 14:12 | Progress Note ---
Assessment and Plan 1. ESRD: Continue hemodialysis three times a week, MWF schedule. 2. Hyperkalemia: K level is better. Low potassium diet. 3. Hypotension: Started on Midodrine. Monitor. 4. Shortness of breath: COPD exacerbation. 5. H/o systolic CHF. 6. HTN. 7. Elevated blood sugar: HbA1C normal. Subjective Date of service: 05/07/18 Interval history: Patient is somewhat better. Objective - Vital Signs Vital signs: Vital Signs - 12hr 05/07/18 05/07/18 05/07/18 05:31 11:48 11:57 Temperature 98.5 F 97.4 F L Pulse Rate 74 81 81 Respiratory 20 16 Rate Blood Pressure 76/50 78/42 Blood Pressure 117/94 [Right] O2 Sat by Pulse 95 94 Oximetry - General Appearance General appearance: well-developed, well-nourished, appears stated age, obese, other (not in distress) EENT: ATNC, PERRL, hearing intact, vision intact Neck: supple Respiratory: Present: Clear to Ascultation Cardiology: regular, S1S2, no murmurs Gastrointestinal: normoactive bowel sounds, no tenderness, no distended, obese Integumentary: no rash, warm and dry Neurologic: no focal deficit, no asterixis, alert and oriented x3 Musculoskeletal: other (no edema, left FA AVF) Psychiatric: cooperative - Lab 05/07/18 05:01 05/07/18 05:01 Most recent lab results Calcium 9.1 mg/dL (8.4-10.2) 05/07/18 05:01 Magnesium 2.70 mg/dL (1.7-2.3) H 05/05/18 15:17 Medications & Allergies - Medications Allergies/Adverse Reactions: Allergies No Known Allergies Allergy (Verified 12/18/13 07:27) Home Medications: Home Medications Medication Instructions Recorded Confirmed Last Taken Type Metoprolol [Lopressor TAB] 25 mg PO BID #60 tablet 04/10/17 05/06/18 Unknown Rx Adult One Daily Multivit Tab 1 tab PO QDAY 05/06/18 05/06/18 05/05/18 History Sucroferric Oxyhydroxide(Nf) 2 tab PO TID 05/06/18 05/06/18 05/05/18 History [Velphoro] Active Medications: Generic Name Dose Route Start Last Admin Trade Name Freq PRN Reason Stop Dose Admin Acetaminophen 650 mg 05/05/18 23:54 Tylenol PO Q4H PRN Pain MILD(1-3)/Fever >100.5/ABERNATHY Albuterol 2.5 mg 05/07/18 10:36 Proventil IH Q4HRT PRN Shortness Of Breath Azithromycin 500 mg 05/07/18 11:00 05/07/18 12:19 Zithromax PO 500 mg QDAY JOSE Administration Famotidine 10 mg 05/06/18 10:00 05/07/18 11:26 Pepcid PO 10 mg BID JOSE Administration Heparin Sodium (Porcine) 5,000 unit 05/06/18 10:00 05/07/18 11:26 Heparin SUB-Q 5,000 unit Q12HR JOSE Administration Hydromorphone HCl 0.5 mg 05/05/18 23:54 Dilaudid IV Q3H PRN Pain , Severe (7-10) Sodium Chloride 100 mls @ 999 mls/hr 05/06/18 10:00 Nacl 0.9% IV FRANSISCO PRN Hypotension Metoprolol Tartrate 25 mg 05/06/18 10:00 05/07/18 11:57 Lopressor PO Not Given BID [facility] Ondansetron HCl 4 mg 05/05/18 23:54 Zofran IV Q8H PRN Nausea And Vomiting Oxycodone/Acetaminophen 1 tab 05/05/18 23:54 05/06/18 09:41 Percocet 5/325 PO 1 tab Q6H PRN Administration Pain, Moderate (4-6) Prednisone 40 mg 05/07/18 11:00 05/07/18 12:19 Deltasone PO 40 mg QDAY JOSE Administration Sodium Chloride 10 ml 05/05/18 23:45 05/07/18 11:59 Sodium Chloride Flush Syringe 10 Ml IV 10 ml BID JOSE Administration Sodium Chloride 10 ml 05/05/18 23:54 Sodium Chloride Flush Syringe 10 Ml IV PRN PRN LINE FLUSH
[2018-05-07] MEDS: PROVENTIL IH PRN (18:25)
[2018-05-07] MEDS: PROAMATINE PO SCH (21:09)
[2018-05-07] MEDS ORDERED: NACL 0.9% 250ML 250 ML IV ONE (21:34)
[2018-05-08] MEDS ORDERED: NACL 0.9% 100 ML IV PRN (08:00)
[2018-05-08] MEDS: PROAMATINE PO SCH ×3 (08:14→19:53)
[2018-05-08] MEDS: VELPHORO PO SCH ×3 (08:15→19:50)
[2018-05-08 09:30] LABS: Albumin 4.1 g/dL (3.9-5); Calcium 9.2 mg/dL (8.4-10.2)
--- NOTE | 2018-05-08 10:01 | Progress Note ---
Assessment and Plan Assessment and plan: 62-year-old gentleman with past medical history of end-stage renal disease, tobacco use although quit about 3 months ago, COPD, hypertension presented to the hospital with complaints of cough, wheezing, shortness of breath. Patient reported compliance with medication, in the ED was felt to have COPD exa cerbation rather than heart failure based on evaluation. Was ALSO noted to have elevated Potassium requiring Dialysis. He was also somewhat hypotensive (1) COPD (chronic obstructive pulmonary disease) with exacerbation Current Visit: Yes Status: Chronic Qualifiers: Emphysema type: unspecified Plan to address problem: Cont bronchodilators, Steroids, Oral abx for possible underlying Bronchitis Received steroid in the ED Continue encouraging patient to maintain smoking cessation Leukocytosis likely reactive from Steroids and Cough. Monitor. No fever (2) Volume overload Current Visit: Yes Status: Acute Plan to address problem: Emergent HD for UF (3) ESRD (end stage renal disease) on dialysis Current Visit: Yes Status: Chronic Plan to address problem: Cont HD (4) HTN (hypertension) Current Visit: Hypotensive Give 250cc Fluids now on Midodrine. 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 15mins of counselling and patient verbali zed understanding (8)DVT prophylaxis Current Visit: No Status: Acute Plan to address problem: On Heparin and GI prophylaxis Plan discussed with patient.Patient showing some improvement but still with persistent cough, coupled with the low BP and now on midodrine, will watch for 24 hrs and anticipate discharge in am. Continue with ongoing Ortho work up outpatient History Interval history: Patient seen and examined this afternoon and no active distress,reports some improvement. still with cough, non productive. some wheezing still. Bilater knee pain, chronic, ongoing outpatient work up Hospitalist Physical - Physical exam Narrative exam: VITAL SIGNS: Reviewed. GENERAL: The patient appeared well nourished and normally developed. Morbidly obese. Vital signs as documented. HEAD: No signs of head trauma. EYES: Pupils are equal. Extraocular motions intact. EARS: Hearing grossly intact. MOUTH: Oropharynx is normal. Except some missing dentition NECK: No adenopathy, no JVD. CHEST: Chest with wheezing breath sounds bilaterally. No rales, or rhonchi. CARDIAC: Regular rate and rhythm. S1 and S2, without murmurs, gallops, or rubs. VASCULAR: No Edema. Peripheral pulses normal and equal in all extremities. ABDOMEN: Soft, without detectable tenderness. No sign of distention. No rebound or guarding, and no masses palpated. Bowel Sounds normal. MUSCULOSKELETAL: Good range of motion of all major joints. Extremities without clubbing, cyanosis or edema. NEUROLOGIC EXAM: Alert and oriented x 3. No focal sensory or strength deficits. Speech normal. Follows commands. PSYCHIATRIC: Mood normal. SKIN: No rash or lesions. - Constitutional Vitals: Temp Pulse Resp BP Pulse Ox 97.7 F 62 18 125/82 97 05/07/18 23:37 05/08/18 05:53 05/08/18 05:53 05/08/18 05:53 05/08/18 05:53 General appearance: Present: mild distress, well-nourished Results - Labs CBC & Chem 7: 05/07/18 05:01 05/08/18 05:15 Labs: Laboratory Last Values WBC 13.3 K/mm3 (4.5-11.0) H 05/07/18 05:01 RBC 3.57 M/mm3 (3.65-5.03) L 05/07/18 05:01 Hgb 13.5 gm/dl (11.8-15.2) 05/07/18 05:01 Hct 40.3 % (35.5-45.6) 05/07/18 05:01 MCV 113 fl (84-94) H 05/07/18 05:01 MCH 38 pg (28-32) H 05/07/18 05:01 MCHC 34 % (32-34) 05/07/18 05:01 RDW 13.5 % (13.2-15.2) 05/07/18 05:01 Plt Count 129 K/mm3 (140-440) L 05/07/18 05:01 Add Manual Diff Complete 05/06/18 04:53 Total Counted 100 05/06/18 04:53 Seg Neutrophils % Desulfurizer Operator 05/06/18 04:53 Seg Neuts % (Manual) 91.0 % (40.0-70.0) H 05/06/18 04:53 Band Neutrophils % 0 % 05/06/18 04:53 Lymphocytes % (Manual) 7.0 % (13.4-35.0) L 05/06/18 04:53 Reactive Lymphs % (Man) 0 % 05/06/18 04:53 Monocytes % (Manual) 2.0 % (0.0-7.3) 05/06/18 04:53 Eosinophils % (Manual) 0 % (0.0-4.3) 05/06/18 04:53 Basophils % (Manual) 0 % (0.0-1.8) 05/06/18 04:53 Metamyelocytes % 0 % 05/06/18 04:53 Myelocytes % 0 % 05/06/18 04:53 Promyelocytes % 0 % 05/06/18 04:53 Blast Cells % 0 % 05/06/18 04:53 Nucleated RBC % Not Reportable 05/06/18 04:53 Seg Neutrophils # Man 15.4 K/mm3 (1.8-7.7) H 05/06/18 04:53 Band Neutrophils # 0.0 K/mm3 05/06/18 04:53 Lymphocytes # (Manual) 1.2 K/mm3 (1.2-5.4) 05/06/18 04:53 Abs React Lymphs (Man) 0.0 K/mm3 05/06/18 04:53 Monocytes # (Manual) 0.3 K/mm3 (0.0-0.8) 05/06/18 04:53 Eosinophils # (Manual) 0.0 K/mm3 (0.0-0.4) 05/06/18 04:53 Basophils # (Manual) 0.0 K/mm3 (0.0-0.1) 05/06/18 04:53 Metamyelocytes # 0.0 K/mm3 05/06/18 04:53 Myelocytes # 0.0 K/mm3 05/06/18 04:53 Promyelocytes # 0.0 K/mm3 05/06/18 04:53 Blast Cells # 0.0 K/mm3 05/06/18 04:53 WBC Morphology Not Reportable 05/06/18 04:53 Hypersegmented Neuts Not Reportable 05/06/18 04:53 Hyposegmented Neuts Not Reportable 05/06/18 04:53 Hypogranular Neuts Not Reportable 05/06/18 04:53 Smudge Cells Not Reportable 05/06/18 04:53 Toxic Granulation Not Reportable 05/06/18 04:53 Toxic Vacuolation Not Reportable 05/06/18 04:53 Dohle Bodies Not Reportable 05/06/18 04:53 Pelger-Huet Anomaly Not Reportable 05/06/18 04:53 [place] Rods Not Reportable 05/06/18 04:53 Platelet Estimate Consistent w auto 05/06/18 04:53 Clumped Platelets Not Reportable 05/06/18 04:53 Plt Clumps, EDTA Not Reportable 05/06/18 04:53 Large Platelets Not Reportable 05/06/18 04:53 Giant Platelets Not Reportable 05/06/18 04:53 Platelet Satelliting Not Reportable 05/06/18 04:53 Plt Morphology Comment Not Reportable 05/06/18 04:53 RBC Morphology Not Reportable 05/06/18 04:53 Dimorphic RBCs Not Reportable 05/06/18 04:53 Polychromasia Not Reportable 05/06/18 04:53 Hypochromasia Not Reportable 05/06/18 04:53 Poikilocytosis Not Reportable 05/06/18 04:53 Anisocytosis Not Reportable 05/06/18 04:53 Microcytosis Not Reportable 05/06/18 04:53 Macrocytosis 1+ 05/06/18 04:53 Spherocytes Not Reportable 05/06/18 04:53 Pappenheimer Bodies Not Reportable 05/06/18 04:53 Sickle Cells Not Reportable 05/06/18 04:53 Target Cells Not Reportable 05/06/18 04:53 Tear Drop Cells Not Reportable 05/06/18 04:53 Ovalocytes Not Reportable 05/06/18 04:53 Helmet Cells Not Reportable 05/06/18 04:53 [place] Bodies Not Reportable 05/06/18 04:53 [place] Rings Not Reportable 05/06/18 04:53 [place] Cells Not Reportable 05/06/18 04:53 Bite Cells Not Reportable 05/06/18 04:53 Crenated Cell Not Reportable 05/06/18 04:53 Elliptocytes Not Reportable 05/06/18 04:53 Acanthocytes (Spur) Not Reportable 05/06/18 04:53 Rouleaux Not Reportable 05/06/18 04:53 Hemoglobin C Crystals Not Reportable 05/06/18 04:53 Schistocytes Not Reportable 05/06/18 04:53 Malaria parasites Not Reportable 05/06/18 04:53 Con Bodies Not Reportable 05/06/18 04:53 Hem Pathologist Commnt No 05/06/18 04:53 PT 12.3 Sec. (12.2-14.9) 05/05/18 14:41 INR 0.87 (0.87-1.13) 05/05/18 14:41 APTT 23.8 Sec. (24.2-36.6) L 05/05/18 14:41 Sodium 131 mmol/L (137-145) L 05/08/18 05:15 Potassium 5.7 mmol/L (3.6-5.0) H 05/08/18 05:15 Chloride 87.4 mmol/L (98-107) L 05/08/18 05:15 Carbon Dioxide 23 mmol/L (22-30) 05/08/18 05:15 Anion Gap 26 mmol/L 05/08/18 05:15 BUN 92 mg/dL (9-20) H 05/08/18 05:15 Creatinine 14.1 mg/dL (0.8-1.5) H 05/08/18 05:15 Estimated GFR 4 ml/min 05/08/18 05:15 BUN/Creatinine Ratio 7 % 05/08/18 05:15 Glucose 108 mg/dL (75-100) H 05/08/18 05:15 POC Glucose 156 (70-105) H 05/08/18 07:51 Hemoglobin A1c 4.8 % (4-6) 05/06/18 04:53 Calcium 9.2 mg/dL (8.4-10.2) 05/08/18 05:15 Magnesium 2.70 mg/dL (1.7-2.3) H 05/05/18 15:17 Total Bilirubin 0.30 mg/dL (0.1-1.2) 05/08/18 05:15 AST 15 units/L (5-40) 05/08/18 05:15 ALT 17 units/L (7-56) 05/08/18 05:15 Alkaline Phosphatase 184 units/L (35-129) H 05/08/18 05:15 Troponin T 0.097 ng/mL (0.00-0.029) H 05/05/18 15:17 NT-Pro-B Natriuret Pep 8070 pg/mL (0-900) H 05/05/18 15:17 Total Protein 7.6 g/dL (6.3-8.2) 05/08/18 05:15 Albumin 4.1 g/dL (3.9-5) 05/08/18 05:15 Albumin/Globulin Ratio 1.2 % 05/08/18 05:15 Plasma/Serum Alcohol < 0.01 % (0-0.07) 05/05/18 14:59 Hepatitis A IgM Ab Non-reactive (NonReactive) 05/05/18 20:25 Hep Bs Antigen Non-reactive (Negative) 05/05/18 20:25 Hep B Core IgM Ab Non-reactive (NonReactive) 05/05/18 20:25 Hepatitis C Antibody Non-reactive (NonReactive) 05/05/18 20:25 Influenza A (Rapid) Negative (Negative) 05/05/18 Unknown Influenza B (Rapid) Negative (Negative) 05/05/18 Unknown
--- NOTE | 2018-05-08 10:41 | Progress Note ---
Assessment and Plan 1. ESRD: Continue hemodialysis three times a week, MWF schedule. 2. Hyperkalemia: Low potassium diet. 3. Hypotension: Continue Midodrine. Monitor. 4. Shortness of breath: COPD exacerbation. 5. H/o systolic CHF. 6. HTN. 7. Elevated blood sugar: HbA1C normal. Subjective Date of service: 05/08/18 Interval history: Patient is feeling better. Objective - Vital Signs Vital signs: Vital Signs - 12hr 05/07/18 05/07/18 05/08/18 22:42 23:37 05:53 Temperature 97.7 F Pulse Rate 71 62 Respiratory 20 18 Rate Blood Pressure 112/63 125/82 O2 Sat by Pulse 95 95 97 Oximetry - General Appearance General appearance: well-developed, well-nourished, appears stated age, obese, other (not in distress) EENT: ATNC, PERRL, mucous membranes moist, hearing intact, vision intact Neck: supple Respiratory: Present: [place] Cardiology: regular, S1S2, no murmurs Gastrointestinal: normoactive bowel sounds, no tenderness, no distended Integumentary: no rash, warm and dry Neurologic: no focal deficit, no asterixis, alert and oriented x3 Musculoskeletal: other (no edema, left FA AVF) Psychiatric: cooperative - Lab 05/07/18 05:01 05/08/18 05:15 Most recent lab results Calcium 9.2 mg/dL (8.4-10.2) 05/08/18 05:15 Magnesium 2.70 mg/dL (1.7-2.3) H 05/05/18 15:17 Medications & Allergies - Medications Allergies/Adverse Reactions: Allergies No Known Allergies Allergy (Verified 12/18/13 07:27) Home Medications: Home Medications Medication Instructions Recorded Confirmed Last Taken Type Metoprolol [Lopressor TAB] 25 mg PO BID #60 tablet 04/10/17 05/06/18 Unknown Rx Adult One Daily Multivit Tab 1 tab PO QDAY 05/06/18 05/06/18 05/05/18 History Sucroferric Oxyhydroxide(Nf) 2 tab PO TID 05/06/18 05/06/18 05/05/18 History [Velphoro] Active Medications: Generic Name Dose Route Start Last Admin Trade Name Freq PRN Reason Stop Dose Admin Acetaminophen 650 mg 05/05/18 23:54 Tylenol PO Q4H PRN Pain MILD(1-3)/Fever >100.5/ABERNATHY Albuterol 2.5 mg 05/07/18 10:36 05/07/18 18:25 Proventil IH 2.5 mg Q4HRT PRN Administration Shortness Of Breath Azithromycin 500 mg 05/07/18 11:00 05/07/18 12:19 Zithromax PO 500 mg QDAY JOSE Administration Famotidine 10 mg 05/06/18 10:00 05/07/18 21:10 Pepcid PO 10 mg BID JOSE Administration Heparin Sodium (Porcine) 5,000 unit 05/06/18 10:00 05/07/18 21:10 Heparin SUB-Q 5,000 unit Q12HR JOSE Administration Hydromorphone HCl 0.5 mg 05/05/18 23:54 Dilaudid IV Q3H PRN Pain , Severe (7-10) Sodium Chloride 100 mls @ 999 mls/hr 05/08/18 08:00 Nacl 0.9% IV FRANSISCO PRN Hypotension Metoprolol Tartrate 25 mg 05/06/18 10:00 05/07/18 21:19 Lopressor PO Not Given BID [facility] Midodrine 10 mg 05/07/18 20:00 05/08/18 08:14 Proamatine PO 10 mg TID JOSE Administration Ondansetron HCl 4 mg 05/05/18 23:54 Zofran IV Q8H PRN Nausea And Vomiting Oxycodone/Acetaminophen 1 tab 05/05/18 23:54 05/06/18 09:41 Percocet 5/325 PO 1 tab Q6H PRN Administration Pain, Moderate (4-6) Prednisone 40 mg 05/07/18 11:00 05/07/18 12:19 Deltasone PO 40 mg QDAY JOSE Administration Sodium Chloride 10 ml 05/05/18 23:45 05/07/18 21:18 Sodium Chloride Flush Syringe 10 Ml IV 10 ml BID JOSE Administration Sodium Chloride 10 ml 05/05/18 23:54 Sodium Chloride Flush Syringe 10 Ml IV PRN PRN LINE FLUSH
[2018-05-08] MEDS: DELTASONE PO SCH (11:07)
[2018-05-08] MEDS: ZITHROMAX PO SCH (11:07)
[2018-05-08] MEDS: PEPCID PO SCH ×2 (11:07→22:34)
[2018-05-08] MEDS: SODIUM CHLORIDE FLUSH SYRINGE 10 ML IV SCH ×2 (11:08→22:34)
[2018-05-08] MEDS: LOPRESSOR PO SCH ×2 (11:28→21:45)
[2018-05-08] MEDS: PROVENTIL IH PRN (11:31)
[2018-05-08] MEDS: HEPARIN SUB-Q SCH ×2 (12:57→22:34)
[2018-05-09] MEDS: PROAMATINE PO SCH (08:00)
[2018-05-09] MEDS: VELPHORO PO SCH ×3 (08:00→11:11)
[2018-05-09] MEDS: SODIUM CHLORIDE FLUSH SYRINGE 10 ML IV SCH (09:07)
[2018-05-09] MEDS: DELTASONE PO SCH (09:08)
[2018-05-09] MEDS: ZITHROMAX PO SCH (09:08)
[2018-05-09] MEDS: PEPCID PO SCH (09:08)
[2018-05-09] MEDS: LOPRESSOR PO SCH (09:09)
[2018-05-09] MEDS: HEPARIN SUB-Q SCH (09:10)
--- NOTE | 2018-05-09 09:10 | Progress Note ---
Assessment and Plan 1. ESRD: Continue hemodialysis three times a week, MWF schedule. 2. Hyperkalemia: Low potassium diet. 3. Hypotension: Continue Midodrine. Monitor. 4. Shortness of breath: COPD exacerbation. 5. H/o systolic CHF. 6. HTN. 7. Elevated blood sugar: HbA1C normal. Subjective Date of service: 05/09/18 Interval history: Patient is feeling better. Objective - Vital Signs Vital signs: Vital Signs - 12hr 05/08/18 05/08/18 05/08/18 21:42 21:44 21:45 Temperature Pulse Rate 84 Pulse Rate [ Left Radial] Respiratory Rate Blood Pressure 123/70 120/73 O2 Sat by Pulse 94 Oximetry 05/08/18 05/09/18 22:00 06:55 Temperature 97.7 F Pulse Rate 58 L Pulse Rate [ 84 Left Radial] Respiratory 20 18 Rate Blood Pressure 96/46 O2 Sat by Pulse 88 Oximetry - General Appearance General appearance: well-developed, well-nourished, appears stated age, obese, other (not in distress) EENT: ATNC, PERRL, mucous membranes moist, hearing intact, vision intact Neck: supple Respiratory: Present: Clear to Ascultation Cardiology: regular, S1S2, no murmurs Gastrointestinal: normoactive bowel sounds, no tenderness, no distended, obese Integumentary: no rash, warm and dry Neurologic: no focal deficit, no asterixis, alert and oriented x3 Musculoskeletal: other (no edema, left FA AVF) Psychiatric: cooperative - Lab 05/07/18 05:01 05/08/18 05:15 Most recent lab results Calcium 9.2 mg/dL (8.4-10.2) 05/08/18 05:15 Magnesium 2.70 mg/dL (1.7-2.3) H 05/05/18 15:17 Medications & Allergies - Medications Allergies/Adverse Reactions: Allergies No Known Allergies Allergy (Verified 12/18/13 07:27) Home Medications: Home Medications Medication Instructions Recorded Confirmed Last Taken Type Adult One Daily Multivit Tab 1 tab PO QDAY 05/06/18 05/06/18 05/05/18 History Sucroferric Oxyhydroxide(Nf) 2 tab PO TID 05/06/18 05/06/18 05/05/18 History [Velphoro (Nf)] ALBUTEROL NEB's [Proventil 0.083% 2.5 mg IH Q4HRT PRN #90 nebu 05/09/18 Unknown Rx NEBS] Azithromycin [Zithromax TAB] 250 mg PO QDAY #3 tablet 05/09/18 Unknown Rx Midodrine [Proamatine] 10 mg PO TID #90 tablet 05/09/18 Unknown Rx Prednisone [predniSONE 5 mg (6-Day 5 mg PO .TAPER #1 tab.ds.pk 05/09/18 Unknown Rx Pack, 21 Tabs)] Active Medications: Generic Name Dose Route Start Last Admin Trade Name Freq PRN Reason Stop Dose Admin Acetaminophen 650 mg 05/05/18 23:54 Tylenol PO Q4H PRN Pain MILD(1-3)/Fever >100.5/ABERNATHY Albuterol 2.5 mg 05/07/18 10:36 05/08/18 11:31 Proventil IH 2.5 mg Q4HRT PRN Administration Shortness Of Breath Azithromycin 500 mg 05/07/18 11:00 05/08/18 11:07 Zithromax PO 500 mg QDAY JOSE Administration Famotidine 10 mg 05/06/18 10:00 05/08/18 22:34 Pepcid PO 10 mg BID JOSE Administration Heparin Sodium (Porcine) 5,000 unit 05/06/18 10:00 05/08/18 22:34 Heparin SUB-Q 5,000 unit Q12HR JOSE Administration Hydromorphone HCl 0.5 mg 05/05/18 23:54 Dilaudid IV Q3H PRN Pain , Severe (7-10) Sodium Chloride 100 mls @ 999 mls/hr 05/08/18 08:00 Nacl 0.9% IV FRANSISCO PRN Hypotension Metoprolol Tartrate 25 mg 05/06/18 10:00 05/08/18 21:45 Lopressor PO Not Given BID JOSE Midodrine 10 mg 05/07/18 20:00 05/08/18 19:53 Proamatine PO 10 mg TID JOSE Administration Ondansetron HCl 4 mg 05/05/18 23:54 Zofran IV Q8H PRN Nausea And Vomiting Oxycodone/Acetaminophen 1 tab 05/05/18 23:54 05/06/18 09:41 Percocet 5/325 PO 1 tab Q6H PRN Administration Pain, Moderate (4-6) Prednisone 40 mg 05/07/18 11:00 05/08/18 11:07 Deltasone PO 40 mg QDAY JOSE Administration Sodium Chloride 10 ml 05/05/18 23:45 05/08/18 22:34 Sodium Chloride Flush Syringe 10 Ml IV 10 ml BID JOSE Administration Sodium Chloride 10 ml 05/05/18 23:54 Sodium Chloride Flush Syringe 10 Ml IV PRN PRN LINE FLUSH
--- NOTE | 2018-05-09 09:31 | Discharge Summary ---
Providers - Providers Date of Admission: 05/05/18 16:22 Attending physician: MARSHA PARSONS MD 05/05/18 14:48 Consult to Physician [CONS] Urgent Comment: Consulting Provider: FELICIA VÁSQUEZ Physician Instructions: Reason For Exam: resp distress Primary care physician: FOUNDATION ASSISTANT Hospitalization Reason for admission: copd with exacerbation Condition: Stable Hospital course: 62-year-old gentleman with past medical history of end-stage renal disease, tobacco use although quit about 3 months ago, COPD, hypertension presented to the hospital with complaints of cough, wheezing, shortness of breath. Patient reported compliance with medication, in the ED was felt to have COPD exacerbation rather than heart failure based on evaluation. Was ALSO noted to have elevated Potassium requiring Dialysis. He was also somewhat hypotensive (1) COPD (chronic obstructive pulmonary disease) with exacerbation treated with bronchodilators, Steroids, Oral abx for possible underlying Bronchitis Received steroid in the ED Continue encouraging patient to maintain smoking cessation Leukocytosis likely reactive from Steroids and Cough. No fever (2) Volume overload Current Visit: Yes Status: Acute Plan to address problem: Emergent HD for UF and continued while in house with senior internet sales consultant following (3) ESRD (end stage renal disease) on dialysis Current Visit: Yes Status: Chronic Plan to address problem: Cont HD (4) HTN (hypertension) BP meds discontinued per Nephrology recommendation and patient advised to continue Midodrine. 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 15mins of counselling and patient verbalized understanding Disposition: DC-01 TO HOME OR SELFCARE Time spent for discharge: 35 mins Core Measure Documentation - Palliative Care Palliative Care/ Comfort Measures: Not Applicable - Core Measures Any of the following diagnoses?: none Exam - Physical Exam Narrative exam: VITAL SIGNS: Reviewed. GENERAL: The patient appeared well nourished and normally developed. Morbidly obese. Vital signs as documented. HEAD: No signs of head trauma. EYES: Pupils are equal. Extraocular motions intact. EARS: Hearing grossly intact. MOUTH: Oropharynx is normal. Except some missing dentition NECK: No adenopathy, no JVD. CHEST: Chest with wheezing breath sounds bilaterally. No rales, or rhonchi. CARDIAC: Regular rate and rhythm. S1 and S2, without murmurs, gallops, or rubs. VASCULAR: No Edema. Peripheral pulses normal and equal in all extremities. ABDOMEN: Soft, without detectable tenderness. No sign of distention. No rebound or guarding, and no masses palpated. Bowel Sounds normal. MUSCULOSKELETAL: Good range of motion of all major joints. Extremities without clubbing, cyanosis or edema. NEUROLOGIC EXAM: Alert and oriented x 3. No focal sensory or strength deficits. Speech normal. Follows commands. PSYCHIATRIC: Mood normal. SKIN: No rash or lesions. - Constitutional Vitals: Temp Pulse Resp BP Pulse Ox 97.7 F 58 L 18 96/46 88 05/09/18 06:55 05/09/18 06:55 05/09/18 06:55 05/09/18 06:55 05/09/18 06:55 Plan Activity: advance as tolerated, fall precautions Diet: renal Special Instructions: record daily weights, record daily BP diary, smoking cessation Additional Instructions: follow with Ekg Technician and dialysis center Follow up with: PRIMARY CARE, [Primary Care Provider] - 3-5 Days PAOLA NUNO MD [Staff Physician] - 7 Days FELICIA VÁSQUEZ MD [Staff Physician] - 7 Days Prescriptions: Prednisone [predniSONE 5 mg (6-Day Pack, 21 Tabs)] 5 mg PO .TAPER #1 tab.ds.pk Midodrine [Proamatine] 10 mg PO TID #90 tablet ALBUTEROL NEB's [Proventil 0.083% NEBS] 2.5 mg IH Q4HRT PRN #90 nebu PRN Reason: Shortness Of Breath Azithromycin [Zithromax TAB] 250 mg PO QDAY #3 tablet Other Discharge Orders: Nebulizer (Amb) Location: None Selected
[2018-05-09 11:56] VITALS: BP 104/66
== END 2018-05-09 12:00 | disposition home or self-care (01) | DRG 291 ==
LOC: ED 13:47 → 4A 16:22 → 3A 05-06 15:46
PROVIDERS: ADMIT Internal Medicine; ATTEND Internal Medicine
PROC: 5A1D70Z Performance of Urinary Filtration, Intermittent, Less than 6 Hours Per Day (ICD-10-PCS; principal; 2018-05-05)
PROC: 5A1D70Z Performance of Urinary Filtration, Intermittent, Less than 6 Hours Per Day (ICD-10-PCS; 2018-05-06)
PROC: 5A1D70Z Performance of Urinary Filtration, Intermittent, Less than 6 Hours Per Day (ICD-10-PCS; 2018-05-08)
DX: I13.2 Hypertensive heart and chronic kidney disease with heart failure and with stage 5 chronic kidney disease, or end stage renal disease (principal); I50.23 Acute on chronic systolic (congestive) heart failure; N18.6 End stage renal disease; J44.1 Chronic obstructive pulmonary disease with (acute) exacerbation; I50.20 Unspecified systolic (congestive) heart failure; I42.8 Other cardiomyopathies; I95.9 Hypotension, unspecified; E87.5 Hyperkalemia; E87.70 Fluid overload, unspecified; D72.829 Elevated white blood cell count, unspecified; T38.0X5A Adverse effect of glucocorticoids and synthetic analogues, initial encounter; E11.22 Type 2 diabetes mellitus with diabetic chronic kidney disease; M19.90 Unspecified osteoarthritis, unspecified site; M10.9 Gout, unspecified; Y92.89 Other specified places as the place of occurrence of the external cause; Z87.891 Personal history of nicotine dependence; Z99.2 Dependence on renal dialysis; Z79.899 Other long term (current) drug therapy; Z90.49 Acquired absence of other specified parts of digestive tract; Z82.49 Family history of ischemic heart disease and other diseases of the circulatory system
CPT/HCPCS: 36415; 71045; 80048; 80053; 80074; 80320; 82533; 82962; 83036; 83735; 83880; 84484; 85007; 85025; 85027; 85610; 85730; 87400; 93005; 93010; 94640; 94760; 96365; 96375; 99291; G0378; G0480; J0610; J1644; J1815; J1940; J1956; J2930; J3475; J7030; J7050; J7512

== ENCOUNTER 2020-08-29 18:01 | Inpatient (IN) | payer MEDICARE ==
[2020-08-29] MEDS ORDERED: methylPREDNISolone Sod Succinate 125 MG/2 ML INJ IV ONE (21:34)
[2020-08-29] MEDS ORDERED: IPRATROPIUM 0.02% NEBU 2.5 ML IH ONE ×2 (21:34→23:53)
[2020-08-29] MEDS ORDERED: ALBUTEROL 2.5 MG/3 ML NEBU IH ONE ×2 (21:34→23:54)
--- NOTE | 2020-08-29 21:40 | Emergency Department Report ---
ED Shortness of Breath HPI - General Chief Complaint: Dyspnea/Respdistress Stated Complaint: COPD/LIP SWELLING Time Seen by Provider: 08/29/20 21:29 Source: patient Mode of arrival: Wheelchair Limitations: No Limitations - History of Present Illness Initial Comments: Patient is 65 years old male with history of end-stage renal disease on hemodialysis, congestive heart failure, COPD, hypertension and diabetes. Patient presented to the ER complaining of shortness of breath and difficulty breathing for the last 5 days. Patient also stated that he has been coughing a lot with greenish sputum. Patient denied any fever or chills. No nausea or vomiting. Patient stated that he is compliant with his dialysis and his last session was Sunday. MD Complaint: shortness of breath, cough -: days(s) Known History Of: COPD Context: recent URI - Related Data Home Medications Medication Instructions Recorded Confirmed Last Taken carvediloL [Coreg] 3.125 mg PO BID 04/22/19 04/22/19 Unknown Previous Rx's Medication Instructions Recorded Last Taken Type Azithromycin [Zithromax Z-JOSIE] 500 mg PO DAILY #10 tab 04/22/19 Unknown Rx Budesonide/Formoterol Fumarate 10.2 gm IH BID #1 hfa.aer.ad 04/22/19 Unknown Rx [Symbicort 160-4.5 Mcg Inhaler] Ipratropium/Albuterol Sulfate 1 ampul IH Q6HRT #30 ampul.neb 04/22/19 Unknown Rx [DUONEB *Not for PRN Use*] Prednisone [predniSONE 10 mg 10 mg PO .TAPER #1 tab.ds.pk 04/22/19 Unknown Rx (6-Day Pack, 21 Tabs)] guaiFENesin ER [Mucinex ER] 600 mg PO BID #20 tablet 04/24/19 Unknown Rx Allergies Allergy/AdvReac Type Severity Reaction Status Date / Time No Known Allergies Allergy Verified 08/29/20 21:45 ED Review of Systems ROS: Stated complaint: COPD/LIP SWELLING Other details as noted in HPI Comment: All other systems reviewed and negative Constitutional: denies: chills, fever Respiratory: cough, orthopnea, shortness of breath, SOB with exertion, SOB at rest, wheezing Cardiovascular: denies: chest pain, palpitations Gastrointestinal: denies: abdominal pain, nausea, vomiting, diarrhea, constipation, hematemesis, hematochezia Musculoskeletal: denies: back pain Neurological: denies: headache, weakness, numbness, paresthesias, confusion ED Past Medical Hx - Past Medical History Previous Medical History?: Yes Hx Hypertension: Yes Hx Heart Attack/AMI: No Hx Congestive Heart Failure: Yes Hx Diabetes: Yes Hx Deep Vein Thrombosis: No Hx Pulmonary Embolism: No Hx Liver Disease: No Hx Renal Disease: Yes (dialysis m, w, f) Hx Arthritis: Yes Hx Kidney Stones: No Hx Asthma: No Hx COPD: Yes Hx Tuberculosis: No Hx HIV: No Additional medical history: gout - Surgical History Past Surgical History?: Yes Hx Coronary Stent: No Hx Pacemaker: No Hx Internal Defibrillator: No Hx Appendectomy: Yes Additional Surgical History: fistula left forearm - Social History Smoking Status: Current Every Day Smoker - Medications Home Medications: Home Medications Medication Instructions Recorded Confirmed Last Taken Type Azithromycin [Zithromax Z-JOSIE] 500 mg PO DAILY #10 tab 04/22/19 Unknown Rx Budesonide/Formoterol Fumarate 10.2 gm IH BID #1 hfa.aer.ad 04/22/19 Unknown Rx [Symbicort 160-4.5 Mcg Inhaler] Ipratropium/Albuterol Sulfate 1 ampul IH Q6HRT #30 ampul.neb 04/22/19 Unknown Rx [DUONEB *Not for PRN Use*] Prednisone [predniSONE 10 mg 10 mg PO .TAPER #1 tab.ds.pk 04/22/19 Unknown Rx (6-Day Pack, 21 Tabs)] carvediloL [Coreg] 3.125 mg PO BID 04/22/19 04/22/19 Unknown History guaiFENesin ER [Mucinex ER] 600 mg PO BID #20 tablet 04/24/19 Unknown Rx ED Physical Exam - General Limitations: No Limitations General appearance: alert, in distress - Head Head exam: Present: atraumatic, normocephalic, normal inspection - Eye Eye exam: Present: normal appearance, PERRL - ENT ENT exam: Present: normal exam, normal orophraynx, mucous membranes moist - Neck Neck exam: Present: normal inspection, full ROM. Absent: tenderness, meningismus - Respiratory Respiratory exam: Present: respiratory distress, wheezes, rales, rhonchi, decreased breath sounds, prolonged expiratory. Absent: stridor, chest wall tenderness, accessory muscle use - Cardiovascular Cardiovascular Exam: Present: regular rate, normal rhythm, normal heart sounds - GI/Abdominal GI/Abdominal exam: Present: soft, normal bowel sounds. Absent: distended, tenderness, guarding, rebound, rigid, mass, bruit, pulsatile mass, hernia - Extremities Exam Extremities exam: Present: normal inspection, full ROM, normal capillary refill - Back Exam Back exam: Present: normal inspection, full ROM. Absent: CVA tenderness (R), CVA tenderness (L) - Neurological Exam Neurological exam: Present: alert, oriented X3, CN II-XII intact. Absent: motor sensory deficit - Psychiatric Psychiatric exam: Present: normal mood - Skin Skin exam: Present: warm, intact, normal color ED Course Vital Signs 08/29/20 08/29/20 18:13 22:08 Temperature 98.8 F Pulse Rate 84 76 Respiratory 15 18 Rate Blood Pressure 119/70 Blood Pressure 123/64 [Right] O2 Sat by Pulse 91 Oximetry ED Medical Decision Making - Lab Data Result diagrams: 08/29/20 21:39 08/29/20 21:39 - EKG Data -: EKG Interpreted by Id EKG shows normal: sinus rhythm Rate: normal - EKG Data Interpretation: no acute changes - Radiology Data Radiology results: report reviewed - Medical Decision Making Patient is 65 years old male with history of end-stage renal disease on hemodialysis, congestive heart failure, COPD, hypertension and diabetes. Patient presented to the ER complaining of shortness of breath and difficulty breathing for the last 5 days. Patient also stated that he has been coughing a lot with greenish sputum. Patient denied any fever or chills. No nausea or vomiting. Patient stated that he is compliant with his dialysis and his last session was Sunday. Patient received albuterol, Atrovent and Solu-Medrol. Labs showed a potassium of 6.6, BUN of 99 and a creatinine of 13.6. Patient immediately received a calcium chloride, dextrose, insulin. I discussed the patient with Dr. Beyer, sizer hand for the patient, he advised to admit the patient to the hospital for emergency dialysis. I discussed the patient with Dr. Veronica, he agreed to admit the patient to medical service for further management. Critical Care Time: Yes Critical care time in (mins) excluding proc time.: 30 Critical care attestation.: If time is entered above; I have spent that time in minutes in the direct care of this critically ill patient, excluding procedure time. ED Disposition Clinical Impression: Acute hyperkalemia, ESRD needing dialysis, Acute exacerbation of COPD with asthma Disposition: OP ADMIT IP TO THIS HOSP Is pt being admited?: Yes Condition: Stable Instructions: Asthma (ED) Referrals: PRIMARY CARE, [Primary Care Provider] - 3-5 Days
[2020-08-29 21:54] LABS: Hematocrit 40.6 % (35.5-45.6); Hemoglobin 13.7 gm/dl (11.8-15.2); Mean Corpuscular HGB Conc 34 % (32-34); Red Cell Distribution Width 14.4 % (13.2-15.2)
[2020-08-29 21:57] LABS: Mean Corpuscular Volume 113 fl (84-94); Platelet Count 151 K/mm3 (140-440)
[2020-08-29 22:04] LABS: INR 0.97 (0.87-1.13); Partial Thromboplastin Time 23.6 Sec. (24.2-36.6)
--- NOTE | 2020-08-29 22:20 | XRay Report ---
CHEST 1 VIEW 08/29/2020 9:35 PM INDICATION / CLINICAL INFORMATION: Dyspnea. COMPARISON: 04/21/2019 FINDINGS: SUPPORT DEVICES: None. HEART / MEDIASTINUM: Moderate cardiomegaly. LUNGS / PLEURA: No significant pulmonary or pleural abnormality. No pneumothorax. ADDITIONAL FINDINGS: No significant additional findings. IMPRESSION: 1. Cardiomegaly without CHF Signer Name: Edwin Gonzalez MD Signed: 08/29/2020 10:16 PM Workstation Name: [id number]
[2020-08-29 22:22] LABS: Alanine Aminotransferase 25 units/L (7-56); Albumin 3.9 g/dL (3.9-5); Blood Urea Nitrogen 99 mg/dL (9-20); Calcium 9.5 mg/dL (8.4-10.2); Hemolysis Index 155
[2020-08-29 22:28] LABS: Total Cells Counted 100
[2020-08-29 22:29] LABS: Anisocytosis 1+; Hypochromasia 1+
[2020-08-29 22:30] LABS: Toxic Granulation 2+; Toxic Vacuolation Few
[2020-08-29 22:31] LABS: Platelet Estimate Consistent w Auto
[2020-08-29 22:38] LABS: BUN/Creatinine Ratio 7; Bilirubin,Direct < 0.2 mg/dL (0-0.2)
[2020-08-29] MEDS ORDERED: INSULIN REGULAR, HUMAN 100 UNITS/1 ML IV ONE (23:35)
[2020-08-29] MEDS ORDERED: CALCIUM CHLORIDE 1,000 MG in SODIUM CHLORIDE 0.9% 100 ML IV ONE (23:35)
[2020-08-29] MEDS ORDERED: DEXTROSE 50% IN WATER (25GM) 50 ML SYRINGE IV ONE (23:35)
[2020-08-29] MEDS ORDERED: SODIUM CHLORIDE 0.9% 100 ML IV PRN (23:44)
[2020-08-29] MEDS ORDERED: HEPARIN 10,000 UNITS/10 ML VIAL IV PRN (23:44)
--- NOTE | 2020-08-29 23:49 | Event Note ---
Date: 08/29/20 Presented with sob and hyperkalemia. Stat HD orders placed. Spoke with nursing pattern grader supervisor.
[2020-08-30] MEDS ORDERED: DEXTROSE 50% IN WATER (25GM) 50 ML SYRINGE IV PRN (00:19)
[2020-08-30] MEDS ORDERED: MAGNESIUM HYDROXIDE (MOM) ORAL LIQD UDC PO PRN (00:19)
[2020-08-30] MEDS ORDERED: MORPHINE 2 MG/1 ML INJ IV PRN ×2 (00:19)
[2020-08-30] MEDS ORDERED: ACETAMINOPHEN 325 MG TAB PO PRN (00:19)
[2020-08-30] MEDS ORDERED: ONDANSETRON 4 MG/2 ML INJ IV PRN (00:19)
--- NOTE | 2020-08-30 00:35 | History and Physical Report ---
History of Present Illness Date of examination: 08/30/20 Date of admission: 08/30/20 00:00 Chief complaint: Shortness of Breath Cough History of present illness: 65-year-old -Martiniquais male with known history of end-stage renal disease on dialysis on Mondays, Wednesdays and Fridays, congestive heart failure, COPD, hypertension and diabetes mellitus presented in the emergency room today complaining of shortness of breath which has been ongoing for the past 5 days. He has also been having some cough productive of some greenish sputum. He denies any chest pain, no fever or chills, no nausea vomiting, no abdominal pain. Patient denies any sick contacts and no recent travel. Denies any contact with anyone with COVID-19. Patient also states that he has had some mild swelling of his upper lip. Denies any tongue swelling and denies any difficulty swallowing. Patient indicates he has been compliant with his dialysis. Upon arrival in the emergency room he was found to be wheezing and patient was given some nebulizing treatments. Work-up in the emergency room today reveals hyperkalemia of 6.6, elevated BUN and creatinine of 99 and 13.6 respectively, slightly elevated troponin of 0.07, leukocytosis of 13.5. Chest x-ray reveals cardiomegaly without CHF. Patient has had insulin,glucose, calcium chloride in the emergency room. Patient is being admitted with end-stage renal disease needing dialysis. Dr. Beyer has been consulted by the ER physician patient will be scheduled for immediate dialysis Past History Past Medical History: COPD, diabetes, dialysis, ESRD, hypertension Past Surgical History: Other (Left arm A-V fistula placement) Social history: smoking (Current daily smoker) Family history: no significant family history Medications and Allergies Allergies Allergy/AdvReac Type Severity Reaction Status Date / Time No Known Allergies Allergy Verified 08/29/20 21:45 Home Medications Medication Instructions Recorded Confirmed Last Taken Type Azithromycin [Zithromax Z-JOSIE] 500 mg PO DAILY #10 tab 04/22/19 Unknown Rx Budesonide/Formoterol Fumarate 10.2 gm IH BID #1 hfa.aer.ad 04/22/19 Unknown Rx [Symbicort 160-4.5 Mcg Inhaler] Ipratropium/Albuterol Sulfate 1 ampul IH Q6HRT #30 ampul.neb 04/22/19 Unknown Rx [DUONEB *Not for PRN Use*] Prednisone [predniSONE 10 mg 10 mg PO .TAPER #1 tab.ds.pk 04/22/19 Unknown Rx (6-Day Pack, 21 Tabs)] carvediloL [Coreg] 3.125 mg PO BID 04/22/19 04/22/19 Unknown History guaiFENesin ER [Mucinex ER] 600 mg PO BID #20 tablet 04/24/19 Unknown Rx Active Meds: Active Medications Acetaminophen (Acetaminophen 325 Mg Tab) 650 mg PO Q4H PRN PRN Reason: Pain MILD(1-3)/Fever >100.5/ABERNATHY Dextrose (Dextrose 50% In Water (25gm) 50 Ml Syringe) 50 ml IV Q30MIN PRN; Protocol PRN Reason: Hypoglycemia Dextrose (Dextrose 50% In Water (25gm) 50 Ml Syringe) 50 ml IV Q30MIN PRN; Protocol PRN Reason: Hypoglycemia Heparin Sodium (Porcine) (Heparin 10,000 Units/10 Ml Vial) 2,000 unit IV FRANSISCO PRN PRN Reason: hemodialysis Sodium Chloride (Nacl 0.9%) 100 mls @ 999 mls/hr IV FRANSISCO PRN PRN Reason: Hypotension Insulin Human Lispro (Insulin Lispro 100 Unit/Ml) 0 unit SUB-Q ACHS JOSE; Protocol Magnesium Hydroxide (Magnesium Hydroxide (Mom) Oral Liqd Udc) 30 ml PO Q4H PRN PRN Reason: Constipation Morphine Sulfate (Morphine 2 Mg/1 Ml Inj) 2 mg IV Q4H PRN PRN Reason: Pain, Moderate (4-6) Morphine Sulfate (Morphine 2 Mg/1 Ml Inj) 2 mg IV Q5MIN PRN PRN Reason: Chest Pain unrelieved by NTG Ondansetron HCl (Ondansetron 4 Mg/2 Ml Inj) 4 mg IV Q8H PRN PRN Reason: Nausea And Vomiting Sodium Chloride (Sodium Chloride 0.9% 10 Ml Flush Syringe) 10 ml IV BID JOSE Sodium Chloride (Sodium Chloride 0.9% 10 Ml Flush Syringe) 10 ml IV PRN PRN PRN Reason: LINE FLUSH Review of Systems Constitutional: no fever, no chills Ears, nose, mouth and throat: no nasal congestion, no sore throat Cardiovascular: no chest pain, no palpitations Respiratory: cough with sputum, shortness of breath Gastrointestinal: no abdominal pain, no nausea, no vomiting, no diarrhea Genitourinary Male: no dysuria, no hematuria, no flank pain Musculoskeletal: no neck pain, no low back pain Integumentary: no rash, no pruritis Neurological: no headaches, no confusion Psychiatric: no anxiety, no depression Endocrine: no polyphagia, no polydipsia, no polyuria, no nocturia Exam - Constitutional Vitals: Temp Pulse Resp BP Pulse Ox 98.8 F 74 20 118/67 91 08/29/20 18:13 08/30/20 00:29 08/30/20 00:29 08/30/20 00:17 08/30/20 00:17 General appearance: Present: no acute distress, well-nourished - EENT Eyes: Present: PERRL, EOM intact. Absent: scleral icterus ENT: hearing intact, clear oral mucosa, dentition normal, other (Swelling of the upper lip. No obvious tongue swelling.) - Neck Neck: Present: supple, normal ROM - Respiratory Respiratory effort: normal Respiratory: bilateral: wheezing - Cardiovascular Rhythm: regular Heart Sounds: Present: S1 & S2. Absent: gallop, systolic murmur, diastolic murmur, rub, click - Extremities Extremities: no ischemia, pulses intact, pulses symmetrical, No edema, normal temperature, normal color, Full ROM Peripheral Pulses: within normal limits - Abdominal General gastrointestinal: Present: soft, non-tender, non-distended, normal bowel sounds. Absent: mass - Integumentary Integumentary: Present: clear, warm, dry, normal turgor. Absent: rash - Musculoskeletal Musculoskeletal: strength equal bilaterally, other (Left forearm AV fistula with palpable thrill) - Psychiatric Psychiatric: appropriate mood/affect, intact judgment & insight, memory intact, cooperative - Neurologic Neurologic: CNII-XII intact, no focal deficits, moves all extremities HEART Score - HEART Score Troponin: Troponin T 0.070 ng/mL (0.00-0.029) H 08/29/20 21:39 Results - Labs CBC & Chem 7: 08/29/20 21:39 08/29/20 21:39 Labs: Abnormal lab results 08/29/20 08/29/20 08/29/20 Range/Units 21:39 21:39 21:39 WBC 13.5 H (4.5-11.0) K/mm3 RBC 3.60 L (3.65-5.03) M/mm3 MCV 113 H (84-94) fl MCH 38 H (28-32) pg Seg Neuts % (Manual) 91.0 H (40.0-70.0) % Lymphocytes % (Manual) 8.0 L (13.4-35.0) % Seg Neutrophils # Man 12.3 H (1.8-7.7) K/mm3 Lymphocytes # (Manual) 1.1 L (1.2-5.4) K/mm3 APTT 23.6 L (24.2-36.6) Sec. Potassium 6.6 H* (3.6-5.0) mmol/L Carbon Dioxide 17 L (22-30) mmol/L BUN 99 H (9-20) mg/dL Creatinine 13.6 H (0.8-1.3) mg/dL Glucose 137 H (75-100) mg/dL Troponin T 0.070 H (0.00-0.029) ng/mL Assessment and Plan - Patient Problems (1) ESRD needing dialysis Current Visit: Yes Status: Acute Plan to address problem: Consult has been placed to nephrology for dialysis. has been consulted for immediate dialysis. (2) Acute hyperkalemia Current Visit: Yes Status: Acute Plan to address problem: Patient has had insulin and glucose, calcium chloride emergency room. He is already scheduled for dialysis. Will monitor potassium level and also monitor EKG. (3) COPD exacerbation Current Visit: No Status: Acute Plan to address problem: Patient will be placed on nebulizing treatments and IV steroid. He is also placed on empiric IV antibiotics for possible underlying bronchitis (4) Acute respiratory distress Current Visit: No Status: Acute Plan to address problem: Possibly secondary to COPD exacerbation versus volume overload. Patient to receive dialysis and also to be placed on nebulizing treatments. (5) Diabetes Current Visit: No Status: Acute Plan to address problem: We will monitor Accu-Cheks. (6) HTN (hypertension) Current Visit: No Status: Chronic Qualifiers: Hypertension type: essential hypertension Qualified Code(s): I10 - Essential (primary) hypertension Plan to address problem: We will resume routine home medications and monitor vital signs closely. (7) DVT prophylaxis Current Visit: No Status: Acute Plan to address problem: Patient placed on subcutaneous heparin. (8) Full code status Current Visit: Yes Status: Acute Plan to address problem: Patient is full code.
[2020-08-30 02:45] LABS: Chol/HDL Ratio 3.29 %; HDL Cholesterol 47 mg/dL (40-59); LDL Cholesterol,Direct 101 mg/dL (50-130)
[2020-08-30] MEDS: IPRATROPIUM/ALBUTEROL SULFATE 3 ML AMPUL.NEB IH SCH ×4 (04:50→20:56)
[2020-08-30] MEDS: methylPREDNISolone Sod Succinate 40 MG/1 ML INJ IV SCH ×3 (05:33→21:48)
[2020-08-30] MEDS: HEPARIN 5,000 UNIT/1 ML VIAL SUB-Q SCH ×3 (05:33→21:48)
[2020-08-30 06:20] LABS: Hepatitis B Surface Antigen Non-Reactive (Negative); Hepatitis C Virus Antibody Non-Reactive (NonReactive)
[2020-08-30] MEDS: INSULIN LISPRO 100 UNIT/ML SUB-Q SCH ×4 (08:25→21:49)
--- NOTE | 2020-08-30 08:29 | Event Note ---
Date: 08/30/20 Patient seen and examined. This is a follow-up from an admission earlier this morning. We will continue to plan as outlined in H&P. Total visit time equals 35 minutes with greater than 50% spent on coordination of care and counseling.
--- NOTE | 2020-08-30 08:29 | Consultation ---
History of Present Illness - Reason for Consult Consult date: 08/30/20 end stage renal disease, hyperkalemia - History of Present Illness The patient is a 65 YO male with history significant for Morbid Obesity, HTN, DM type 2, COPD, Gout, NICM, COPD, Systolic CHF and ESRD on HD on MWF who presented to [facility] ED 08/29 with complaints of shortness of breath. Patient has been having sob for the past 5 days. He has also been having some cough productive of some greenish sputum. Patient also states that he has swelling of his upper lip for the past few days for which he was prescribed Acyclovir and Prednisone. Denies any tongue swelling, rash, chest pain, fever, chills, nausea, vomiting or abdominal pain. Patient denies any sick contacts, recent travel or contact with anyone with COVID-19. CXR showed cardiomegaly and was negative for fluid overload. Labs showed BUN 99, Cr 13.6 and potassium 6.6. He was admitted with acute resp distress in the setting of COPD exacerbation. Nephrology was consulted for management of ESRD and Hyperkalemia. Past History Past Medical History: COPD, diabetes, dialysis, ESRD, hypertension Past Surgical History: Other (Left arm A-V fistula placement) Social history: smoking (Current daily smoker) Family history: no significant family history Medications and Allergies Allergies Allergy/AdvReac Type Severity Reaction Status Date / Time No Known Allergies Allergy Verified 08/29/20 21:45 Home Medications Medication Instructions Recorded Confirmed Last Taken Type Azithromycin [Zithromax Z-JOSIE] 500 mg PO DAILY #10 tab 04/22/19 Unknown Rx Budesonide/Formoterol Fumarate 10.2 gm IH BID #1 hfa.aer.ad 04/22/19 Unknown Rx [Symbicort 160-4.5 Mcg Inhaler] Ipratropium/Albuterol Sulfate 1 ampul IH Q6HRT #30 ampul.neb 04/22/19 Unknown Rx [DUONEB *Not for PRN Use*] Prednisone [predniSONE 10 mg 10 mg PO .TAPER #1 tab.ds.pk 04/22/19 Unknown Rx (6-Day Pack, 21 Tabs)] carvediloL [Coreg] 3.125 mg PO BID 04/22/19 04/22/19 Unknown History guaiFENesin ER [Mucinex ER] 600 mg PO BID #20 tablet 04/24/19 Unknown Rx Active Meds: Active Medications Acetaminophen (Acetaminophen 325 Mg Tab) 650 mg PO Q4H PRN PRN Reason: Pain MILD(1-3)/Fever >100.5/ABERNATHY Albuterol/Ipratropium (Ipratropium/Albuterol Sulfate 3 Ml Ampul.Neb) 1 ampul IH Q6HRT [facility] Dextrose (Dextrose 50% In Water (25gm) 50 Ml Syringe) 0 ml IV Q30MIN PRN; Protocol PRN Reason: Hypoglycemia Heparin Sodium (Porcine) (Heparin 10,000 Units/10 Ml Vial) 2,000 unit IV FRANSISCO PRN PRN Reason: hemodialysis Heparin Sodium (Porcine) (Heparin 5,000 Unit/1 Ml Vial) 5,000 unit SUB-Q Q8HR [facility] Last Admin: 08/30/20 05:33 Dose: 5,000 unit Documented by: Sodium Chloride (Nacl 0.9%) 100 mls @ 999 mls/hr IV FRANSISCO PRN PRN Reason: Hypotension Levofloxacin/Dextrose (Levaquin 250mg/50ml) 250 mg in 50 mls @ 50 mls/hr IV Q48HR [facility] Insulin Human Lispro (Insulin Lispro 100 Unit/Ml) 0 unit SUB-Q ACHS [facility]; Protocol Last Admin: 08/30/20 08:25 Dose: Not Given Documented by: Magnesium Hydroxide (Magnesium Hydroxide (Mom) Oral Liqd Udc) 30 ml PO Q4H PRN PRN Reason: Constipation Methylprednisolone Sodium Succinate (Methylprednisolone Sod Succinate 40 Mg/1 Ml Inj) 40 mg IV Q8HR [facility] Last Admin: 08/30/20 05:33 Dose: 40 mg Documented by: Morphine Sulfate (Morphine 2 Mg/1 Ml Inj) 2 mg IV Q4H PRN PRN Reason: Pain, Moderate (4-6) Morphine Sulfate (Morphine 2 Mg/1 Ml Inj) 2 mg IV Q5MIN PRN PRN Reason: Chest Pain unrelieved by NTG Ondansetron HCl (Ondansetron 4 Mg/2 Ml Inj) 4 mg IV Q8H PRN PRN Reason: Nausea And Vomiting Sodium Chloride (Sodium Chloride 0.9% 10 Ml Flush Syringe) 10 ml IV BID [facility] Sodium Chloride (Sodium Chloride 0.9% 10 Ml Flush Syringe) 10 ml IV PRN PRN PRN Reason: LINE FLUSH Review of Systems Constitutional: no weight loss, no weight gain, no fever, no chills, no ano rexia, no weakness Cardiovascular: shortness of breath, dyspnea on exertion, high blood pressure, no chest pain, no orthopnea, no edema, no syncope, no lightheadedness, no leg edema Respiratory: cough, cough with sputum, shortness of breath, dyspnea on exertion, wheezing, no hemoptysis, no home oxygen Gastrointestinal: no abdominal pain, no nausea, no vomiting, no diarrhea, no melena Genitourinary Male: no dysuria, no hematuria Neurological: no convulsions, no aphasia, no change in speech, no change in mentation, no confusion Exam - Vital Signs Vital signs: Vital Signs Temp Pulse Resp BP Pulse Ox 98.8 F 84 15 119/70 91 08/29/20 18:13 08/29/20 18:13 08/29/20 18:13 08/29/20 18:13 08/29/20 18:13 Results - Lab Results 08/29/20 21:39 08/29/20 21:39 Most recent lab results Calcium 9.5 mg/dL (8.4-10.2) 08/29/20 21:39 Assessment and Plan 1. ESRD: Patient is on maintenance hemodialysis three times a week, MWF schedule. Last outpatient HD 08/27. Avoid nephrotoxic agents. Monitor renal function. Meds dosage based on GFR. Hemodialysis access L FA AVF. Hemodialysis: 08/30. 2. FEN: Hyperkalemia, s/p HD, monitor. HD today. Monitor lytes. 3. COPD exacerbation: Solumedrol, Abx and albuterol. Supplemental O2 as needed. 4. H/o systolic CHF. 5. HTN. Monitor BPs. Currently controlled. 6. DM type 2. Monitor blood sugar, controlled. Subjective: Patient was seen and examined at the bedside. Examination: General appearance: well-developed, well-nourished, appears stated age, obese, not in distress HEENT: ATNC, PERRL, mucous membranes moist, hearing intact, vision intact Neck: neck supple, trachea midline Respiratory: rhonchi heard throughout lung oseguera Heart: regular, S1S2, no murmur Abdomen: obese, normoactive bowel sounds, not tender, not distended Integumentary: no rash, warm and dry Neurologic: no focal deficit, no asterixis, alert, oriented x3 Ext: no edema Psychiatric: cooperative Hemodialysis access: L FA AVF
[2020-08-30 09:57] LABS: Calcium 10.4 mg/dL (8.4-10.2)
[2020-08-30] MEDS ORDERED: IPRATROPIUM/ALBUTEROL SULFATE 3 ML AMPUL.NEB IH SCH (14:00)
[2020-08-30] MEDS ORDERED: BUDESONIDE 0.5 MG/2 ML NEBU IH SCH ×2 (20:00)
[2020-08-30] MEDS ORDERED: ARFORMOTEROL 15 MCG/2 ML NEBU IH SCH (20:00)
[2020-08-30] MEDS: BUDESONIDE 0.5 MG/2 ML NEBU IH SCH (20:56)
[2020-08-30] MEDS: ARFORMOTEROL 15 MCG/2 ML NEBU IH SCH (20:56)
[2020-08-30] MEDS: carvediloL 3.125 MG TAB PO SCH (21:48)
[2020-08-30] MEDS: guaiFENesin ER 600 MG TAB PO SCH (21:48)
[2020-08-30] MEDS ORDERED: NON-FORMULARY EACH (Budesonide/Formoterol Fumarate [Symbicort 160-4.5 Mcg Inhaler] 10.2 GM IH SCH (22:00)
[2020-08-31] MEDS: IPRATROPIUM/ALBUTEROL SULFATE 3 ML AMPUL.NEB IH SCH ×4 (03:33→20:21)
[2020-08-31 05:51] LABS: Hematocrit 40.4 % (35.5-45.6); Hemoglobin 13.5 gm/dl (11.8-15.2); Mean Corpuscular HGB Conc 34 % (32-34); Mean Corpuscular Volume 113 fl (84-94); Platelet Count 146 K/mm3 (140-440); Red Blood Count 3.57 M/mm3 (3.65-5.03); Red Cell Distribution Width 14.5 % (13.2-15.2)
[2020-08-31 05:59] LABS: Calcium 9.2 mg/dL (8.4-10.2)
[2020-08-31 06:00] LABS: INR 1.02 (0.87-1.13)
[2020-08-31] MEDS: HEPARIN 5,000 UNIT/1 ML VIAL SUB-Q SCH ×3 (06:08→23:21)
[2020-08-31] MEDS: methylPREDNISolone Sod Succinate 40 MG/1 ML INJ IV SCH ×3 (06:08→23:21)
[2020-08-31 06:34] LABS: Total Cells Counted 100
[2020-08-31 06:35] LABS: Anisocytosis 1+; Macrocytosis 1+; Platelet Estimate Consistent w Auto; Toxic Granulation 2+
[2020-08-31] MEDS: INSULIN LISPRO 100 UNIT/ML SUB-Q SCH ×4 (07:39→23:29)
[2020-08-31] MEDS: carvediloL 3.125 MG TAB PO SCH (10:04)
[2020-08-31] MEDS: guaiFENesin ER 600 MG TAB PO SCH ×2 (10:04→23:21)
--- NOTE | 2020-08-31 10:06 | Progress Note ---
Assessment and Plan 1. ESRD: Patient is on maintenance hemodialysis three times a week, MWF schedule. Last outpatient HD 08/27. Avoid nephrotoxic agents. Monitor renal function. Meds dosage based on GFR. Hemodialysis access L FA AVF. Hemodialysis: 08/30, 08/30. 2. FEN: Hyperkalemia, improved with HD, monitor. Renal diet. Monitor lytes. 3. COPD exacerbation: Solumedrol, Abx and albuterol. Supplemental O2 as needed. Counseled to quit smoking. 4. H/o systolic CHF. 5. HTN. Monitor BPs. Currently controlled. 6. DM type 2. Monitor blood sugar, controlled. Subjective: Patient was seen and examined at the bedside. No new complaint. at the bedside. Examination: General appearance: well-developed, well-nourished, appears stated age, obese, not in distress HEENT: ATNC, PERRL, mucous membranes moist, hearing intact, vision intact Neck: neck supple, trachea midline Respiratory: rhonchi heard throughout lung oseguera Heart: regular, S1S2, no murmur Abdomen: obese, normoactive bowel sounds, not tender, not distended Integumentary: no rash, warm and dry Neurologic: no focal deficit, no asterixis, alert, oriented x3 Ext: no edema Psychiatric: cooperative Hemodialysis access: L FA AVF Subjective Date of service: 08/31/20 Objective - Vital Signs Vital signs: Vital Signs - 12hr 08/30/20 08/30/20 08/30/20 22:42 22:50 23:00 Temperature Pulse Rate 78 90 77 Pulse Rate [ Throughout] Respiratory 19 16 20 Rate Respiratory Rate [ Throughout] Blood Pressure 128/68 116/71 132/77 O2 Sat by Pulse 100 97 98 Oximetry 08/30/20 08/30/20 08/30/20 23:10 23:20 23:30 Temperature Pulse Rate 74 76 74 Pulse Rate [ Throughout] Respiratory 19 14 14 Rate Respiratory Rate [ Throughout] Blood Pressure 132/77 132/77 132/77 O2 Sat by Pulse 97 96 97 Oximetry 08/30/20 08/30/20 08/30/20 23:40 23:50 23:56 Temperature Pulse Rate 81 76 79 Pulse Rate [ Throughout] Respiratory 17 14 21 Rate Respiratory Rate [ Throughout] Blood Pressure 132/77 132/77 145/77 O2 Sat by Pulse 97 99 97 Oximetry 08/31/20 08/31/20 08/31/20 00:00 00:10 00:20 Temperature Pulse Rate 83 77 77 Pulse Rate [ Throughout] Respiratory 14 11 L 19 Rate Respiratory Rate [ Throughout] Blood Pressure 145/77 145/77 145/77 O2 Sat by Pulse 97 96 97 Oximetry 08/31/20 08/31/20 08/31/20 00:30 00:40 00:50 Temperature Pulse Rate 75 82 Pulse Rate [ Throughout] Respiratory 11 L 11 L Rate Respiratory Rate [ Throughout] Blood Pressure 145/77 145/77 145/77 O2 Sat by Pulse 97 94 95 Oximetry 08/31/20 08/31/20 08/31/20 01:00 01:10 03:00 Temperature Pulse Rate Pulse Rate [ 87 Throughout] Respiratory Rate Respiratory 20 Rate [ Throughout] Blood Pressure 145/77 145/77 O2 Sat by Pulse 94 95 Oximetry 08/31/20 08/31/20 08/31/20 03:20 04:00 07:41 Temperature 97.6 F 98.2 F Pulse Rate 74 69 88 Pulse Rate [ Throughout] Respiratory 18 18 Rate Respiratory Rate [ Throughout] Blood Pressure 122/79 126/82 O2 Sat by Pulse 87 94 Oximetry 08/31/20 08:24 Temperature Pulse Rate 88 Pulse Rate [ Throughout] Respiratory Rate Respiratory Rate [ Throughout] Blood Pressure O2 Sat by Pulse Oximetry - Lab 08/31/20 04:36 08/31/20 04:36 Most recent lab results Calcium 9.2 mg/dL (8.4-10.2) 08/31/20 04:36 Magnesium 1.90 mg/dL (1.7-2.3) 08/31/20 04:36 Medications & Allergies - Medications Allergies/Adverse Reactions: Allergies No Known Allergies Allergy (Verified 08/29/20 21:45) Home Medications: Home Medications Medication Instructions Recorded Confirmed Last Taken Type Budesonide/Formoterol Fumarate 10.2 gm IH BID #1 hfa.aer.ad 04/22/19 08/30/20 1 Month Ago Rx [Symbicort 160-4.5 Mcg Inhaler] ~07/30/20 Ipratropium/Albuterol Sulfate 1 ampul IH Q6HRT #30 ampul.neb 04/22/19 08/30/20 1 Day Ago Rx [DUONEB *Not for PRN Use*] ~08/29/20 Prednisone [predniSONE 10 mg 10 mg PO .TAPER #1 tab.ds.pk 04/22/19 08/30/20 1 Day Ago Rx (6-Day Pack, 21 Tabs)] ~08/29/20 Acyclovir [Zovirax Tab] 800 mg PO Q12H 08/30/20 08/30/20 1 Day Ago History ~08/29/20 Sucroferric Oxyhydroxide(Nf) 1 mg PO AC 08/30/20 08/31/20 1 Day Ago History [Velphoro (Nf)] ~08/29/20 Vit B Comp No.3/Folic/C/Biotin 1 each PO DAILY 08/30/20 08/31/20 1 Day Ago History [Nephro-[place] Rx Tablet] ~08/29/20 carvediloL [Coreg] 6.25 mg PO BID 08/30/20 08/30/20 08/30/20 History Active Medications: Generic Name Dose Route Start Last Admin Trade Name Freq PRN Reason Stop Dose Admin Acetaminophen 650 mg 08/30/20 00:19 Acetaminophen 325 Mg Tab PO Q4H PRN Pain MILD(1-3)/Fever >100.5/ABERNATHY Albuterol/Ipratropium 1 ampul 08/30/20 14:00 08/31/20 03:33 Ipratropium/Albuterol Sulfate 3 Ml Ampul.Neb IH 1 ampul Q6HRT JOSE Administration Arformoterol Tartrate 15 mcg 08/30/20 20:00 08/30/20 20:56 Arformoterol 15 Mcg/2 Ml Nebu IH Not Given Q12HRT JOSE Budesonide 0.5 mg 08/30/20 20:00 08/30/20 20:56 Budesonide 0.5 Mg/2 Ml Nebu IH Not Given Q12HRT JOSE Carvedilol 3.125 mg 08/30/20 22:00 08/31/20 10:04 Carvedilol 3.125 Mg Tab PO 3.125 mg BID JOSE Administration Dextrose 0 ml 08/30/20 00:19 Dextrose 50% In Water (25gm) 50 Ml Syringe IV Q30MIN PRN Hypoglycemia Protocol Guaifenesin 600 mg 08/30/20 22:00 08/31/20 10:04 Guaifenesin Er 600 Mg Tab PO 600 mg BID JOSE Administration Heparin Sodium (Porcine) 2,000 unit 08/29/20 23:44 Heparin 10,000 Units/10 Ml Vial IV FRANSISCO PRN hemodialysis Heparin Sodium (Porcine) 5,000 unit 08/30/20 06:00 08/31/20 06:08 Heparin 5,000 Unit/1 Ml Vial SUB-Q 5,000 unit Q8HR JOSE Administration Sodium Chloride 100 mls @ 999 mls/hr 08/29/20 23:44 Nacl 0.9% IV FRANSISCO PRN Hypotension Levofloxacin/Dextrose 500 mg in 100 mls @ 100 mls/hr 08/31/20 22:00 Levaquin 500mg/100ml IV Q48H [facility] Protocol Insulin Human Lispro 0 unit 08/30/20 07:30 08/31/20 07:39 Insulin Lispro 100 Unit/Ml SUB-Q Not Given ACHS [facility] Protocol Magnesium Hydroxide 30 ml 08/30/20 00:19 Magnesium Hydroxide (Mom) Oral Liqd Udc PO Q4H PRN Constipation Methylprednisolone Sodium Succinate 40 mg 08/30/20 06:00 08/31/20 06:08 Methylprednisolone Sod Succinate 40 Mg/1 Ml Inj IV 40 mg Q8HR JOSE Administration Morphine Sulfate 2 mg 08/30/20 00:19 Morphine 2 Mg/1 Ml Inj IV Q4H PRN Pain, Moderate (4-6) Morphine Sulfate 2 mg 08/30/20 00:19 Morphine 2 Mg/1 Ml Inj IV Q5MIN PRN Chest Pain unrelieved by NTG Ondansetron HCl 4 mg 08/30/20 00:19 Ondansetron 4 Mg/2 Ml Inj IV Q8H PRN Nausea And Vomiting Sodium Chloride 10 ml 08/30/20 10:00 08/31/20 10:05 Sodium Chloride 0.9% 10 Ml Flush Syringe IV 10 ml BID JOSE Administration Sodium Chloride 10 ml 08/30/20 00:19 Sodium Chloride 0.9% 10 Ml Flush Syringe IV PRN PRN LINE FLUSH
[2020-08-31] MEDS: BUDESONIDE 0.5 MG/2 ML NEBU IH SCH ×2 (11:00→20:20)
[2020-08-31] MEDS: ARFORMOTEROL 15 MCG/2 ML NEBU IH SCH ×2 (11:00→20:20)
--- NOTE | 2020-08-31 11:11 | Progress Note ---
Assessment and Plan Assessment and plan: 65-year-old -[place] male with past medical history as below who presents with lip and tongue swelling. (1) ESRD needing dialysis Current Visit: Yes Status: Acute Plan to address problem: Nephrology consulted Continue hemodialysis as scheduled (2) Acute hyperkalemia Current Visit: Yes Status: Acute Plan to address problem: Patient has had insulin and glucose, calcium chloride emergency room. Continue to monitor with dialysis (3) COPD exacerbation Current Visit: No Status: Acute Plan to address problem: Breathing treatments Levaquin antibiotics every 48 Steroids 40 mg every 8 (4) Acute respiratory distress Current Visit: No Status: Acute Plan to address problem: Patient satting at room air, no oxygen requirements Oxygen supplementation as required Continue antibiotics and steroids Covid swab pending (5) Diabetes Current Visit: No Status: Acute Plan to address problem: Insulin sliding scale, expect elevated blood glucose secondary to steroids (6) HTN (hypertension) Current Visit: No Status: Chronic Qualifiers: Hypertension type: essential hypertension Qualified Code(s): I10 - Essential (primary) hypertension Plan to address problem: Continue carvedilol (7) DVT prophylaxis Current Visit: No Status: Acute Plan to address problem: Patient placed on subcutaneous heparin. (8) Full code status Current Visit: Yes Status: Acute Plan to address problem: Patient is full code. Disposition: Patient's acute respiratory distress is resolving, continue dialysis, swab for Covid, patient needs breathing treatments. History Interval history: 08/31/2020: Patient seen and examined, continues to have a cough, no shortness of breath, no respiratory distress, family at the bedside, all questions answered. Spoke with case management, will get Covid test. In addition, was informed that patient had 24 beats of V. tach, telemetry reviewed, cardiology consulted. Hospitalist Physical - Physical exam Narrative exam: General appearance: no acute distress, well-nourished EENT: PERRL, EOM intact, hearing intact, clear oral mucosa, no lip swelling Neck: Present: supple, normal ROM Respiratory: Bilateral wheezing, no rales rhonchi heard Cardiovascular: Regular rate/rhythm, Normal S1 & S2. No gallop, rub Extremities: AV fistula in left arm, no ischemia, No edema, normal temperature, normal color, Full ROM Abdominal: soft, no tenderness, non-distended, normal bowel sounds Integumentary: Present: clear, warm, dry no wounds, no erythema noted Psychiatric: appropriate mood/affect, intact judgment & insight Neurologic: CNII-XII intact, moves all extremities, no sensory or motor abnormalities - Constitutional Vitals: Temp Pulse Resp BP Pulse Ox 98.2 F 88 18 126/82 94 08/31/20 07:41 08/31/20 08:24 08/31/20 07:41 08/31/20 07:41 08/31/20 07:41 HEART Score - HEART Score Troponin: Troponin T 0.061 ng/mL (0.00-0.029) H 08/30/20 00:33 Results - Labs CBC & Chem 7: 08/31/20 04:36 08/31/20 04:36 Labs: Laboratory Last Values WBC 12.6 K/mm3 (4.5-11.0) H 08/31/20 04:36 RBC 3.57 M/mm3 (3.65-5.03) L 08/31/20 04:36 Hgb 13.5 gm/dl (11.8-15.2) 08/31/20 04:36 Hct 40.4 % (35.5-45.6) 08/31/20 04:36 MCV 113 fl (84-94) H 08/31/20 04:36 MCH 38 pg (28-32) H 08/31/20 04:36 MCHC 34 % (32-34) 08/31/20 04:36 RDW 14.5 % (13.2-15.2) 08/31/20 04:36 Plt Count 146 K/mm3 (140-440) 08/31/20 04:36 Add Manual Diff Complete 08/31/20 04:36 Total Counted 100 08/31/20 04:36 Seg Neutrophils % [employer] 08/31/20 04:36 Seg Neuts % (Manual) 97.0 % (40.0-70.0) H 08/31/20 04:36 Lymphocytes % (Manual) 2.0 % (13.4-35.0) L 08/31/20 04:36 Monocytes % (Manual) 1.0 % (0.0-7.3) 08/31/20 04:36 Nucleated RBC % Not Reportable 08/31/20 04:36 Seg Neutrophils # Man 12.2 K/mm3 (1.8-7.7) H 08/31/20 04:36 Band Neutrophils # 0.0 K/mm3 08/31/20 04:36 Lymphocytes # (Manual) 0.3 K/mm3 (1.2-5.4) L 08/31/20 04:36 Abs React Lymphs (Man) 0.0 K/mm3 08/31/20 04:36 Monocytes # (Manual) 0.1 K/mm3 (0.0-0.8) 08/31/20 04:36 Eosinophils # (Manual) 0.0 K/mm3 (0.0-0.4) 08/31/20 04:36 Basophils # (Manual) 0.0 K/mm3 (0.0-0.1) 08/31/20 04:36 Metamyelocytes # 0.0 K/mm3 08/31/20 04:36 Myelocytes # 0.0 K/mm3 08/31/20 04:36 Promyelocytes # 0.0 K/mm3 08/31/20 04:36 Blast Cells # 0.0 K/mm3 08/31/20 04:36 WBC Morphology Not Reportable 08/31/20 04:36 Hypersegmented Neuts Not Reportable 08/31/20 04:36 Hyposegmented Neuts Not Reportable 08/31/20 04:36 Hypogranular Neuts Not Reportable 08/31/20 04:36 Smudge Cells Not Reportable 08/31/20 04:36 Toxic Granulation 2+ 08/31/20 04:36 Toxic Vacuolation Not Reportable 08/31/20 04:36 Dohle Bodies Not Reportable 08/31/20 04:36 Pelger-Huet Anomaly Not Reportable 08/31/20 04:36 [place] Rods Not Reportable 08/31/20 04:36 Platelet Estimate Consistent w auto 08/31/20 04:36 Clumped Platelets Not Reportable 08/31/20 04:36 Plt Clumps, EDTA Not Reportable 08/31/20 04:36 Large Platelets Not Reportable 08/31/20 04:36 Giant Platelets Not Reportable 08/31/20 04:36 Platelet Satelliting Not Reportable 08/31/20 04:36 Plt Morphology Comment Not Reportable 08/31/20 04:36 RBC Morphology Not Reportable 08/31/20 04:36 Dimorphic RBCs Not Reportable 08/31/20 04:36 Polychromasia Not Reportable 08/31/20 04:36 Hypochromasia Not Reportable 08/31/20 04:36 Poikilocytosis Not Reportable 08/31/20 04:36 Anisocytosis 1+ 08/31/20 04:36 Microcytosis Not Reportable 08/31/20 04:36 Macrocytosis 1+ 08/31/20 04:36 Spherocytes Not Reportable 08/31/20 04:36 Pappenheimer Bodies Not Reportable 08/31/20 04:36 Sickle Cells Not Reportable 08/31/20 04:36 Target Cells Not Reportable 08/31/20 04:36 Tear Drop Cells Not Reportable 08/31/20 04:36 Ovalocytes Not Reportable 08/31/20 04:36 Helmet Cells Not Reportable 08/31/20 04:36 [place] Bodies Not Reportable 08/31/20 04:36 [place] Rings Not Reportable 08/31/20 04:36 [place] Cells Not Reportable 08/31/20 04:36 Bite Cells Not Reportable 08/31/20 04:36 Crenated Cell Not Reportable 08/31/20 04:36 Elliptocytes Not Reportable 08/31/20 04:36 Acanthocytes (Spur) Not Reportable 08/31/20 04:36 Rouleaux Not Reportable 08/31/20 04:36 Hemoglobin C Crystals Not Reportable 08/31/20 04:36 Schistocytes Not Reportable 08/31/20 04:36 Malaria parasites Not Reportable 08/31/20 04:36 Con Bodies Not Reportable 08/31/20 04:36 Hem Pathologist Commnt No 08/31/20 04:36 PT 14.0 Sec. (12.2-14.9) 08/31/20 04:36 INR 1.02 (0.87-1.13) 08/31/20 04:36 APTT 23.6 Sec. (24.2-36.6) L 08/29/20 21:39 Sodium 133 mmol/L (137-145) L 08/31/20 04:36 Potassium 4.7 mmol/L (3.6-5.0) 08/31/20 04:36 Chloride 91.8 mmol/L (98-107) L 08/31/20 04:36 Carbon Dioxide 25 mmol/L (22-30) 08/31/20 04:36 Anion Gap 21 mmol/L 08/31/20 04:36 BUN 72 mg/dL (9-20) H 08/31/20 04:36 Creatinine 10.1 mg/dL (0.8-1.3) H 08/31/20 04:36 Estimated GFR 6 ml/min 08/31/20 04:36 BUN/Creatinine Ratio 7 % 08/31/20 04:36 Glucose 146 mg/dL (75-100) H 08/31/20 04:36 POC Glucose 129 mg/dL (70-105) H 08/31/20 07:41 Calcium 9.2 mg/dL (8.4-10.2) 08/31/20 04:36 Magnesium 1.90 mg/dL (1.7-2.3) 08/31/20 04:36 Total Bilirubin 0.50 mg/dL (0.1-1.2) 08/29/20 21:39 Direct Bilirubin < 0.2 mg/dL (0-0.2) 08/29/20 21:39 Indirect Bilirubin 0.3 mg/dL 08/29/20 21:39 AST 29 units/L (5-40) 08/29/20 21:39 ALT 25 units/L (7-56) 08/29/20 21:39 Alkaline Phosphatase 111 units/L (35-129) 08/29/20 21:39 Troponin T 0.061 ng/mL (0.00-0.029) H 08/30/20 00:33 Total Protein 8.2 g/dL (6.3-8.2) 08/29/20 21:39 Albumin 3.9 g/dL (3.9-5) 08/29/20 21:39 Albumin/Globulin Ratio 0.9 % 08/29/20 21:39 Triglycerides 66 mg/dL (2-149) 08/29/20 21:39 Cholesterol 155 mg/dL (50-199) 08/29/20 21:39 LDL Cholesterol Direct 101 mg/dL (50-130) 08/29/20 21:39 HDL Cholesterol 47 mg/dL (40-59) 08/29/20 21:39 Cholesterol/HDL Ratio 3.29 % 08/29/20 21:39 Hepatitis A IgM Ab Non-reactive (NonReactive) 08/30/20 03:38 Hep Bs Antigen Non-reactive (Negative) 08/30/20 03:38 Hep B Core IgM Ab Non-reactive (NonReactive) 08/30/20 03:38 Hepatitis C Antibody Non-reactive (NonReactive) 08/30/20 03:38 Microbiology: Microbiology 08/29/20 21:39 Peripheral/Venous Blood Culture - Preliminary NO GROWTH AFTER 24 HOURS 08/29/20 21:39 Peripheral/Venous Blood Culture - Preliminary NO GROWTH AFTER 24 HOURS Car/IV: Voiding Method Toilet Active Medications - Current Medications Current Medications: Generic Name Dose Route Start Last Admin Trade Name Freq PRN Reason Stop Dose Admin Acetaminophen 650 mg 08/30/20 00:19 Acetaminophen 325 Mg Tab PO Q4H PRN Pain MILD(1-3)/Fever >100.5/ABERNATHY Albuterol/Ipratropium 1 ampul 08/30/20 14:00 08/31/20 10:59 Ipratropium/Albuterol Sulfate 3 Ml Ampul.Neb IH 1 ampul Q6HRT JOSE Administration Arformoterol Tartrate 15 mcg 08/30/20 20:00 08/31/20 11:00 Arformoterol 15 Mcg/2 Ml Nebu IH 15 mcg Q12HRT JOSE Administration Budesonide 0.5 mg 08/30/20 20:00 08/31/20 11:00 Budesonide 0.5 Mg/2 Ml Nebu IH 0.5 mg Q12HRT JOSE Administration Carvedilol 3.125 mg 08/30/20 22:00 08/31/20 10:04 Carvedilol 3.125 Mg Tab PO 3.125 mg BID JOSE Administration Dextrose 0 ml 08/30/20 00:19 Dextrose 50% In Water (25gm) 50 Ml Syringe IV Q30MIN PRN Hypoglycemia Protocol Guaifenesin 600 mg 08/30/20 22:00 08/31/20 10:04 Guaifenesin Er 600 Mg Tab PO 600 mg BID JOSE Administration Heparin Sodium (Porcine) 2,000 unit 08/29/20 23:44 Heparin 10,000 Units/10 Ml Vial IV FRANSISCO PRN hemodialysis Heparin Sodium (Porcine) 5,000 unit 08/30/20 06:00 08/31/20 06:08 Heparin 5,000 Unit/1 Ml Vial SUB-Q 5,000 unit Q8HR JOSE Administration Sodium Chloride 100 mls @ 999 mls/hr 08/29/20 23:44 Nacl 0.9% IV FRANSISCO PRN Hypotension Insulin Human Lispro 0 unit 08/30/20 07:30 08/31/20 07:39 Insulin Lispro 100 Unit/Ml SUB-Q Not Given ACHS JOSE Protocol Levofloxacin 500 mg 08/31/20 22:00 Levofloxacin 500 Mg Tab PO 09/06/20 22:01 Q48H [facility] Protocol Magnesium Hydroxide 30 ml 08/30/20 00:19 Magnesium Hydroxide (Mom) Oral Liqd Udc PO Q4H PRN Constipation Methylprednisolone Sodium Succinate 40 mg 08/30/20 06:00 08/31/20 06:08 Methylprednisolone Sod Succinate 40 Mg/1 Ml Inj IV 40 mg Q8HR JOSE Administration Morphine Sulfate 2 mg 08/30/20 00:19 Morphine 2 Mg/1 Ml Inj IV Q4H PRN Pain, Moderate (4-6) Morphine Sulfate 2 mg 08/30/20 00:19 Morphine 2 Mg/1 Ml Inj IV Q5MIN PRN Chest Pain unrelieved by NTG Ondansetron HCl 4 mg 08/30/20 00:19 Ondansetron 4 Mg/2 Ml Inj IV Q8H PRN Nausea And Vomiting Sodium Chloride 10 ml 08/30/20 10:00 08/31/20 10:05 Sodium Chloride 0.9% 10 Ml Flush Syringe IV 10 ml BID JOSE Administration Sodium Chloride 10 ml 08/30/20 00:19 Sodium Chloride 0.9% 10 Ml Flush Syringe IV PRN PRN LINE FLUSH Nutrition/Malnutrition Assess - Dietary Evaluation Nutrition/Malnutrition Findings: Nutrition Notes Start: 08/30/20 09:12 Freq: Status: Active Protocol: Document 08/30/20 09:12 DEMETRIA (Rec: 08/30/20 09:14 DEMETRIA [id number]) Nutrition Notes Need for Assessment generated from: MD Order Initial or Follow up Brief Note Current Diagnosis CKD (stage V CKD),COPD, Diabetes,Hypertension,Heart Failure,Respiratory Failure Other Pertinent Diagnosis on HD Current Diet Cardiac, Consisent CHO Labs/Tests K 6.6 Subjective/Other Information MD order for DM diet education . Pt on hold in ED. Nutrition Intervention Change Diet Order: Add renal Follow-Up By: 08/31/20 Additional Comments FU for diet education needs
--- NOTE | 2020-08-31 12:10 | Consultation ---
History of Present Illness Consult date: 08/31/20 Requesting physician: ION HARVEY Consult reason: arrhythmia History of present illness: This patient is a 65-year-old male with a significant history of nonischemic cardiomyopathy, ESRD on HD, hypertension, diabetes, COPD, severe mitral regurg. He is followed by Dr. Tadeo, [facility] heart specialists. Patient presents to [facility] ER with chief complaint of upper lip swelling, shortness of breath x5 days with productive cough. Cardiology is consulted for episode of nonsustained V. tach on telemetry. At time of interview patient denies any weakness, dizziness, chest pain, abdominal pain, and/V/D, recent illness or known exposure. Patient has been compliant with dialysis. Of note patient has known significant history of severe cardiomyopathy with ventricular ectopy and severe mitral regurg. He has been recommended previously for LifeVest placement, electrophysiology referral for AICD, and referral to [place] structural cardiology to address mitral regurg. Patient has refused these steps in the past. After discussion the patient on this visit we will place new order for LifeVest. CXR reviewed shows cardiomegaly without CHF. Past History Past Medical History: COPD, diabetes, dialysis, ESRD, hypertension, other (See HPI) Past Surgical History: Other (Left arm A-V fistula placement) Social history: smoking (Current daily smoker) Family history: no significant family history Medications and Allergies Allergies Allergy/AdvReac Type Severity Reaction Status Date / Time No Known Allergies Allergy Verified 08/29/20 21:45 Home Medications Medication Instructions Recorded Confirmed Last Taken Type Budesonide/Formoterol Fumarate 10.2 gm IH BID #1 hfa.aer.ad 04/22/19 08/30/20 1 Month Ago Rx [Symbicort 160-4.5 Mcg Inhaler] ~07/30/20 Ipratropium/Albuterol Sulfate 1 ampul IH Q6HRT #30 ampul.neb 04/22/19 08/30/20 1 Day Ago Rx [DUONEB *Not for PRN Use*] ~08/29/20 Prednisone [predniSONE 10 mg 10 mg PO .TAPER #1 tab.ds.pk 04/22/19 08/30/20 1 Da y Ago Rx (6-Day Pack, 21 Tabs)] ~08/29/20 Acyclovir [Zovirax Tab] 800 mg PO Q12H 08/30/20 08/30/20 1 Day Ago History ~08/29/20 Sucroferric Oxyhydroxide(Nf) 1 mg PO AC 08/30/20 08/31/20 1 Day Ago History [Velphoro (Nf)] ~08/29/20 Vit B Comp No.3/Folic/C/Biotin 1 each PO DAILY 08/30/20 08/31/20 1 Day Ago History [Nephro-[place] Rx Tablet] ~08/29/20 carvediloL [Coreg] 6.25 mg PO BID 08/30/20 08/30/20 08/30/20 History Active Meds: Active Medications Acetaminophen (Acetaminophen 325 Mg Tab) 650 mg PO Q4H PRN PRN Reason: Pain MILD(1-3)/Fever >100.5/ABERNATHY Albuterol/Ipratropium (Ipratropium/Albuterol Sulfate 3 Ml Ampul.Neb) 1 ampul IH Q6HRT [facility] Last Admin: 08/31/20 10:59 Dose: 1 ampul Documented by: Arformoterol Tartrate (Arformoterol 15 Mcg/2 Ml Nebu) 15 mcg IH Q12HRT [facility] Last Admin: 08/31/20 11:00 Dose: 15 mcg Documented by: Budesonide (Budesonide 0.5 Mg/2 Ml Nebu) 0.5 mg IH Q12HRT [facility] Last Admin: 08/31/20 11:00 Dose: 0.5 mg Documented by: Carvedilol (Carvedilol 3.125 Mg Tab) 3.125 mg PO BID [facility] Last Admin: 08/31/20 10:04 Dose: 3.125 mg Documented by: Dextrose (Dextrose 50% In Water (25gm) 50 Ml Syringe) 0 ml IV Q30MIN PRN; Protocol PRN Reason: Hypoglycemia Guaifenesin (Guaifenesin Er 600 Mg Tab) 600 mg PO BID [facility] Last Admin: 08/31/20 10:04 Dose: 600 mg Documented by: Heparin Sodium (Porcine) (Heparin 10,000 Units/10 Ml Vial) 2,000 unit IV FRANSISCO PRN PRN Reason: hemodialysis Heparin Sodium (Porcine) (Heparin 5,000 Unit/1 Ml Vial) 5,000 unit SUB-Q Q8HR [facility] Last Admin: 08/31/20 06:08 Dose: 5,000 unit Documented by: Sodium Chloride (Nacl 0.9%) 100 mls @ 999 mls/hr IV FRANSISCO PRN PRN Reason: Hypotension Insulin Human Lispro (Insulin Lispro 100 Unit/Ml) 0 unit SUB-Q ACHS [facility]; Protocol Last Admin: 08/31/20 07:39 Dose: Not Given Documented by: Levofloxacin (Levofloxacin 500 Mg Tab) 500 mg PO Q48H [facility]; Protocol Stop: 09/06/20 22:01 Magnesium Hydroxide (Magnesium Hydroxide (Mom) Oral Liqd Udc) 30 ml PO Q4H PRN PRN Reason: Constipation Methylprednisolone Sodium Succinate (Methylprednisolone Sod Succinate 40 Mg/1 Ml Inj) 40 mg IV Q8HR [facility] Last Admin: 08/31/20 06:08 Dose: 40 mg Documented by: Morphine Sulfate (Morphine 2 Mg/1 Ml Inj) 2 mg IV Q4H PRN PRN Reason: Pain, Moderate (4-6) Morphine Sulfate (Morphine 2 Mg/1 Ml Inj) 2 mg IV Q5MIN PRN PRN Reason: Chest Pain unrelieved by NTG Ondansetron HCl (Ondansetron 4 Mg/2 Ml Inj) 4 mg IV Q8H PRN PRN Reason: Nausea And Vomiting Sodium Chloride (Sodium Chloride 0.9% 10 Ml Flush Syringe) 10 ml IV BID [facility] Last Admin: 08/31/20 10:05 Dose: 10 ml Documented by: Sodium Chloride (Sodium Chloride 0.9% 10 Ml Flush Syringe) 10 ml IV PRN PRN PRN Reason: LINE FLUSH Review of Systems Constitutional: no weight loss, no weight gain, no fever, no chills, no sweats, no night sweats Ears, nose, mouth and throat: no ear pain, no nose pain, no nasal congestion, no nasal discharge Cardiovascular: dyspnea on exertion, decreased exercise tolerance, no chest pain, no orthopnea, no palpitations, no rapid/irregular heart beat, no edema, no syncope, no lightheadedness, no shortness of breath, no paroxysmal nocturnal dyspnea, no claudication, no phlebitis, no high blood pressure, no leg edema Respiratory: cough, cough with sputum, dyspnea on exertion, congestion, other (Rhonchi bilateral), no hemoptysis, no shortness of breath, no wheezing Gastrointestinal: no abdominal pain, no nausea, no vomiting, no diarrhea Genitourinary Male: no flank pain Musculoskeletal: no neck stiffness, no neck pain, no shooting arm pain, no arm numbness/tingling, no low back pain, no shooting leg pain Integumentary: no rash, no pruritis, no redness, no sores, no wounds Neurological: no head injury, no paralysis, no weakness, no parathesias, no numbness, no tingling, no seizures, no syncope Psychiatric: no anxiety Endocrine: no cold intolerance, no heat intolerance Hematologic/Lymphatic: no easy bruising, no easy bleeding Allergic/Immunologic: no urticaria Physical Examination Vital Signs Temp Pulse Resp BP Pulse Ox 98.8 F 84 15 119/70 91 08/29/20 18:13 08/29/20 18:13 08/29/20 18:13 08/29/20 18:13 08/29/20 18:13 General appearance: no acute distress HEENT: Positive: PERRL, Normocephaly, Mucus Membranes Moist Neck: Positive: neck supple, trachea midline Cardiac: Positive: Reg Rate and Rhythm, S1/S2, Systolic Murmur (2/6) Lungs: Positive: Decreased Breath Sounds, Rhonchi Neuro: Positive: Grossly Intact Abdomen: Positive: Soft, Active Bowel Sounds Skin: Negative: Rash, Wound Musculoskeletal: other (Chronic knee pain bilaterally) Extremities: Present: upper extr. pulses, lower extr. pulses, edema (Trace to 1+ bilateral lower extremity edema) Results 08/31/20 04:36 08/31/20 04:36 Coagulation 08/31/20 Range/Units 04:36 PT 14.0 (12.2-14.9) Sec. INR 1.02 (0.87-1.13) CBC 08/31/20 Range/Units 04:36 WBC 12.6 H (4.5-11.0) K/mm3 RBC 3.57 L (3.65-5.03) M/mm3 Hgb 13.5 (11.8-15.2) gm/dl Hct 40.4 (35.5-45.6) % Plt Count 146 (140-440) K/mm3 Comprehensive Metabolic Panel 08/31/20 Range/Units 04:36 Sodium 133 L (137-145) mmol/L Potassium 4.7 (3.6-5.0) mmol/L Chloride 91.8 L (98-107) mmol/L Carbon Dioxide 25 (22-30) mmol/L BUN 72 H (9-20) mg/dL Creatinine 10.1 H (0.8-1.3) mg/dL Glucose 146 H (75-100) mg/dL Calcium 9.2 (8.4-10.2) mg/dL - Imaging and Cardiology Echo: pending, report reviewed (Echocardiogram reviewed (02/10/2020): LVEF 20 to 25%. LV is severely dilated, severe global hypokinesis. Grade 2 diastolic dysfunction. RV is dilated with mild hypokinesis. RA is severely enlarged with area of 27.9 cm. LA volume 70.66 mL/cm. Severe MR. Mild TR RVSP 44.67 mmHg) EKG: report reviewed, image reviewed EKG interpretations - Telemetry EKG Rhythm: Sinus Rhythm - EKG Sinus rhythms and dysrhythmias: sinus rhythm Assessment and Plan Acute respiratory failure secondary to COPD exacerbation * : Exam patient has significant rhonchi bilaterally with productive cough. Patient admits to continued use of tobacco. Believe main acute problem is COPD exacerbation. Pulmonology is consulted Acute on chronic heart failure with reduced ejection fraction in setting of severe nonischemic dilated cardiomyopathy and severe mitral regurg * Echocardiogram reviewed (02/10/2020): LVEF 20 to 25%. LV is severely dilated, severe global hypokinesis. Grade 2 diastolic dysfunction. RV is dilated with mild hypokinesis. RA is severely enlarged with area of 27.9 cm. LA volume 70.66 mL/cm. Severe MR. Mild TR RVSP 44.67 mmHg * Repeat echo is pending * Patient has several runs of nonsustained V. tach on telemetry with longest being 24 beats. Optimize rate control: Discontinue Coreg and initiate metoprolol 25 mg 3 times daily. * GDMT: ASA 81, statin, BB, ARB. Recommend no KELLY inhibitor due to complaint of lip swelling. * Life vest ordered. Elevated troponin and hyperkalemia secondary to ESRD on HD * Patient is currently chest pain-free. Twelve-lead ECG shows sinus rhythm with no acute ischemic changes. * Troponins are elevated, subacute and nonspecific. Likely result of supply dem and mismatch secondary to ESRD. Continue to trend CE's * Initial labs show significantly elevated potassium. Patient reports no missed dialysis. Patient admitted for emergent HD. Nephrology is following Tobacco use * Cessation encouraged DVT prophylaxis * Heparin SQ LifeVest ordered. Repeat echo is pending. We will follow Patient should follow-up with Dr. Huseyin Ríos, [facility] heart specialists within 1 to 2 weeks of discharge. #[id number] This patient was seen in conjunction with Dr Valdivia who agrees with this assessment and plan of care - Patient Problems (1) Acute respiratory failure Current Visit: Yes Status: Acute Qualifiers: Respiratory failure complication: hypoxia Qualified Code(s): J96.01 - Acute respiratory failure with hypoxia (2) COPD with exacerbation Current Visit: No Status: Acute (3) Acute on chronic HFrEF (heart failure with reduced ejection fraction) Current Visit: Yes Status: Acute (4) Cardiomyopathy Current Visit: Yes Status: Chronic (5) ESRD (end stage renal disease) on dialysis Current Visit: Yes Status: Chronic (6) Elevated troponin Current Visit: Yes Status: Chronic Plan to address problem: Type II, subacute nonspecific (7) Acute hyperkalemia Current Visit: Yes Status: Acute (8) DVT prophylaxis Current Visit: Yes Status: Acute (9) Diabetes Current Visit: Yes Status: Chronic (10) HTN (hypertension) Current Visit: Yes Status: Chronic Qualifiers: Hypertension type: essential hypertension Qualified Code(s): I10 - Essential (primary) hypertension
[2020-08-31] MEDS: METOPROLOL TARTRATE 25 MG TAB PO SCH ×2 (14:06→23:23)
[2020-08-31] MEDS ORDERED: levoFLOXacin 500 MG TAB PO SCH (22:00)
[2020-08-31] MEDS ORDERED: IPRATROPIUM/ALBUTEROL SULFATE 3 ML AMPUL.NEB IH SCH (22:00)
[2020-09-01 06:08] LABS: Hematocrit 38.8 % (35.5-45.6); Hemoglobin 13.1 gm/dl (11.8-15.2); Mean Corpuscular HGB Conc 34 % (32-34); Mean Corpuscular Volume 112 fl (84-94); Platelet Count 135 K/mm3 (140-440); Red Blood Count 3.46 M/mm3 (3.65-5.03); Red Cell Distribution Width 14.2 % (13.2-15.2)
[2020-09-01 06:30] LABS: Calcium 9.4 mg/dL (8.4-10.2)
[2020-09-01] MEDS: methylPREDNISolone Sod Succinate 40 MG/1 ML INJ IV SCH (07:15)
[2020-09-01] MEDS: HEPARIN 5,000 UNIT/1 ML VIAL SUB-Q SCH (07:15)
[2020-09-01] MEDS: INSULIN LISPRO 100 UNIT/ML SUB-Q SCH ×2 (07:58→12:00)
[2020-09-01] MEDS ORDERED: IPRATROPIUM/ALBUTEROL SULFATE 3 ML AMPUL.NEB IH SCH (08:00)
[2020-09-01] MEDS: BUDESONIDE 0.5 MG/2 ML NEBU IH SCH (08:39)
[2020-09-01] MEDS: ARFORMOTEROL 15 MCG/2 ML NEBU IH SCH (08:39)
--- NOTE | 2020-09-01 08:58 | Consultation ---
History of Present Illness Consult date: 09/01/20 Requesting physician: ION HARVEY Reason for consult: COPD History of present illness: 65 y/o male with known nonischemic cardiomyopathy, pulm htn, systolic heart failure and tobacco abuse admitted several days ago with shortness of breath. Past History Past Medical History: COPD, diabetes, dialysis, ESRD, hypertension, other (See HPI) Past Surgical History: Other (Left arm A-V fistula placement) Social history: smoking (Current daily smoker) Family history: no significant family history Medications and Allergies Allergies Allergy/AdvReac Type Severity Reaction Status Date / Time No Known Allergies Allergy Verified 08/29/20 21:45 Home Medications Medication Instructions Recorded Confirmed Last Taken Type Ipratropium/Albuterol Sulfate 1 ampul IH Q6HRT #30 ampul.neb 04/22/19 08/30/20 1 Day Ago Rx [DUONEB *Not for PRN Use*] ~08/29/20 Acyclovir [Zovirax Tab] 800 mg PO Q12H 08/30/20 08/30/20 1 Day Ago History ~08/29/20 Sucroferric Oxyhydroxide(Nf) 1 mg PO AC 08/30/20 08/31/20 1 Day Ago History [Velphoro (Nf)] ~08/29/20 Vit B Comp No.3/Folic/C/Biotin 1 each PO DAILY 08/30/20 08/31/20 1 Day Ago History [Nephro-[place] Rx Tablet] ~08/29/20 carvediloL [Coreg] 6.25 mg PO BID 08/30/20 08/30/20 08/30/20 History Budesonide/Formoterol Fumarate 10.2 gm IH BID #1 hfa.aer.ad 09/01/20 Unknown Rx [Symbicort 160-4.5 Mcg Inhaler] predniSONE 10 mg PO QDAY 3 Days #3 tab 09/01/20 Unknown Rx predniSONE [Deltasone] 20 mg PO DAILY 3 Days #3 tablet 09/01/20 Unknown Rx predniSONE [Deltasone] 40 mg PO QDAY 3 Days #6 tab 09/01/20 Unknown Rx Active Meds: Active Medications Acetaminophen (Acetaminophen 325 Mg Tab) 650 mg PO Q4H PRN PRN Reason: Pain MILD(1-3)/Fever >100.5/ABERNATHY Albuterol/Ipratropium (Ipratropium/Albuterol Sulfate 3 Ml Ampul.Neb) 1 ampul IH TIDRT [facility] Last Admin: 09/01/20 08:39 Dose: 1 ampul Documented by: Arformoterol Tartrate (Arformoterol 15 Mcg/2 Ml Nebu) 15 mcg IH Q12HRT [facility] Last Admin: 09/01/20 08:39 Dose: 15 mcg Documented by: Aspirin (Aspirin 81 Mg Tab Chew) 81 mg PO QDAY [facility] Atorvastatin Calcium (Atorvastatin 40 Mg Tab) 40 mg PO QHS [facility] Last Admin: 08/31/20 23:21 Dose: 40 mg Documented by: Budesonide (Budesonide 0.5 Mg/2 Ml Nebu) 0.5 mg IH Q12HRT [facility] Last Admin: 09/01/20 08:39 Dose: 0.5 mg Documented by: Dextrose (Dextrose 50% In Water (25gm) 50 Ml Syringe) 0 ml IV Q30MIN PRN; Protocol PRN Reason: Hypoglycemia Guaifenesin (Guaifenesin Er 600 Mg Tab) 600 mg PO BID [facility] Last Admin: 08/31/20 23:21 Dose: 600 mg Documented by: Heparin Sodium (Porcine) (Heparin 10,000 Units/10 Ml Vial) 2,000 unit IV FRANSISCO PRN PRN Reason: hemodialysis Heparin Sodium (Porcine) (Heparin 5,000 Unit/1 Ml Vial) 5,000 unit SUB-Q Q8HR [facility] Last Admin: 09/01/20 07:15 Dose: 5,000 unit Documented by: Sodium Chloride (Nacl 0.9%) 100 mls @ 999 mls/hr IV FRANSISCO PRN PRN Reason: Hypotension Insulin Human Lispro (Insulin Lispro 100 Unit/Ml) 0 unit SUB-Q ACHS [facility]; Protocol Last Admin: 08/31/20 23:29 Dose: Not Given Documented by: Levofloxacin (Levofloxacin 500 Mg Tab) 500 mg PO Q48H [facility]; Protocol Stop: 09/06/20 22:01 Last Admin: 08/31/20 23:21 Dose: 500 mg Documented by: Losartan Potassium (Losartan 25 Mg Tab) 12.5 mg PO QDAY [facility] Magnesium Hydroxide (Magnesium Hydroxide (Mom) Oral Liqd Udc) 30 ml PO Q4H PRN PRN Reason: Constipation Methylprednisolone Sodium Succinate (Methylprednisolone Sod Succinate 40 Mg/1 Ml Inj) 40 mg IV Q8HR [facility] Last Admin: 09/01/20 07:15 Dose: 40 mg Documented by: Metoprolol Tartrate (Metoprolol Tartrate 25 Mg Tab) 50 mg PO BID [facility] Morphine Sulfate (Morphine 2 Mg/1 Ml Inj) 2 mg IV Q4H PRN PRN Reason: Pain, Moderate (4-6) Morphine Sulfate (Morphine 2 Mg/1 Ml Inj) 2 mg IV Q5MIN PRN PRN Reason: Chest Pain unrelieved by NTG Ondansetron HCl (Ondansetron 4 Mg/2 Ml Inj) 4 mg IV Q8H PRN PRN Reason: Nausea And Vomiting Sodium Chloride (Sodium Chloride 0.9% 10 Ml Flush Syringe) 10 ml IV BID [facility] Last Admin: 08/31/20 23:29 Dose: 10 ml Documented by: Sodium Chloride (Sodium Chloride 0.9% 10 Ml Flush Syringe) 10 ml IV PRN PRN PRN Reason: LINE FLUSH Physical Examination Vital signs: Vital Signs Temp Pulse Resp BP Pulse Ox 98.8 F 84 15 119/70 91 08/29/20 18:13 08/29/20 18:13 08/29/20 18:13 08/29/20 18:13 08/29/20 18:13 Results - Laboratory Findings CBC and BMP: 09/01/20 05:32 09/01/20 05:32 PT/INR, D-dimer PT 14.0 Sec. (12.2-14.9) 08/31/20 04:36 INR 1.02 (0.87-1.13) 08/31/20 04:36 Abnormal lab findings: Abnormal Labs 08/29/20 08/29/20 08/29/20 21:39 21:39 21:39 WBC 13.5 H RBC 3.60 L MCV 113 H MCH 38 H Plt Count Seg Neuts % (Manual) 91.0 H Lymphocytes % (Manual) 8.0 L Seg Neutrophils # Man 12.3 H Lymphocytes # (Manual) 1.1 L APTT 23.6 L Sodium Potassium 6.6 H* Chloride Carbon Dioxide 17 L BUN 99 H Creatinine 13.6 H Glucose 137 H POC Glucose Calcium Troponin T 0.070 H 08/30/20 08/30/20 08/30/20 00:33 08:22 09:34 WBC RBC MCV MCH Plt Count Seg Neuts % (Manual) Lymphocytes % (Manual) Seg Neutrophils # Man Lymphocytes # (Manual) APTT Sodium 133 L Potassium Chloride 92.3 L Carbon Dioxide BUN 76 H Creatinine 11.8 H Glucose 201 H POC Glucose 119 H Calcium 10.4 H Troponin T 0.061 H 08/30/20 08/30/20 08/31/20 16:55 20:57 04:36 WBC 12.6 H RBC 3.57 L MCV 113 H MCH 38 H Plt Count Seg Neuts % (Manual) 97.0 H Lymphocytes % (Manual) 2.0 L Seg Neutrophils # Man 12.2 H Lymphocytes # (Manual) 0.3 L APTT Sodium Potassium Chloride Carbon Dioxide BUN Creatinine Glucose POC Glucose 167 H 175 H Calcium Troponin T 08/31/20 08/31/20 08/31/20 04:36 07:41 11:59 WBC RBC MCV MCH Plt Count Seg Neuts % (Manual) Lymphocytes % (Manual) Seg Neutrophils # Man Lymphocytes # (Manual) APTT Sodium 133 L Potassium Chloride 91.8 L Carbon Dioxide BUN 72 H Creatinine 10.1 H Glucose 146 H POC Glucose 129 H 160 H Calcium Troponin T 08/31/20 08/31/20 09/01/20 16:44 21:09 05:32 WBC 11.5 H RBC 3.46 L MCV 112 H MCH 38 H Plt Count 135 L Seg Neuts % (Manual) Lymphocytes % (Manual) Seg Neutrophils # Man Lymphocytes # (Manual) APTT Sodium Potassium Chloride Carbon Dioxide BUN Creatinine Glucose POC Glucose 136 H 113 H Calcium Troponin T 09/01/20 09/01/20 05:32 08:03 WBC RBC MCV MCH Plt Count Seg Neuts % (Manual) Lymphocytes % (Manual) Seg Neutrophils # Man Lymphocytes # (Manual) APTT Sodium 131 L Potassium Chloride 86.5 L Carbon Dioxide BUN 105 H Creatinine 12.1 H Glucose 167 H POC Glucose 132 H Calcium Troponin T 0.044 H D Assessment and Plan 65 y/o male with cough and shortness of breath with rhonchi, concern for COPD exacerbation. 1. Repeat CXR today 2. Send BNP 3. Agree with current dose of IV steroids started 2 days ago 4. Continue pulmicort, will stop brovana and increase the frequency on scheduled duonebs to QID 5. Maintain daily net negative fluid balance 6. Smoking cessation. Addendum. Appears patient is being discharged today, can follow up in office to complete COPD work up. No need to do numbers 1 and 2. Suggest steroid taper at discharge.
[2020-09-01] MEDS ORDERED: SUCROFERRIC OXYHYDROXIDE 500 MG PO SCH (09:20)
--- NOTE | 2020-09-01 09:41 | Progress Note ---
Assessment and Plan Acute respiratory failure secondary to COPD exacerbation * Exam patient has bilateral ronchi, significantly improved from previous exam. Pulmonology is Following Acute on chronic heart failure with reduced ejection fraction in setting of severe nonischemic dilated cardiomyopathy and severe mitral regurg * Echocardiogram reviewed (08/30/2020): LVEF is 25 to 30%. LV is severely dilated. LV SF is severely decreased. Mild LVH. Severe global hypokinesis of the left ventricle. Mild diastolic dysfunction is present. RV SF is normal. LA is mildly dilated. Severe mitral regurg. RVSP is 19 mmHg. Mild RI * GDMT: ASA 81, statin, BB, ARB. Recommend no KELLY inhibitor due to complaint of lip swelling. * Life vest mendoza been placed and is being worn by pt. NSTEMI type II secondary to ESRD on HD * Patient is currently chest pain-free. Twelve-lead ECG shows sinus rhythm with no acute ischemic changes. Troponins are mildly elevated, subacute, nonspecific and trending downwards. * Nephrology is following Tobacco use * Cessation encouraged DVT prophylaxis * Heparin SQ LifeVest in place. Outpatient EP consult for PPM. Patient was discharged home cardiology standpoint. Will follow on as-needed basis Patient should follow-up with Dr. Tadeo, [facility] heart specialists at our [place] location on 09/16/2020 at 10:15 AM. Patient should also follow-up with Dr. Joceline Leal, [facility] heart specialists at our [place] location for electrophysiology consult on 09/27/2020 at 10 AM. #[id number] This patient was seen in conjunction with Dr Valdivia who agrees with this assessment and plan of care - Patient Problems (1) Acute respiratory failure Current Visit: Yes Status: Acute Qualifiers: Respiratory failure complication: hypoxia Qualified Code(s): J96.01 - Acute respiratory failure with hypoxia (2) COPD with exacerbation Current Visit: No Status: Acute (3) Acute on chronic HFrEF (heart failure with reduced ejection fraction) Current Visit: Yes Status: Acute (4) Cardiomyopathy Current Visit: Yes Status: Chronic (5) ESRD (end stage renal disease) on dialysis Current Visit: Yes Status: Chronic (6) Acute hyperkalemia Current Visit: Yes Status: Acute (7) DVT prophylaxis Current Visit: Yes Status: Acute (8) Diabetes Current Visit: Yes Status: Chronic (9) HTN (hypertension) Current Visit: Yes Status: Chronic Qualifiers: Hypertension type: essential hypertension Qualified Code(s): I10 - Essential (primary) hypertension (10) NSTEMI (non-ST elevated myocardial infarction) Current Visit: Yes Status: Acute Plan to address problem: Type II Subjective Date of service: 09/01/20 Principal diagnosis: COPD Exacerbation Interval history: Patient is resting in bed currently receiving nebulized breathing treatment. No chest pain overnight. Breath sounds are significantly improved bilaterally. Telemetry reviewed: Sinus rhythm 79. Episode of 3 beat V. tach noted overnight Objective Last Vital Signs Temp 97.6 F 09/01/20 03:58 Pulse 89 09/01/20 08:40 Resp 18 09/01/20 08:40 BP 113/79 09/01/20 03:58 Pulse Ox 93 09/01/20 03:58 - Physical Examination General: No Apparent Distress HEENT: Positive: PERRL, Normocephaly, Mucus Membranes Moist Neck: Positive: neck supple, trachea midline Cardiac: Positive: Reg Rate and Rhythm, S1/S2 Lungs: Positive: Rhonchi, Other (Bilateral breath sounds are significantly improved from previous exam yesterday) Neuro: Positive: Grossly Intact Abdomen: Positive: Soft, Active Bowel Sounds Skin: Negative: Rash, Wound Musculoskeletal: other (Chronic knee pain bilaterally) Extremities: Present: upper extr. pulses, lower extr. pulses - Labs and Meds CBC 09/01/20 Range/Units 05:32 WBC 11.5 H (4.5-11.0) K/mm3 RBC 3.46 L (3.65-5.03) M/mm3 Hgb 13.1 (11.8-15.2) gm/dl Hct 38.8 (35.5-45.6) % Plt Count 135 L (140-440) K/mm3 Comprehensive Metabolic Panel 09/01/20 Range/Units 05:32 Sodium 131 L (137-145) mmol/L Potassium 5.0 (3.6-5.0) mmol/L Chloride 86.5 L (98-107) mmol/L Carbon Dioxide 26 (22-30) mmol/L BUN 105 H (9-20) mg/dL Creatinine 12.1 H (0.8-1.3) mg/dL Glucose 167 H (75-100) mg/dL Calcium 9.4 (8.4-10.2) mg/dL - Imaging and Cardiology EKG: report reviewed, image reviewed Echo: report reviewed (COPD echocardiogram reviewed (08/30/2020): LVEF is 25 to 30%. LV is severely dilated. LV SF is severely decreased. Mild LVH. Severe global hypokinesis of the left ventricle. Mild diastolic dysfunction is present. RV SF is normal. LA is mildly dilated. Severe mitral regurg. RVSP is 19 mmHg. ) - Telemetry EKG Rhythm: Sinus Rhythm - EKG Sinus rhythms and dysrhythmias: sinus rhythm
[2020-09-01] MEDS ORDERED: LOSARTAN 25 MG TAB PO SCH (10:00)
[2020-09-01] MEDS: guaiFENesin ER 600 MG TAB PO SCH (10:00)
[2020-09-01] MEDS ORDERED: METOPROLOL TARTRATE 25 MG TAB PO SCH (10:00)
[2020-09-01] MEDS ORDERED: ASPIRIN 81 MG TAB CHEW PO SCH (10:00)
[2020-09-01] MEDS: IPRATROPIUM/ALBUTEROL SULFATE 3 ML AMPUL.NEB IH SCH ×2 (13:10→16:01)
--- NOTE | 2020-09-01 13:14 | Progress Note ---
Assessment and Plan 1. ESRD: Patient is on maintenance hemodialysis three times a week, MWF schedule. Last outpatient HD 08/27. Avoid nephrotoxic agents. Monitor renal function. Meds dosage based on GFR. Hemodialysis access L FA AVF. Hemodialysis: 08/30, 08/30, 09/01. 2. FEN: Hyperkalemia, improved with HD, monitor. Renal diet. Monitor lytes. 3. COPD exacerbation: Solumedrol, Abx and albuterol. Supplemental O2 as needed. Counseled to quit smoking. 4. H/o systolic CHF. 5. HTN. Monitor BPs. Currently controlled. 6. DM type 2. Monitor blood sugar, controlled. Subjective: Patient was seen and examined at the bedside. No new complaint. Examination: General appearance: well-developed, well-nourished, appears stated age, obese, not in distress, life vest HEENT: ATNC, PERRL, mucous membranes moist, hearing intact, vision intact Neck: neck supple, trachea midline Respiratory: rhonchi heard throughout lung [place] Heart: regular, S1S2, no murmur Abdomen: obese, normoactive bowel sounds, not tender, not distended Integumentary: no rash, warm and dry Neurologic: no focal deficit, no asterixis, alert, oriented x3 Ext: no edema Psychiatric: cooperative Hemodialysis access: L FA AVF Subjective Date of service: 09/01/20 Principal diagnosis: COPD Exacerbation Objective - Vital Signs Vital signs: Vital Signs - 12hr 09/01/20 09/01/20 09/01/20 03:58 08:08 08:40 Temperature 97.6 F Pulse Rate 85 85 Pulse Rate [ 89 Throughout] Respiratory 20 Rate Respiratory 18 Rate [ Throughout] Blood Pressure 113/79 O2 Sat by Pulse 93 Oximetry 09/01/20 09/01/20 09/01/20 09:30 09:45 10:00 Temperature 97.6 F Pulse Rate 71 69 77 Pulse Rate [ Throughout] Respiratory 18 Rate Respiratory Rate [ Throughout] Blood Pressure 111/70 127/60 103/66 O2 Sat by Pulse Oximetry 09/01/20 09/01/20 09/01/20 10:15 10:30 10:45 Temperature Pulse Rate 79 74 76 Pulse Rate [ Throughout] Respiratory Rate Respiratory Rate [ Throughout] Blood Pressure 108/55 121/45 105/63 O2 Sat by Pulse Oximetry 09/01/20 09/01/20 09/01/20 11:00 11:15 11:30 Temperature Pulse Rate 72 80 77 Pulse Rate [ Throughout] Respiratory Rate Respiratory Rate [ Throughout] Blood Pressure 126/64 123/36 118/53 O2 Sat by Pulse Oximetry 09/01/20 09/01/20 09/01/20 11:45 12:00 12:15 Temperature Pulse Rate 75 76 80 Pulse Rate [ Throughout] Respiratory Rate Respiratory Rate [ Throughout] Blood Pressure 103/72 108/70 133/72 O2 Sat by Pulse Oximetry - Lab 09/01/20 05:32 09/01/20 05:32 Most recent lab results Calcium 9.4 mg/dL (8.4-10.2) 09/01/20 05:32 Magnesium 2.00 mg/dL (1.7-2.3) 09/01/20 05:32 Medications & Allergies - Medications Allergies/Adverse Reactions: Allergies No Known Allergies Allergy (Verified 08/29/20 21:45) Home Medications: Home Medications Medication Instructions Recorded Confirmed Last Taken Type Ipratropium/Albuterol Sulfate 1 ampul IH Q6HRT #30 ampul.neb 04/22/19 08/30/20 1 Day Ago Rx [DUONEB *Not for PRN Use*] ~08/29/20 Acyclovir [Zovirax Tab] 800 mg PO Q12H 08/30/20 08/30/20 1 Day Ago History ~08/29/20 Sucroferric Oxyhydroxide(Nf) 1 mg PO AC 08/30/20 08/31/20 1 Day Ago History [Velphoro (Nf)] ~08/29/20 Vit B Comp No.3/Folic/C/Biotin 1 each PO DAILY 08/30/20 08/31/20 1 Day Ago History [Nephro-[place] Rx Tablet] ~08/29/20 carvediloL [Coreg] 6.25 mg PO BID 08/30/20 08/30/20 08/30/20 History Budesonide/Formoterol Fumarate 10.2 gm IH BID #1 hfa.aer.ad 09/01/20 Unknown Rx [Symbicort 160-4.5 Mcg Inhaler] predniSONE 10 mg PO QDAY 3 Days #3 tab 09/01/20 Unknown Rx predniSONE [Deltasone] 20 mg PO DAILY 3 Days #3 tablet 09/01/20 Unknown Rx predniSONE [Deltasone] 40 mg PO QDAY 3 Days #6 tab 09/01/20 Unknown Rx Active Medications: Generic Name Dose Route Start Last Admin Trade Name Freq PRN Reason Stop Dose Admin Acetaminophen 650 mg 08/30/20 00:19 Acetaminophen 325 Mg Tab PO Q4H PRN Pain MILD(1-3)/Fever >100.5/ABERNATHY Albuterol/Ipratropium 1 ampul 09/01/20 12:00 Ipratropium/Albuterol Sulfate 3 Ml Ampul.Neb IH QIDRT JOSE Aspirin 81 mg 09/01/20 10:00 Aspirin 81 Mg Tab Chew PO QDAY JOSE Atorvastatin Calcium 40 mg 08/31/20 22:00 08/31/20 23:21 Atorvastatin 40 Mg Tab PO 40 mg QHS JOSE Administration Budesonide 0.5 mg 08/30/20 20:00 09/01/20 08:39 Budesonide 0.5 Mg/2 Ml Nebu IH 0.5 mg Q12HRT JOSE Administration Dextrose 0 ml 08/30/20 00:19 Dextrose 50% In Water (25gm) 50 Ml Syringe IV Q30MIN PRN Hypoglycemia Protocol Guaifenesin 600 mg 08/30/20 22:00 08/31/20 23:21 Guaifenesin Er 600 Mg Tab PO 600 mg BID JOSE Administration Heparin Sodium (Porcine) 2,000 unit 08/29/20 23:44 Heparin 10,000 Units/10 Ml Vial IV FRANSISCO PRN hemodialysis Heparin Sodium (Porcine) 5,000 unit 08/30/20 06:00 09/01/20 07:15 Heparin 5,000 Unit/1 Ml Vial SUB-Q 5,000 unit Q8HR [facility] Administration Sodium Chloride 100 mls @ 999 mls/hr 08/29/20 23:44 Nacl 0.9% IV FRANSISCO PRN Hypotension Insulin Human Lispro 0 unit 08/30/20 07:30 08/31/20 23:29 Insulin Lispro 100 Unit/Ml SUB-Q Not Given ACHS [facility] Protocol Levofloxacin 500 mg 08/31/20 22:00 08/31/20 23:21 Levofloxacin 500 Mg Tab PO 09/06/20 22:01 500 mg Q48H JOSE Administration Protocol Losartan Potassium 12.5 mg 09/01/20 10:00 Losartan 25 Mg Tab PO QDAY [facility] Magnesium Hydroxide 30 ml 08/30/20 00:19 Magnesium Hydroxide (Mom) Oral Liqd Udc PO Q4H PRN Constipation Methylprednisolone Sodium Succinate 40 mg 08/30/20 06:00 09/01/20 07:15 Methylprednisolone Sod Succinate 40 Mg/1 Ml Inj IV 40 mg Q8HR JOSE Administration Metoprolol Tartrate 50 mg 09/01/20 10:00 Metoprolol Tartrate 25 Mg Tab PO BID [facility] Miscellaneous Medication 1 mg 09/01/20 09:20 Sucroferric Oxyhydroxide(Nf) PO AC [facility] Morphine Sulfate 2 mg 08/30/20 00:19 Morphine 2 Mg/1 Ml Inj IV Q4H PRN Pain, Moderate (4-6) Morphine Sulfate 2 mg 08/30/20 00:19 Morphine 2 Mg/1 Ml Inj IV Q5MIN PRN Chest Pain unrelieved by NTG Ondansetron HCl 4 mg 08/30/20 00:19 Ondansetron 4 Mg/2 Ml Inj IV Q8H PRN Nausea And Vomiting Sodium Chloride 10 ml 08/30/20 10:00 08/31/20 23:29 Sodium Chloride 0.9% 10 Ml Flush Syringe IV 10 ml BID JOSE Administration Sodium Chloride 10 ml 08/30/20 00:19 Sodium Chloride 0.9% 10 Ml Flush Syringe IV PRN PRN LINE FLUSH
--- NOTE | 2020-09-01 14:24 | Discharge Summary ---
Providers - Providers Date of Admission: 08/30/20 00:00 Date of discharge: 09/01/20 Attending physician: ION HARVEY MD 08/29/20 23:39 Consult to Physician [CONS] Stat Comment: Dr. Landeros spoke with Dr. Vásquez @ [phone] Consulting Provider: FELICIA VÁSQUEZ Physician Instructions: Reason For Exam: End-stage renal disease needing dialysis 08/30/20 00:21 Consult to Dietitian/Nutrition [CONS] Routine Physician Instructions: Reason For Exam: Reason for Consult: Diet education 08/31/20 08:00 Consult to Physician [CONS] Routine Comment: Consulting Provider: HEAVEN AGRAWAL Physician Instructions: Reason For Exam: 24 beats V-tach on tele 08/31/20 12:07 Consult to Physician [CONS] Routine Comment: Consulting Provider: MARITZA DORMAN Physician Instructions: Reason For Exam: copd exacerbation Primary care physician: REGISTERED NURSE RENAL Hospitalization Condition: Good Hospital course: 65-year-old -[place] male with past medical history as below who presents with lip and tongue swelling. ESRD needing dialysis Current Visit: Yes Status: Acute Plan to address problem: Nephrology consulted Continue hemodialysis as scheduled Chronic systolic heart failure Cardiology consulted LVEF 25% LifeVest has been placed, patient follow-up with cardiology Ventricular tachycardia Telemetry reviewed Cardiology consulted Patient to have a LifeVest at the time of discharge Acute hyperkalemia Current Visit: Yes Status: Acute Plan to address problem: Patient has had insulin and glucose, calcium chloride emergency room. Continue to monitor with dialysis COPD exacerbation Current Visit: No Status: Acute Plan to address problem: Breathing treatments Levaquin antibiotics every 48 Steroids 40 mg every 8 breathing is improved, discharged on prednisone taper and continue breathing treatments at home Acute respiratory distress Current Visit: No Status: Acute Plan to address problem: Patient satting at room air, no oxygen requirements Oxygen supplementation as required Continue antibiotics and steroids Covid swab pending Diabetes Current Visit: No Status: Acute Plan to address problem: Insulin sliding scale, expect elevated blood glucose secondary to steroids HTN (hypertension) Current Visit: No Status: Chronic Qualifiers: Hypertension type: essential hypertension Qualified Code(s): I10 - Essential (primary) hypertension Plan to address problem: Continue carvedilol Interval history: 08/31/2020: Patient seen and examined, continues to have a cough, no shortness of breath, no respiratory distress, family at the bedside, all questions answered. Spoke with case management, will get Covid test. In addition, was informed that patient had 24 beats of V. tach, telemetry reviewed, cardiology consulted. 09/01/2020: Patient seen and examined, patient has LifeVest, coughing has subsided, patient's breathing is improved dramatically. Spoke with the , patient will be discharged home with appropriate medications, patient is to use Symbicort daily and albuterol nebulizer as needed. Patient should follow-up with Dr. Tadeo, [facility] at our [place] location on 09/16/2020 at 10:15 AM. Patient should also follow-up with Dr. Joceline Leal, [facility] at our [place] location for electrophysiology consult on 09/27/2020 at 10 AM. #[id number] Disposition: [id number] TO HOME OR SELFCARE Final Discharge Diagnosis (Prints w/discharge instructions): End-stage renal disease. Chronic systolic heart failure. Ventricular tachycardia. Acute hyperkalemia. COPD exacerbation. Acute respiratory distress with hypoxemia. Diabetes mellitus type 2 with hyperglycemia. Hypertension Core Measure Documentation - Palliative Care Palliative Care/ Comfort Measures: Not Applicable - Core Measures Any of the following diagnoses?: none Exam - Physical Exam Narrative exam: General appearance: no acute distress, well-nourished EENT: PERRL, EOM intact, hearing intact, clear oral mucosa, no lip swelling Neck: Present: supple, normal ROM Respiratory: No wheezing or rhonchi or rales heard bilaterally Cardiovascular: LifeVest in place, regular rate/rhythm, Normal S1 & S2. No gallop, rub Extremities: AV fistula in left arm, no ischemia, No edema, normal temperature, normal color, Full ROM Abdominal: soft, no tenderness, non-distended, normal bowel sounds Integumentary: Present: clear, warm, dry no wounds, no erythema noted Psychiatric: appropriate mood/affect, intact judgment & insight Neurologic: CNII-XII intact, moves all extremities, no sensory or motor abnormalities - Constitutional Vitals: Temp Pulse Resp BP Pulse Ox 97.6 F 75 18 133/72 93 09/01/20 09:30 09/01/20 13:10 09/01/20 13:10 09/01/20 12:15 09/01/20 03:58 Plan Activity: no restrictions Diet: low salt, renal Care Plan Goals: Patient should follow-up with Dr. Tadeo, [facility] at our [place] location on 09/16/2020 at 10:15 AM. Patient should also follow-up with Dr. Joceline Leal, [facility] at our [place] location for electrophysiology consult on 09/27/2020 at 10 AM. #[id number] Plan of Treatment: Please take your Symbicort 2 puffs daily every 12 hours even if you feel as if you are breathing well. This will help you to prevent having any respiratory distress in the future. Follow up with: PRIMARY CARE,MD [Primary Care Provider] - 3-5 Days Prescriptions: predniSONE [Deltasone] 40 mg PO QDAY 3 Days #6 tab predniSONE [Deltasone] 20 mg PO DAILY 3 Days #3 tablet predniSONE 10 mg PO QDAY 3 Days #3 tab Budesonide/Formoterol Fumarate [Symbicort 160-4.5 Mcg Inhaler] 10.2 gm IH BID #1 hfa.aer.ad
--- NOTE | 2020-09-01 14:27 | Electrocardiograph Report ---
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
[2020-09-01 15:24] VITALS: BP 104/71
== END 2020-09-01 16:03 | disposition home or self-care (01) | DRG 280 ==
LOC: ED 18:01 → 4A 08-30
PROVIDERS: ADMIT Internal Medicine Geriatric Medicine; ATTEND Family Medicine
PROC: 5A1D70Z Performance of Urinary Filtration, Intermittent, Less than 6 Hours Per Day (ICD-10-PCS; principal; 2020-08-30)
PROC: 5A1D70Z Performance of Urinary Filtration, Intermittent, Less than 6 Hours Per Day (ICD-10-PCS; 2020-09-01)
DX: I13.2 Hypertensive heart and chronic kidney disease with heart failure and with stage 5 chronic kidney disease, or end stage renal disease (principal); J96.00 Acute respiratory failure, unspecified whether with hypoxia or hypercapnia; I21.A1 Myocardial infarction type 2; N18.6 End stage renal disease; I50.23 Acute on chronic systolic (congestive) heart failure; J44.1 Chronic obstructive pulmonary disease with (acute) exacerbation; E87.5 Hyperkalemia; I42.9 Cardiomyopathy, unspecified; I42.8 Other cardiomyopathies; R77.8 Other specified abnormalities of plasma proteins; E11.22 Type 2 diabetes mellitus with diabetic chronic kidney disease; M19.90 Unspecified osteoarthritis, unspecified site; F17.200 Nicotine dependence, unspecified, uncomplicated; J45.909 Unspecified asthma, uncomplicated; E66.01 Morbid (severe) obesity due to excess calories; M10.9 Gout, unspecified; E11.65 Type 2 diabetes mellitus with hyperglycemia; Z99.2 Dependence on renal dialysis; Z79.899 Other long term (current) drug therapy; Z79.891 Long term (current) use of opiate analgesic; Z79.01 Long term (current) use of anticoagulants
CPT/HCPCS: 36415; 71045; 80048; 80061; 80074; 80076; 82962; 83735; 84484; 85007; 85025; 85027; 85610; 85730; 87040; 93005; 93306; 94640; 96365; 96372; 96375; 96376; 99406; G0378; J1644; J1815; J1956; J2920; J2930

== ENCOUNTER 2020-11-02 15:58 | Observation (INO) | payer MEDICARE ==
--- NOTE | 2020-11-02 17:54 | Event Note ---
ED Screening Note ED Screening Note: Patient is a 65-year-old male presents emergency room complaints of a left gluteal abscess Patient has a history of end-stage renal disease on dialysis Chaperoned by ADEOLA Zuniga There is a obvious abscess to the left gluteal region, possible extension into the perineum, no obvious scrotal involvement Discussed with Dr. Landeros who advised to order CT abdomen pelvis without contrast to characterize fluid collection This initial assessment/diagnostic orders/clinical plan/treatment(s) is/are subject to change based on patients health status, clinical progression and re- assessment by fellow clinical providers in the ED. Further treatment and workup at subsequent clinical providers discretion. Patient/guardian urged not to elope from the ED as their condition may be serious if not clinically assessed and managed. Initial orders include: labs, CT
[2020-11-02 19:02] LABS: Albumin 4.1 g/dL (3.9-5); Calcium 10.9 mg/dL (8.4-10.2)
[2020-11-02 19:05] LABS: Basophils % (Auto) 0.3 % (0.0-1.8); Eosinophils # (Auto) 0.1 K/mm3 (0.0-0.4); Eosinophils % (Auto) 0.4 % (0.0-4.3); Hematocrit 40.8 % (35.5-45.6); Hemoglobin 13.8 gm/dl (11.8-15.2); Lymphocytes # (Auto) 0.6 K/mm3 (1.2-5.4); Lymphocytes % (Auto) 4.1 % (13.4-35.0); Mean Corpuscular HGB Conc 34 % (32-34); Mean Corpuscular Volume 116 fl (84-94); Monocytes # (Auto) 1.2 K/mm3 (0.0-0.8); Monocytes % (Auto) 7.9 % (0.0-7.3); Platelet Count 146 K/mm3 (140-440); Red Cell Distribution Width 14.6 % (13.2-15.2)
--- NOTE | 2020-11-02 19:08 | Cat Scan Report ---
CT ABDOMEN AND PELVIS WITHOUT CONTRAST INDICATION: left gluteal abscess, r/o perirectal/perineum. TECHNIQUE: Axial CT images were obtained through the abdomen and pelvis without IV contrast. All CT scans at [facility] location are performed using CT dose reduction for ALARA by means of automated exposure control. COMPARISON: None available. FINDINGS: LOWER CHEST: No significant abnormality. LIVER: No significant abnormality. GALLBLADDER: Several tiny dependent gallstones without cholecystitis. BILE DUCTS: No significant abnormality. PANCREAS: No significant abnormality. SPLEEN: No significant abnormality. ADRENALS: No significant abnormality. RIGHT KIDNEY and URETER: Atrophic kidney with several acquired cysts LEFT KIDNEY and URETER: Atrophic kidney with several acquired cysts. STOMACH and SMALL BOWEL: No significant abnormality. COLON: No significant abnormality. APPENDIX: No significant abnormality. PERITONEUM: No free fluid. No free air. No fluid collection. LYMPH NODES: No significant adenopathy. AORTA and ARTERIES: Moderate vascular calcifications nonaneurysmal aorta. IVC and VEINS: No significant abnormality. URINARY BLADDER: No significant abnormality. REPRODUCTIVE ORGANS: No significant abnormality. ADDITIONAL FINDINGS: Skin induration left ischiorectal fossa/medial upper thigh, incompletely visuali zed likely secondary to cellulitis. SKELETAL SYSTEM: No significant abnormality. IMPRESSION: 1. Incompletely visualized cellulitis left ischiorectal fossa. If warranted clinically, dedicated lef t femur CT could be performed for further evaluation in order to exclude more distal abscess. No soft tissue gas. 2. Cholelithiasis 3. Atrophic kidneys with multiple small acquired cysts Signer Name: Edwin Gonzalez MD Signed: 11/02/2020 7:03 PM Workstation Name: [id number]
[2020-11-02 19:54] LABS: Red Blood Count 3.51 M/mm3 (3.65-5.03)
[2020-11-02] MEDS ORDERED: PIPERACIL/TAZOBACTA 4.5/NS 100 4.5 GM/100 ML VIAL IV ONE (21:33)
[2020-11-02] MEDS ORDERED: VANCOMYCIN 1,500 MG in SODIUM CHLORIDE 0.9% 500 ML 500 ML IV ONE (21:33)
[2020-11-02] MEDS ORDERED: CLINDAMYCIN 600 MG/50 mL 600 MG/50 ML BAG IV ONE (21:33)
[2020-11-02] MEDS ORDERED: VANCOMYCIN PHARMACY TO DOSE IV SCH (22:00)
[2020-11-02] MEDS ORDERED: IPRATROPIUM/ALBUTEROL SULFATE 3 ML AMPUL.NEB IH ONE (22:03)
--- NOTE | 2020-11-02 22:06 | Emergency Department Report ---
HPI - General Chief Complaint: Skin/Abscess/Foreign Body Time Seen by Provider: 11/02/20 17:35 - HPI HPI: 65-year-old male with complex medical history including COPD, CHF and ESRD on HD MWF presents sent by an urgent care for a left thigh abscess/infection. Patient states that approximately 1 week ago it started as a boil on his left inner upper thigh. He says over the course of last week it expanded and became very painful over the last 2 days. He went to an urgent care clinic today but was referred to the emergency department given the location and extensiveness of his thigh swelling/suspected infection. Other than pain at the site of the upper inner thigh and lower buttock he denies any other symptoms or complaints including fever/chills, headache, vision change, chest pain, shortness of breath, cough, abdominal pain, nausea/vomiting, back pain, focal weakness, sensory changes, or any other complaints. The patient states that he has very sore bilateral knees which has been ongoing for 10 years. His last dialysis was yesterday. He is vaccinated against COVID-19. ED Past Medical Hx - Past Medical History Hx Hypertension: Yes Hx Heart Attack/AMI: No Hx Congestive Heart Failure: Yes Hx Diabetes: Yes Hx Deep Vein Thrombosis: No Hx Pulmonary Embolism: No Hx Liver Disease: No Hx Renal Disease: Yes (dialysis m, w, f) Hx Arthritis: Yes Hx Kidney Stones: No Hx Asthma: No Hx COPD: Yes Hx Tuberculosis: No Hx HIV: No Additional medical history: gout - Surgical History Hx Coronary Stent: No Hx Pacemaker: No Hx Internal Defibrillator: No Hx Appendectomy: Yes Additional Surgical History: fistula left forearm - Social History Smoking Status: Current Every Day Smoker - Medications Home Medications: Home Medications Medication Instructions Recorded Confirmed Last Taken Type Ipratropium/Albuterol Sulfate 1 ampul IH Q6HRT #30 ampul.neb 04/22/19 08/30/20 1 Day Ago Rx [DUONEB *Not for PRN Use*] ~08/29/20 Acyclovir [Zovirax Tab] 800 mg PO Q12H 08/30/20 08/30/20 1 Day Ago History ~08/29/20 Sucroferric Oxyhydroxide(Nf) 1 mg PO AC 08/30/20 08/31/20 1 Day Ago History [Velphoro (Nf)] ~08/29/20 Vit B Comp No.3/Folic/C/Biotin 1 each PO DAILY 08/30/20 08/31/20 1 Day Ago History [Nephro-[place] Rx Tablet] ~08/29/20 carvediloL [Coreg] 6.25 mg PO BID 08/30/20 08/30/20 08/30/20 History Budesonide/Formoterol Fumarate 10.2 gm IH BID #1 hfa.aer.ad 09/01/20 Unknown Rx [Symbicort 160-4.5 Mcg Inhaler] predniSONE 10 mg PO QDAY 3 Days #3 tab 09/01/20 Unknown Rx predniSONE [Deltasone] 20 mg PO DAILY 3 Days #3 tablet 09/01/20 Unknown Rx predniSONE [Deltasone] 40 mg PO QDAY 3 Days #6 tab 09/01/20 Unknown Rx ED Review of Systems ROS: Stated complaint: LT LEG ABCESS Other details as noted in HPI Constitutional: denies: chills, fever Eyes: denies: eye pain, vision change ENT: denies: throat pain, congestion Respiratory: denies: cough, shortness of breath Cardiovascular: denies: chest pain, palpitations Gastrointestinal: denies: abdominal pain, nausea, vomiting Genitourinary: denies: discharge, testicular pain Musculoskeletal: denies: back pain Skin: other (swelling/abscess of thigh). denies: rash Neurological: denies: headache, weakness, numbness Hematological/Lymphatic: denies: easy bleeding Physical Exam - Physical Exam Vital Signs: Vital Signs 11/02/20 18:13 Temperature 98.5 F Pulse Rate 105 H Respiratory 16 Rate Blood Pressure 108/54 [Right] O2 Sat by Pulse 93 Oximetry Physical Exam: GENERAL: Well developed and well nourished elderly male. No acute distress HEAD: Normocephalic. No obvious signs of trauma. ENT: Slightly dry mucous membranes. EYES: Extraocular movements are intact. NECK: Supple. Full ROM is intact. Trachea is midline. LUNGS: Slightly tachypneic but in no respiratory distress. equal chest rise bilaterally. Coarse breath sounds throughout. CARDIOVASCULAR: Regular rate and rhythm. No murmurs or rubs. VASCULAR: Cap refill < 2 seconds. Left forearm fistula with bruit present. ABDOMEN: Abdomen is soft and nondistended. There is no significant tenderness, guarding or rebound. SKIN: Skin is warm and dry. To the left medial superior thigh is an extensive area of induration and possible scattered areas of fluctuance which are tender to touch with warmth present. It extends slightly into the rectum area but does not appear to track into the perineum or groin area. Rectal exam was deferred given tenderness and sensitivity of the area. No testicular swelling or tende rness. However, there is purulence seen dripping down the thigh. Unable to visualize the source of purulent drainage at this time given extensive adiposity and the fact that the patient was examined in a small room off of the acute waiting room because there are no available ER beds at this time. Patient states that between CT scan and now, when he sat down the area burst and drained pus. NEURO: Patient is awake, alert, and oriented. chainstitch pants outseamer II-XII grossly intact. Slow to move but with no focal deficits. Normal motor and sensory exam throughout. Normal speech. MUSCULOSKELETAL: No obvious deformities. Normal ROM throughout. BACK/SPINE: No costovertebral angle tenderness. ED Course Vital Signs 11/02/20 18:13 Temperature 98.5 F Pulse Rate 105 H Respiratory 16 Rate Blood Pressure 108/54 [Right] O2 Sat by Pulse 93 Oximetry ED Medical Decision Making - Lab Data Result diagrams: 11/02/20 18:00 11/02/20 18:00 Lab Results 11/02/20 11/02/20 Range/Units 18:00 18:00 WBC 15.8 H (4.5-11.0) K/mm3 RBC 3.51 L (3.65-5.03) M/mm3 Hgb 13.8 (11.8-15.2) gm/dl Hct 40.8 (35.5-45.6) % MCV 116 H (84-94) fl MCH 40 H (28-32) pg MCHC 34 (32-34) % RDW 14.6 (13.2-15.2) % Plt Count 146 (140-440) K/mm3 Lymph % (Auto) 4.1 L (13.4-35.0) % [place] % (Auto) 7.9 H (0.0-7.3) % Eos % (Auto) 0.4 (0.0-4.3) % Baso % (Auto) 0.3 (0.0-1.8) % Lymph # (Auto) 0.6 L (1.2-5.4) K/mm3 [place] # (Auto) 1.2 H (0.0-0.8) K/mm3 Eos # (Auto) 0.1 (0.0-0.4) K/mm3 Baso # (Auto) 0.0 (0.0-0.1) K/mm3 Seg Neutrophils % 87.3 H (40.0-70.0) % Seg Neutrophils # 13.8 H (1.8-7.7) K/mm3 Sodium 135 L (137-145) mmol/L Potassium 5.6 H (3.6-5.0) mmol/L Chloride 94.0 L (98-107) mmol/L Carbon Dioxide 25 (22-30) mmol/L Anion Gap 22 mmol/L BUN 62 H (9-20) mg/dL Creatinine 10.9 H (0.8-1.3) mg/dL Estimated GFR 6 ml/min BUN/Creatinine Ratio 6 % Glucose 97 (75-100) mg/dL Calcium 10.9 H (8.4-10.2) mg/dL Total Bilirubin 0.70 (0.1-1.2) mg/dL AST 19 (5-40) units/L ALT 17 (7-56) units/L Alkaline Phosphatase 118 (35-129) units/L Total Protein 8.5 H (6.3-8.2) g/dL Albumin 4.1 (3.9-5) g/dL Albumin/Globulin Ratio 0.9 % - Radiology Data CT ABDOMEN AND PELVIS WITHOUT CONTRAST INDICATION: left gluteal abscess, r/o perirectal/perineum. TECHNIQUE: Axial CT images were obtained through the abdomen and pelvis without IV contrast. All CT scans at this location are performed using CT dose reduction for ALARA by means of automated exposure control. COMPARISON: None available. FINDINGS: LOWER CHEST: No significant abnormality. LIVER: No significant abnormality. GALLBLADDER: Several tiny dependent gallstones without cholecystitis. BILE DUCTS: No significant abnormality. PANCREAS: No significant abnormality. SPLEEN: No significant ab normality. ADRENALS: No significant abnormality. RIGHT KIDNEY and URETER: Atrophic kidney with several acquired cysts LEFT KIDNEY and URETER: Atrophic kidney with several acquired cysts. STOMACH and SMALL BOWEL: No significant abnormality. COLON: No significant abnormality. APPENDIX: No significant abnormality. PERITONEUM: No free fluid. No free air. No fluid collection. LYMPH NODES: No significant adenopathy. AORTA and ARTERIES: Moderate vascular calcifications nonaneurysmal aorta. IVC and VEINS: No significant abnormality. URINARY BLADDER: No significant abnormality. REPRODUCTIVE ORGANS: No significant abnormality. ADDITIONAL FINDINGS: Skin induration left ischiorectal fossa/medial upper thigh, incompletely visualized likely secondary to cellulitis. SKELETAL SYSTEM: No significant abnormality. IMPRESSION: 1. Incompletely visualized cellulitis left ischiorectal fossa. If warranted clinically, dedicated left femur CT could be performed for further evaluation in order to exclude more distal abscess. No soft tissue gas. 2. Cholelithiasis 3. Atrophic kidneys with multiple small acquired cysts Signer Name: Edwin Gonzalez MD Signed: 11/02/2020 6:03 PM Workstation Name: [id number] - Medical Decision Making 65-year-old male with complex medical history including ESRD on HD (last HD yesterday, 11/01/2020) presents complaining of worsening and expanding painful abscess to his left medial thigh and rectal area. His last dialysis session was yesterday. 1 week ago he had a boil in the area and it expanded until much of the thigh became very swollen and painful 2 days ago. The patient went to an urgent care clinic today but was sent to the emergency department for further evaluation. No systemic symptoms of infection. He is afebrile and with normal vital signs with the exception of slightly elevated heart rate of 105 and oxygen saturation of 93% which is acceptable given his ongoing COPD. Physical examination reveals extensive area of induration and possible scattered areas of fluctuance which are tender to touch with warmth present in the medial superior left thigh. It extends slightly into the rectum area but does not appear to track into the perineum or groin area. No testicular swelling or tenderness. However, there is purulence seen dripping down the thigh, as the patient had spontaneous expression of purulence when he sat down after his CT scan. Labs were drawn in triage and reveal leukocytosis with white blood cell count of 15.8. Hemoglobin is 13.8. Chemistry panel is as expected in ESRD with no significant electrolyte abnormalities. CT of the abdomen pelvis was performed without contrast and was read as showing incomplete visualization of left ischio rectal fossa cellulitis with caveat that there may still be abscess more distal in the thigh. Before obtaining further imaging we will consult general surgery . We will send blood cultures and give broad-spectrum IV vancomycin, Zosyn, and clindamycin. At 10:20 PM I spoke with Dr. Ash of general surgery regarding the case. She agrees with current management with those antibiotics and says she does not recommend further imaging at this time but will come and evaluate the patient in the morning and determine further steps at that time. The likely diagnosis and need for admission for IV antibiotics and general surgery consultation was discussed with the patient who expressed understanding and agreement with the plan of care. At 10:30 PM I spoke with nurse practitioner Jade working in conjunction with the on-call hospitalist Dr. Veronica regarding the case. The patient is accepted for admission and the hospitalist team will assume care. Critical Care Time: Yes Critical care time in (mins) excluding proc time.: 35 Critical care attestation.: If time is entered above; I have spent that time in minutes in the direct care of this critically ill patient, excluding procedure time. Critical care time was spent in the evaluation/assessment, work-up, and management of possible severe infection and abscess requiring IV antibiotics, CT scan and consultation with specialist, along with reevaluation and reassessment ED Disposition Clinical Impression: Ischiorectal abscess, Cellulitis of right thigh, ESRD (end stage renal disease) on dialysis COPD (chronic obstructive pulmonary disease) Qualifiers: Emphysema type: unspecified Disposition: 09 ADMITTED INPATIENT Is pt being admited?: Yes Condition: Fair
[2020-11-02] MEDS ORDERED: VANCOMYCIN 2,000 MG in SODIUM CHLORIDE 0.9% 500 ML 500 ML IV ONE (22:15)
[2020-11-02] MEDS ORDERED: ONDANSETRON 4 MG/2 ML INJ IV PRN (22:35)
[2020-11-02] MEDS ORDERED: ACETAMINOPHEN 325 MG TAB PO PRN (22:35)
[2020-11-02] MEDS ORDERED: oxyCODONE /ACETAMINOPHEN 5-325MG TAB PO PRN (22:37)
[2020-11-02] MEDS ORDERED: ALBUTEROL 2.5 MG/3 ML NEBU IH PRN (22:37)
[2020-11-02] MEDS ORDERED: DEXTROSE 50% IN WATER (25GM) 50 ML SYRINGE IV PRN (22:37)
[2020-11-02] MEDS ORDERED: NALOXONE 0.4 MG/1 ML INJ IV PRN (22:37)
[2020-11-02] MEDS ORDERED: SODIUM BICARB 8.4% 50 MEQ/50 ML SYRINGE IV ONE (22:40)
[2020-11-02] MEDS ORDERED: INSULIN REGULAR, HUMAN 100 UNITS/1 ML SUB-Q ONE (22:41)
[2020-11-02] MEDS ORDERED: cefTRIAXone/NS 1 GM/50 ML 1 GM/50 ML BAG IV SCH (23:00)
--- NOTE | 2020-11-02 23:18 | History and Physical Report ---
History of Present Illness Date of examination: 11/02/20 Date of admission: 11/02/20 22:27 Chief complaint: Left thigh/groin pain secondary to abscess History of present illness: 65-year-old -Spanish male who is an ongoing smoker with history of COPD, CHF with EF 25 to 30%, ESRD on HD (M/W/F), hypertension, obesity, and cardiomyopathy who presents [facility] ED with complaints of left thigh/groin abscess with questionable infection. Patient went to urgent care earlier today after experiencing left thigh pain x1 week. The area in question started out as a sm all pimple, then became bigger and developed into a medium size boil. Additionally he complains of 9/10 sharp/aching pain which is exacerbated by sitting and/or putting any pressure on the area. After being examined by the urgent care provider he was referred to the ED for further evaluation and treatment. Patient states he is fully vaccinated for COVID-19. Denies fever, chills, chest pain, palpitations, acute worsening shortness of breath, headache, nausea, vomiting, diarrhea, constipation, myalgia, malaise, recent sick contacts Past History Past Medical History: COPD, dialysis (m/w/f), ESRD, heart failure (EF 25 to 30% (08/2020)), hypertension, other (Obesity, cardiomyopathy, tobacco use) Past Surgical History: Other (Left forearm AV fistula,) Social history: smoking, full code. denies: alcohol abuse, prescription drug abuse, IV drug use Family history: hypertension Medications and Allergies Allergies Allergy/AdvReac Type Severity Reaction Status Date / Time No Known Allergies Allergy Verified 08/29/20 21:45 Home Medications Medication Instructions Recorded Confirmed Last Taken Type Ipratropium/Albuterol Sulfate 1 ampul IH Q6HRT #30 ampul.neb 04/22/19 08/30/20 1 Day Ago Rx [DUONEB *Not for PRN Use*] ~08/29/20 Acyclovir [Zovirax Tab] 800 mg PO Q12H 08/30/20 08/30/20 1 Day Ago History ~08/29/20 Sucroferric Oxyhydroxide(Nf) 1 mg PO AC 08/30/20 08/31/20 1 Day Ago History [Velphoro (Nf)] ~08/29/20 Vit B Comp No.3/Folic/C/Biotin 1 each PO DAILY 08/30/20 08/31/20 1 Day Ago History [Nephro-[place] Rx Tablet] ~08/29/20 carvediloL [Coreg] 6.25 mg PO BID 08/30/20 08/30/20 08/30/20 History Budesonide/Formoterol Fumarate 10.2 gm IH BID #1 hfa.aer.ad 09/01/20 Unknown Rx [Symbicort 160-4.5 Mcg Inhaler] predniSONE 10 mg PO QDAY 3 Days #3 tab 09/01/20 Unknown Rx predniSONE [Deltasone] 20 mg PO DAILY 3 Days #3 tablet 09/01/20 Unknown Rx predniSONE [Deltasone] 40 mg PO QDAY 3 Days #6 tab 09/01/20 Unknown Rx Active Meds: Active Medications Acetaminophen (Acetaminophen 325 Mg Tab) 650 mg PO Q4H PRN PRN Reason: Pain MILD(1-3)/Fever >100.5/ABERNATHY Albuterol (Albuterol 2.5 Mg/3 Ml Nebu) 2.5 mg IH Q3HRT PRN PRN Reason: Shortness Of Breath Budesonide (Budesonide 0.5 Mg/2 Ml Nebu) 0.5 mg IH Q12HRT JOSE Carvedilol (Carvedilol 6.25 Mg Tab) 6.25 mg PO BID [facility] Dextrose (Dextrose 50% In Water (25gm) 50 Ml Syringe) 50 ml IV Q30MIN PRN; Protocol PRN Reason: Hypoglycemia Docusate Sodium (Docusate Sodium 100 Mg Cap) 100 mg PO BID [facility] Heparin Sodium (Porcine) (Heparin 5,000 Unit/1 Ml Vial) 5,000 unit SUB-Q Q12HR [facility] Vancomycin HCl 2,000 mg/ (Sodium Chloride) 540 mls @ 250 mls/hr IV ONCE ONE Stop: 11/03/20 00:24 Insulin Human Lispro (Insulin Lispro 100 Unit/Ml) 0 unit SUB-Q ACHS [facility]; Protocol Multivit/Ca Carb/B Cmplx/FA/Prenat (Folic Acid/Vit B Comp W-C 1 Mg (Renal Caps)) 1 cap PO QDAY [facility] Naloxone HCl (Naloxone 0.4 Mg/1 Ml Inj) 0.1 mg IV Q2MIN PRN PRN Reason: Res Rate </= 8 or 02 SAT < 92% Nicotine (Nicotine 14 Mg/24 Hr Patch) 14 mg TD QDAY JOSE Ondansetron HCl (Ondansetron 4 Mg/2 Ml Inj) 4 mg IV Q6H PRN PRN Reason: Nausea And Vomiting Oxycodone/Acetaminophen (Oxycodone /Acetaminophen 5-325mg Tab) 1 tab PO Q6H PRN PRN Reason: Pain, Moderate (4-6) Sodium Chloride (Sodium Chloride 0.9% 10 Ml Flush Syringe) 10 ml IV BID JOSE Sodium Chloride (Sodium Chloride 0.9% 10 Ml Flush Syringe) 10 ml IV PRN PRN PRN Reason: LINE FLUSH Review of Systems All systems: negative (As noted in HPI) Exam - Physical Exam Narrative exam: Physical exam General appearance: Present: No acute distress, alert and oriented 3, adult male - EENT Eyes: Present: PERRL, EOM intact ENT: hearing intact, missing teeth, poor oral hygiene - Neck Neck: Present: supple, normal ROM - Respiratory Respiratory effort: Non-labored Respiratory: Diminished bases - Cardiovascular Heart rate: 78 (bpm) Rhythm: Sinus Heart Sounds: Present: S1 & S2. Absent: rub, click - Extremities Extremities: no ischemia, pulses intact, Lt FA AVF - Peripheral Assessment Peripheral Pulses: within normal limits - Abdominal General gastrointestinal: obese, soft, non-tender, normal bowel sounds - Integumentary Integumentary: Present: warm, dry - Musculoskeletal Musculoskeletal: Able to move all extremities, amb with cane at baseline -Neurological Neurological: CN II-XII intact - Psychiatric Psychiatric:cooperative - Constitutional Vitals: Temp Pulse Resp BP Pulse Ox 98.5 F 105 H 16 108/54 93 11/02/20 18:13 11/02/20 18:13 11/02/20 18:13 11/02/20 18:13 11/02/20 18:13 Results - Labs CBC & Chem 7: 11/02/20 18:00 11/02/20 18:00 Labs: Laboratory Last Values WBC 15.8 K/mm3 (4.5-11.0) H 11/02/20 18:00 RBC 3.51 M/mm3 (3.65-5.03) L 11/02/20 18:00 Hgb 13.8 gm/dl (11.8-15.2) 11/02/20 18:00 Hct 40.8 % (35.5-45.6) 11/02/20 18:00 MCV 116 fl (84-94) H 11/02/20 18:00 MCH 40 pg (28-32) H 11/02/20 18:00 MCHC 34 % (32-34) 11/02/20 18:00 RDW 14.6 % (13.2-15.2) 11/02/20 18:00 Plt Count 146 K/mm3 (140-440) 11/02/20 18:00 Lymph % (Auto) 4.1 % (13.4-35.0) L 11/02/20 18:00 [place] % (Auto) 7.9 % (0.0-7.3) H 11/02/20 18:00 Eos % (Auto) 0.4 % (0.0-4.3) 11/02/20 18:00 Baso % (Auto) 0.3 % (0.0-1.8) 11/02/20 18:00 Lymph # (Auto) 0.6 K/mm3 (1.2-5.4) L 11/02/20 18:00 [place] # (Auto) 1.2 K/mm3 (0.0-0.8) H 11/02/20 18:00 Eos # (Auto) 0.1 K/mm3 (0.0-0.4) 11/02/20 18:00 Baso # (Auto) 0.0 K/mm3 (0.0-0.1) 11/02/20 18:00 Seg Neutrophils % 87.3 % (40.0-70.0) H 11/02/20 18:00 Seg Neutrophils # 13.8 K/mm3 (1.8-7.7) H 11/02/20 18:00 Sodium 135 mmol/L (137-145) L 11/02/20 18:00 Potassium 5.6 mmol/L (3.6-5.0) H 11/02/20 18:00 Chloride 94.0 mmol/L (98-107) L 11/02/20 18:00 Carbon Dioxide 25 mmol/L (22-30) 11/02/20 18:00 Anion Gap 22 mmol/L 11/02/20 18:00 BUN 62 mg/dL (9-20) H 11/02/20 18:00 Creatinine 10.9 mg/dL (0.8-1.3) H 11/02/20 18:00 Estimated GFR 6 ml/min 11/02/20 18:00 BUN/Creatinine Ratio 6 % 11/02/20 18:00 Glucose 97 mg/dL (75-100) 11/02/20 18:00 Calcium 10.9 mg/dL (8.4-10.2) H 11/02/20 18:00 Total Bilirubin 0.70 mg/dL (0.1-1.2) 11/02/20 18:00 AST 19 units/L (5-40) 11/02/20 18:00 ALT 17 units/L (7-56) 11/02/20 18:00 Alkaline Phosphatase 118 units/L (35-129) 11/02/20 18:00 Total Protein 8.5 g/dL (6.3-8.2) H 11/02/20 18:00 Albumin 4.1 g/dL (3.9-5) 11/02/20 18:00 Albumin/Globulin Ratio 0.9 % 11/02/20 18:00 - Imaging and Cardiology Imaging and Cardiology: CT Abd/Pelvis: IMPRESSION: 1. Incompletely visualized cellulitis left ischiorectal fossa. If warranted clinically, dedicated left femur CT could be performed for further evaluation in order to exclude more distal abscess. No soft tissue gas. 2. Cholelithiasis 3. Atrophic kidneys with multiple small acquired cysts Assessment and Plan Assessment and plan: Left thigh/groin cellulitis with abscess -CT abdomen pelvis shows Incompletely visualized cellulitis left ischiorectal fossa -cultures pending -Received IV Clinda, vancomycin, Zosyn in ED -Continue IV vancomycin and Zosyn -General surgery (Dr. Ash) consulted with plan to see patient in a.m. -Pain management -Supportive care Leukocytosis -WBC on admission 15.8 -Likely secondary to left thigh/groin cellulitis -Afebrile -Cultures pending -On IV ABX -Continue to monitor CBC Hyperkalemia -Potassium 5.6 on admission -Hyperkalemia cocktail ordered -Follow-up on labs ESRD on HD -M/W/F -Last dialyzed yesterday (11/01/2020, [facility] dialysis clinic in [place]) -Avoid nephrotoxin agents -Renal dose all meds -Nephrology ( Dr. Beyer) consulted for HD management History of COPD -Moderate to severe -Schedule duo nebs and Pulmicort, albuterol as needed History of systolic heart failure -EF 5% seen on echo (08/31/2020) -Follows Dr. Tadeo ([facility]) as outpatient -On continuous remote telemetry monitoring -Resume home meds HTN -Monitor BP -Resume home hypertensive meds DM2 -POC BG monitoring -SSI coverage prn -HgbA1C pending Tobacco abuse -Current every day smoker -Counseled for cessation -Nicotine patch when necessary DVT PPX -on Heparin Advance Directives: No VTE prophylaxis?: Chemical, Mechanical Plan of care discussed with patient/family: Yes
[2020-11-02] MEDS ORDERED: DEXTROSE 50% IN WATER (25GM) 50 ML SYRINGE IV ONE (23:30)
[2020-11-02] MEDS ORDERED: CALCIUM GLUCONATE 1,000 MG in SODIUM CHLORIDE 0.9% 100 ML IV ONE (23:30)
[2020-11-02] MEDS ORDERED: PIPERACIL/TAZOBACTA 4.5/NS 100 4.5 GM/100 ML VIAL IV SCH (23:45)
[2020-11-03] MEDS: PIPERACIL-TAZO 2.25 GM/50 ML 2.25 GM/50 ML BAG IV SCH ×2 (08:15→15:20)
--- NOTE | 2020-11-03 09:37 | Progress Note ---
Assessment and Plan Assessment and plan: Left thigh/groin cellulitis with abscess -CT abdomen pelvis shows Incompletely visualized cellulitis left ischiorectal fossa -General surgery (Dr. Ash) consulted -Pain management -Supportive care Sepsis. -Present on admission. Patient meets criteria given the tachycardia, leukocytosis and diagnosis of cellulitis. Hyperkalemia -Potassium 5.6 on admission -Hyperkalemia cocktail ordered -Follow-up on labs ESRD on HD -M/W/F -Avoid nephrotoxin agents -Renal dose all meds -Nephrology ( Dr. Beyer) consulted for HD management History of COPD -Moderate to severe -Schedule duo nebs and Pulmicort, albuterol as needed Chronic systolic heart failure. Compensated -EF 20-25% seen on echo (08/31/2020) -Follows Dr. Tadeo ([facility]) as outpatient HTN -Monitor BP -Resume home hypertensive meds DM2 -POC BG monitoring -SSI coverage prn -HgbA1C pending Tobacco abuse -Current every day smoker -Counseled for cessation -Nicotine patch when necessary DVT PPX -on Heparin 11/03/2020. Await surgery consultation for left thigh abscess/cellulitis. Continue IV antibiotics. Consult ID for further evaluation. Continue hemodialysis per nephrology recommendations History Interval history: No new issues overnight. Hospitalist Physical - Constitutional Vitals: Temp Pulse Resp BP Pulse Ox 98.8 F 87 22 97/67 91 11/03/20 08:23 11/03/20 08:23 11/03/20 08:23 11/03/20 08:23 11/03/20 08:23 General appearance: Present: no acute distress, well-nourished - EENT Eyes: Present: PERRL, EOM intact ENT: hearing intact, clear oral mucosa, dentition normal - Neck Neck: Present: supple, normal ROM - Respiratory Respiratory effort: normal Respiratory: bilateral: CTA - Cardiovascular Rhythm: regular Heart Sounds: Present: S1 & S2. Absent: gallop, rub - Extremities Extremities: no ischemia, No edema, Full ROM - Abdominal General gastrointestinal: soft, non-tender, non-distended, normal bowel sounds - Integumentary Integumentary: Present: clear, warm, dry - Neurologic Neurologic: CNII-XII intact, moves all extremities Results - Labs CBC & Chem 7: 11/02/20 18:00 11/03/20 01:01 Labs: Laboratory Last Values WBC 15.8 K/mm3 (4.5-11.0) H 11/02/20 18:00 RBC 3.51 M/mm3 (3.65-5.03) L 11/02/20 18:00 Hgb 13.8 gm/dl (11.8-15.2) 11/02/20 18:00 Hct 40.8 % (35.5-45.6) 11/02/20 18:00 MCV 116 fl (84-94) H 11/02/20 18:00 MCH 40 pg (28-32) H 11/02/20 18:00 MCHC 34 % (32-34) 11/02/20 18:00 RDW 14.6 % (13.2-15.2) 11/02/20 18:00 Plt Count 146 K/mm3 (140-440) 11/02/20 18:00 Lymph % (Auto) 4.1 % (13.4-35.0) L 11/02/20 18:00 [place] % (Auto) 7.9 % (0.0-7.3) H 11/02/20 18:00 Eos % (Auto) 0.4 % (0.0-4.3) 11/02/20 18:00 Baso % (Auto) 0.3 % (0.0-1.8) 11/02/20 18:00 Lymph # (Auto) 0.6 K/mm3 (1.2-5.4) L 11/02/20 18:00 [place] # (Auto) 1.2 K/mm3 (0.0-0.8) H 11/02/20 18:00 Eos # (Auto) 0.1 K/mm3 (0.0-0.4) 11/02/20 18:00 Baso # (Auto) 0.0 K/mm3 (0.0-0.1) 11/02/20 18:00 Seg Neutrophils % 87.3 % (40.0-70.0) H 11/02/20 18:00 Seg Neutrophils # 13.8 K/mm3 (1.8-7.7) H 11/02/20 18:00 Sodium 135 mmol/L (137-145) L 11/02/20 18:00 Potassium 5.3 mmol/L (3.6-5.0) H 11/03/20 01:01 Chloride 94.0 mmol/L (98-107) L 11/02/20 18:00 Carbon Dioxide 25 mmol/L (22-30) 11/02/20 18:00 Anion Gap 22 mmol/L 11/02/20 18:00 BUN 62 mg/dL (9-20) H 11/02/20 18:00 Creatinine 10.9 mg/dL (0.8-1.3) H 11/02/20 18:00 Estimated GFR 6 ml/min 11/02/20 18:00 BUN/Creatinine Ratio 6 % 11/02/20 18:00 Glucose 97 mg/dL (75-100) 11/02/20 18:00 Hemoglobin A1c 4.5 % (4-6) 11/02/20 23:20 Calcium 10.9 mg/dL (8.4-10.2) H 11/02/20 18:00 Total Bilirubin 0.70 mg/dL (0.1-1.2) 11/02/20 18:00 AST 19 units/L (5-40) 11/02/20 18:00 ALT 17 units/L (7-56) 11/02/20 18:00 Alkaline Phosphatase 118 units/L (35-129) 11/02/20 18:00 Total Protein 8.5 g/dL (6.3-8.2) H 11/02/20 18:00 Albumin 4.1 g/dL (3.9-5) 11/02/20 18:00 Albumin/Globulin Ratio 0.9 % 11/02/20 18:00 Microbiology: Microbiology 11/02/20 23:13 Peripheral/Venous Blood Culture - Preliminary Culture in Progress 11/02/20 23:20 Peripheral/Venous Blood Culture - Preliminary Culture in Progress Active Medications - Current Medications Current Medications: Generic Name Dose Route Start Last Admin Trade Name Freq PRN Reason Stop Dose Admin Acetaminophen 650 mg 11/02/20 22:35 Acetaminophen 325 Mg Tab PO Q4H PRN Pain MILD(1-3)/Fever >100.5/ABERNATHY Albuterol 2.5 mg 11/02/20 22:37 Albuterol 2.5 Mg/3 Ml Nebu IH Q3HRT PRN Shortness Of Breath Budesonide 0.5 mg 11/03/20 08:00 Budesonide 0.5 Mg/2 Ml Nebu IH Q12HRT [facility] Carvedilol 6.25 mg 11/03/20 10:00 Carvedilol 6.25 Mg Tab PO BID [facility] Dextrose 50 ml 11/02/20 22:37 Dextrose 50% In Water (25gm) 50 Ml Syringe IV Q30MIN PRN Hypoglycemia Protocol Docusate Sodium 100 mg 11/03/20 10:00 Docusate Sodium 100 Mg Cap PO BID [facility] Heparin Sodium (Porcine) 5,000 unit 11/03/20 10:00 Heparin 5,000 Unit/1 Ml Vial SUB-Q Q12HR [facility] Piperacillin Sod/Tazobactam Sod 2.25 gm in 50 mls @ 100 mls/hr 11/03/20 08:00 Zosyn/Ns 2.25 Gm/50ml IV Q8H [facility] Protocol Insulin Human Lispro 0 unit 11/03/20 07:30 Insulin Lispro 100 Unit/Ml SUB-Q ACHS [facility] Protocol Multivit/Ca Carb/B Cmplx/FA/Prenat 1 cap 11/03/20 10:00 Folic Acid/Vit B Comp W-C 1 Mg (Renal Caps) PO QDAY [facility] Naloxone HCl 0.1 mg 11/02/20 22:37 Naloxone 0.4 Mg/1 Ml Inj IV Q2MIN PRN Res Rate </= 8 or 02 SAT < 92% Nicotine 14 mg 11/03/20 10:00 Nicotine 14 Mg/24 Hr Patch TD QDAY [facility] Ondansetron HCl 4 mg 11/02/20 22:35 Ondansetron 4 Mg/2 Ml Inj IV Q6H PRN Nausea And Vomiting Oxycodone/Acetaminophen 1 tab 11/02/20 22:37 Oxycodone /Acetaminophen 5-325mg Tab PO Q6H PRN Pain, Moderate (4-6) Sodium Chloride 10 ml 11/03/20 10:00 Sodium Chloride 0.9% 10 Ml Flush Syringe IV BID [facility] Sodium Chloride 10 ml 11/02/20 22:35 Sodium Chloride 0.9% 10 Ml Flush Syringe IV PRN PRN LINE FLUSH
[2020-11-03] MEDS ORDERED: [UNRECOGNIZED DRUG - REMARK] PO SCH (10:00)
--- NOTE | 2020-11-03 10:18 | Consultation ---
History of Present Illness - Reason for Consult Consult date: 11/03/20 end stage renal disease, hyperkalemia - History of Present Illness The patient is a 65 YO male with history significant for Morbid Obesity, HTN, DM type 2, COPD, Gout, NICM, COPD, Systolic CHF, daily smoker and ESRD on HD on MWF who presented to [facility] ED 11/02 with complaints of left thigh/buttock swelling. Patient went to urgent care earlier that day after experiencing left thigh pain x1 week. The area in question started out as a small pimple, then became bigger and developed into a medium size boil. Additionally he complains of 9/10 sharp/aching pain which is exacerbated by sitting and/or putting any pressure on the area. After being examined by the urgent care provider he was referred to the ED for further evaluation and treatment. Patient states he is fully vaccinated for COVID-19. He denies fever, chills, chest pain, palpitations, acute worsening shortness of breath, headache, nausea, vomiting, diarrhea, constipation, myalgia, malaise, recent sick contacts. Labs and imaging reviewed. Nephrology was consulted for management of ESRD and Hyperkalemia. Past History Past Medical History: COPD, dialysis (m/w/f), ESRD, heart failure (EF 25 to 30% (08/2020)), hypertension, other (Obesity, cardiomyopathy, tobacco use) Past Surgical History: Other (Left forearm AV fistula,) Social history: smoking, full code. denies: alcohol abuse, prescription drug abuse, IV drug use Family history: hypertension Medications and Allergies Allergies Allergy/AdvReac Type Severity Reaction Status Date / Time No Known Allergies Allergy Verified 08/29/20 21:45 Home Medications Medication Instructions Recorded Confirmed Last Taken Type Ipratropium/Albuterol Sulfate 1 ampul IH Q6HRT #30 ampul.neb 04/22/19 11/03/20 1 Day Ago Rx [DUONEB *Not for PRN Use*] ~08/29/20 Acyclovir [Zovirax Tab] 800 mg PO Q12H 08/30/20 11/03/20 1 Day Ago History ~08/29/20 Sucroferric Oxyhydroxide(Nf) 1 mg PO AC 08/30/20 11/03/20 1 Day Ago History [Velphoro (Nf)] ~08/29/20 Vit B Comp No.3/Folic/C/Biotin 1 each PO DAILY 08/30/20 11/03/20 1 Day Ago History [Nephro-[place] Rx Tablet] ~08/29/20 carvediloL [Coreg] 6.25 mg PO BID 08/30/20 11/03/20 08/30/20 History Budesonide/Formoterol Fumarate 10.2 gm IH BID #1 hfa.aer.ad 09/01/20 11/03/20 Unknown Rx [Symbicort 160-4.5 Mcg Inhaler] predniSONE 10 mg PO QDAY 3 Days #3 tab 09/01/20 11/03/20 Unknown Rx predniSONE [Deltasone] 20 mg PO DAILY 3 Days #3 tablet 09/01/20 11/03/20 Unknown Rx predniSONE [Deltasone] 40 mg PO QDAY 3 Days #6 tab 09/01/20 11/03/20 Unknown Rx Prednisone [predniSONE 10 mg 10 mg PO .TAPER #1 tab.ds.pk 11/05/20 Unknown Rx (6-Day Pack, 21 Tabs)] oxyCODONE /ACETAMINOPHEN [Percocet 1 tab PO Q4HR #10 tab 11/05/20 Unknown Rx 5/325] Active Meds: Active Medications Acetaminophen (Acetaminophen 325 Mg Tab) 650 mg PO Q4H PRN PRN Reason: Pain MILD(1-3)/Fever >100.5/ABERNATHY Albuterol (Albuterol 2.5 Mg/3 Ml Nebu) 2.5 mg IH Q3HRT PRN PRN Reason: Shortness Of Breath Budesonide (Budesonide 0.5 Mg/2 Ml Nebu) 0.5 mg IH Q12HRT [facility] Carvedilol (Carvedilol 6.25 Mg Tab) 6.25 mg PO BID [facility] Dextrose (Dextrose 50% In Water (25gm) 50 Ml Syringe) 50 ml IV Q30MIN PRN; Protocol PRN Reason: Hypoglycemia Docusate Sodium (Docusate Sodium 100 Mg Cap) 100 mg PO BID [facility] Heparin Sodium (Porcine) (Heparin 5,000 Unit/1 Ml Vial) 5,000 unit SUB-Q Q12HR [facility] Piperacillin Sod/Tazobactam Sod (Zosyn/Ns 2.25 Gm/50ml) 2.25 gm in 50 mls @ 100 mls/hr IV Q8H [facility]; Protocol Insulin Human Lispro (Insulin Lispro 100 Unit/Ml) 0 unit SUB-Q ACHS [facility]; Protocol Multivit/Ca Carb/B Cmplx/FA/Prenat (Folic Acid/Vit B Comp W-C 1 Mg (Renal Caps)) 1 cap PO QDAY [facility] Naloxone HCl (Naloxone 0.4 Mg/1 Ml Inj) 0.1 mg IV Q2MIN PRN PRN Reason: Res Rate </= 8 or 02 SAT < 92% Nicotine (Nicotine 14 Mg/24 Hr Patch) 14 mg TD QDAY [facility] Ondansetron HCl (Ondansetron 4 Mg/2 Ml Inj) 4 mg IV Q6H PRN PRN Reason: Nausea And Vomiting Oxycodone/Acetaminophen (Oxycodone /Acetaminophen 5-325mg Tab) 1 tab PO Q6H PRN PRN Reason: Pain, Moderate (4-6) Sodium Chloride (Sodium Chloride 0.9% 10 Ml Flush Syringe) 10 ml IV BID [facility] Sodium Chloride (Sodium Chloride 0.9% 10 Ml Flush Syringe) 10 ml IV PRN PRN PRN Reason: LINE FLUSH Review of Systems All systems: negative (Please see HPI.) Exam - Vital Signs Vital signs: Vital Signs Temp Pulse Resp BP Pulse Ox 98.5 F 105 H 16 108/54 93 11/02/20 18:13 11/02/20 18:13 11/02/20 18:13 11/02/20 18:13 11/02/20 18:13 Results - Lab Results 11/03/20 10:16 11/03/20 10:16 Most recent lab results Calcium 10.9 mg/dL (8.4-10.2) H 11/02/20 18:00 Assessment and Plan 1. ESRD: Patient is on maintenance hemodialysis three times a week, MWF schedule. Last outpatient HD 11/01. Avoid nephrotoxic agents. Monitor renal function. Meds dosage based on GFR. Hemodialysis access L FA AVF. Hemodialysis: 2. FEN: Hyperkalemia, HD today, monitor. Renal diet. Monitor lytes. 3. Left thigh/groin cellulitis with abscess // Sepsis, POA: CT abdomen pelvis showed incompletely visualized cellulitis left ischiorectal fossa. General surgery (Dr. Ash) consulted. Abx. 4. H/o COPD: Brovana and Albuterol. Supplemental O2 as needed. Counseled to quit smoking. 5. H/o systolic CHF: Compensated. 6. HTN. Monitor BPs. Currently controlled. 7. DM type 2. Monitor blood sugar, controlled. 8. Tobacco abuse: Current every day smoker. Subjective: Patient was seen and examined at the bedside. Examination: General appearance: well-developed, well-nourished, appears stated age, obese, not in distress HEENT: ATNC, PERRL, hearing intact, vision intact Neck: neck supple, trachea midline Respiratory: diminished breath sounds Heart: regular, S1S2, no murmur Abdomen: obese, normoactive bowel sounds, not tender, not distended Integumentary: L buttock area swelling Neurologic: no focal deficit, no asterixis, alert, oriented x3 Ext: no edema Psychiatric: cooperative Hemodialysis access: L FA AVF
[2020-11-03] MEDS ORDERED: SODIUM CHLORIDE 0.9% 100 ML IV PRN (10:19)
--- NOTE | 2020-11-03 10:25 | Event Note ---
Date: 11/03/20 Hemodialysis consent obtained from patient.
[2020-11-03 10:50] LABS: Basophils % (Auto) 0.3 % (0.0-1.8); Eosinophils # (Auto) 0.3 K/mm3 (0.0-0.4); Eosinophils % (Auto) 2.3 % (0.0-4.3); Hemoglobin 12.2 gm/dl (11.8-15.2); Lymphocytes % (Auto) 7.2 % (13.4-35.0); Mean Corpuscular HGB Conc 34 % (32-34); Mean Corpuscular Volume 116 fl (84-94); Monocytes # (Auto) 1.1 K/mm3 (0.0-0.8); Monocytes % (Auto) 7.7 % (0.0-7.3); Platelet Count 143 K/mm3 (140-440); Red Blood Count 3.11 M/mm3 (3.65-5.03); Red Cell Distribution Width 14.2 % (13.2-15.2)
[2020-11-03] MEDS: INSULIN LISPRO 100 UNIT/ML SUB-Q SCH ×4 (10:57→22:01)
[2020-11-03] MEDS: NICOTINE 14 MG/24 HR PATCH TD SCH (10:58)
[2020-11-03] MEDS: DOCUSATE SODIUM 100 MG CAP PO SCH ×2 (10:59→22:01)
[2020-11-03] MEDS: HEPARIN 5,000 UNIT/1 ML VIAL SUB-Q SCH ×2 (10:59→22:01)
[2020-11-03] MEDS: FOLIC ACID/VIT B COMP W-C 1 MG (RENAL CAPS) PO SCH (10:59)
[2020-11-03] MEDS: carvediloL 6.25 MG TAB PO SCH ×2 (10:59→22:00)
[2020-11-03] MEDS ORDERED: EPOETIN ALFA-EPBX 10,000 UNIT/1 ML VIAL SUB-Q PRN (11:00)
[2020-11-03] MEDS ORDERED: HEPARIN 10,000 UNITS/10 ML VIAL IV PRN (11:00)
[2020-11-03 11:08] LABS: Albumin 3.1 g/dL (3.9-5); Calcium 9.8 mg/dL (8.4-10.2)
[2020-11-03 11:22] LABS: Hepatitis C Virus Antibody Non-Reactive (NonReactive)
--- NOTE | 2020-11-03 11:51 | Consultation ---
History of Present Illness Consult date: 11/03/20 Chief complaint: Boil of buttock - History of present illness History of present illness: 65-year-old male with a past medical history of diabetes, CHF who presents to the hospital with complaints of a boil on his buttock. The patient states is been present for several weeks. It started off as the size of a pea and then in the last week the size increased significantly which led him to come to the emergency room. He states he has had boils in the past near his buttocks and in his axilla. They have never needed incision and drainage by a healthcare provider. He states usually the areas will burst on their own and drain and then get better. He states that this time the boil did not drain on its own and got larger. He denies fevers or chills, chest pain, shortness of breath, nausea, vomiting, abdominal pain. He is having bowel movements. He states that upon getting the CT scan last night, the boil burst and started to drain. He feels much better today. Past History Past Medical History: COPD, dialysis (m/w/f), ESRD, heart failure (EF 25 to 30% (08/2020)), hypertension, other (Obesity, cardiomyopathy, tobacco use) Past Surgical History: Other (Left forearm AV fistula,) Social history: smoking, full code. denies: alcohol abuse, prescription drug abuse, IV drug use Family history: hypertension Medications and Allergies Allergies Allergy/AdvReac Type Severity Reaction Status Date / Time No Known Allergies Allergy Verified 08/29/20 21:45 Home Medications Medication Instructions Recorded Confirmed Last Taken Type Ipratropium/Albuterol Sulfate 1 ampul IH Q6HRT #30 ampul.neb 04/22/19 11/03/20 1 Day Ago Rx [DUONEB *Not for PRN Use*] ~08/29/20 Acyclovir [Zovirax Tab] 800 mg PO Q12H 08/30/20 11/03/20 1 Day Ago History ~08/29/20 Sucroferric Oxyhydroxide(Nf) 1 mg PO AC 08/30/20 11/03/20 1 Day Ago History [Velphoro (Nf)] ~08/29/20 Vit B Comp No.3/Folic/C/Biotin 1 each PO DAILY 08/30/20 11/03/20 1 Day Ago History [Nephro-[place] Rx Tablet] ~08/29/20 carvediloL [Coreg] 6.25 mg PO BID 08/30/20 11/03/20 08/30/20 History Budesonide/Formoterol Fumarate 10.2 gm IH BID #1 hfa.aer.ad 09/01/20 11/03/20 Unknown Rx [Symbicort 160-4.5 Mcg Inhaler] predniSONE 10 mg PO QDAY 3 Days #3 tab 09/01/20 11/03/20 Unknown Rx predniSONE [Deltasone] 20 mg PO DAILY 3 Days #3 tablet 09/01/20 11/03/20 Unknown Rx predniSONE [Deltasone] 40 mg PO QDAY 3 Days #6 tab 09/01/20 11/03/20 Unknown Rx Active Meds: Active Medications Acetaminophen (Acetaminophen 325 Mg Tab) 650 mg PO Q4H PRN PRN Reason: Pain MILD(1-3)/Fever >100.5/ABERNATHY Albuterol (Albuterol 2.5 Mg/3 Ml Nebu) 2.5 mg IH Q3HRT PRN PRN Reason: Shortness Of Breath Budesonide (Budesonide 0.5 Mg/2 Ml Nebu) 0.5 mg IH Q12HRT [facility] Carvedilol (Carvedilol 6.25 Mg Tab) 6.25 mg PO BID [facility] Last Admin: 11/03/20 10:59 Dose: Not Given Documented by: Dextrose (Dextrose 50% In Water (25gm) 50 Ml Syringe) 50 ml IV Q30MIN PRN; Protocol PRN Reason: Hypoglycemia Docusate Sodium (Docusate Sodium 100 Mg Cap) 100 mg PO BID [facility] Last Admin: 11/03/20 10:59 Dose: Not Given Documented by: Heparin Sodium (Porcine) (Heparin 5,000 Unit/1 Ml Vial) 5,000 unit SUB-Q Q12HR [facility] Last Admin: 11/03/20 10:59 Dose: Not Given Documented by: Heparin Sodium (Porcine) (Heparin 10,000 Units/10 Ml Vial) 3,000 unit IV FRANSISCO PRN PRN Reason: hemodialysis Piperacillin Sod/Tazobactam Sod (Zosyn/Ns 2.25 Gm/50ml) 2.25 gm in 50 mls @ 100 mls/hr IV Q8H [facility]; Protocol Sodium Chloride (Nacl 0.9%) 100 mls @ 999 mls/hr IV FRANSISCO PRN PRN Reason: Hypotension Insulin Human Lispro (Insulin Lispro 100 Unit/Ml) 0 unit SUB-Q ACHS [facility]; Protocol Last Admin: 11/03/20 10:57 Dose: Not Given Documented by: Multivit/Ca Carb/B Cmplx/FA/Prenat (Folic Acid/Vit B Comp W-C 1 Mg (Renal Caps)) 1 cap PO QDAY [facility] Last Admin: 11/03/20 10:59 Dose: Not Given Documented by: Naloxone HCl (Naloxone 0.4 Mg/1 Ml Inj) 0.1 mg IV Q2MIN PRN PRN Reason: Res Rate </= 8 or 02 SAT < 92% Nicotine (Nicotine 14 Mg/24 Hr Patch) 14 mg TD QDAY [facility] Last Admin: 11/03/20 10:58 Dose: Not Given Documented by: Ondansetron HCl (Ondansetron 4 Mg/2 Ml Inj) 4 mg IV Q6H PRN PRN Reason: Nausea And Vomiting Oxycodone/Acetaminophen (Oxycodone /Acetaminophen 5-325mg Tab) 1 tab PO Q6H PRN PRN Reason: Pain, Moderate (4-6) Sodium Chloride (Sodium Chloride 0.9% 10 Ml Flush Syringe) 10 ml IV BID [facility] Sodium Chloride (Sodium Chloride 0.9% 10 Ml Flush Syringe) 10 ml IV PRN PRN PRN Reason: LINE FLUSH Review of Systems All systems: negative (10 point ROS performed and negative except for that listed in HPI) Exam Vital Signs Temp Pulse Resp BP Pulse Ox 98.5 F 105 H 16 108/54 93 11/02/20 18:13 11/02/20 18:13 11/02/20 18:13 11/02/20 18:13 11/02/20 18:13 Narrative exam: Gen.: Awake, alert, oriented x3. No apparent distress ENT: Trachea midline. No lymphadenopathy. No scleral icterus or conjunctival pallor CV: S1, S2 present Respiratory: No audible wheezes Abdomen: Soft, nondistended, nontender. No rebound, rigidity, guarding Extremities: No clubbing, cyanosis, edema : There is an area of fluctuance of the left buttock/perineal region with point tenderness to palpation. No obvious wounds of the skin. There is mild surrounding induration. No erythema. Results - Labs 11/03/20 10:16 11/03/20 10:16 Abnormal lab results 11/02/20 11/02/20 11/03/20 Range/Units 18:00 18:00 01:01 WBC 15.8 H (4.5-11.0) K/mm3 RBC 3.51 L (3.65-5.03) M/mm3 MCV 116 H (84-94) fl MCH 40 H (28-32) pg Lymph % (Auto) 4.1 L (13.4-35.0) % [place] % (Auto) 7.9 H (0.0-7.3) % Lymph # (Auto) 0.6 L (1.2-5.4) K/mm3 [place] # (Auto) 1.2 H (0.0-0.8) K/mm3 Seg Neutrophils % 87.3 H (40.0-70.0) % Seg Neutrophils # 13.8 H (1.8-7.7) K/mm3 Sodium 135 L (137-145) mmol/L Potassium 5.6 H 5.3 H (3.6-5.0) mmol/L Chloride 94.0 L (98-107) mmol/L BUN 62 H (9-20) mg/dL Creatinine 10.9 H (0.8-1.3) mg/dL Glucose (75-100) mg/dL Calcium 10.9 H (8.4-10.2) mg/dL Total Protein 8.5 H (6.3-8.2) g/dL Albumin (3.9-5) g/dL 11/03/20 11/03/20 Range/Units 10:16 10:16 WBC 14.1 H (4.5-11.0) K/mm3 RBC 3.11 L (3.65-5.03) M/mm3 MCV 116 H (84-94) fl MCH 39 H (28-32) pg Lymph % (Auto) 7.2 L (13.4-35.0) % [place] % (Auto) 7.7 H (0.0-7.3) % Lymph # (Auto) 1.0 L (1.2-5.4) K/mm3 [place] # (Auto) 1.1 H (0.0-0.8) K/mm3 Seg Neutrophils % 82.5 H (40.0-70.0) % Seg Neutrophils # 11.6 H (1.8-7.7) K/mm3 Sodium 135 L (137-145) mmol/L Potassium 5.3 H (3.6-5.0) mmol/L Chloride 95.8 L (98-107) mmol/L BUN 76 H (9-20) mg/dL Creatinine 12.1 H (0.8-1.3) mg/dL Glucose 119 H (75-100) mg/dL Calcium (8.4-10.2) mg/dL Total Protein (6.3-8.2) g/dL Albumin 3.1 L (3.9-5) g/dL Diabetes panel 11/02/20 11/02/20 11/03/20 Range/Units 18:00 23:20 01:01 Sodium 135 L (137-145) mmol/L Potassium 5.6 H 5.3 H (3.6-5.0) mmol/L Chloride 94.0 L (98-107) mmol/L Carbon Dioxide 25 (22-30) mmol/L BUN 62 H (9-20) mg/dL Creatinine 10.9 H (0.8-1.3) mg/dL Glucose 97 (75-100) mg/dL Hemoglobin A1c 4.5 (4-6) % Calcium 10.9 H (8.4-10.2) mg/dL AST 19 (5-40) units/L ALT 17 (7-56) units/L Alkaline Phosphatase 118 (35-129) units/L Total Protein 8.5 H (6.3-8.2) g/dL Albumin 4.1 (3.9-5) g/dL 11/03/20 Range/Units 10:16 Sodium 135 L (137-145) mmol/L Potassium 5.3 H (3.6-5.0) mmol/L Chloride 95.8 L (98-107) mmol/L Carbon Dioxide 23 (22-30) mmol/L BUN 76 H (9-20) mg/dL Creatinine 12.1 H (0.8-1.3) mg/dL Glucose 119 H (75-100) mg/dL Hemoglobin A1c (4-6) % Calcium 9.8 (8.4-10.2) mg/dL AST 17 (5-40) units/L ALT 14 (7-56) units/L Alkaline Phosphatase 99 (35-129) units/L Total Protein 7.0 (6.3-8.2) g/dL Albumin 3.1 L (3.9-5) g/dL Calcium panel 11/02/20 11/03/20 Range/Units 18:00 10:16 Calcium 10.9 H 9.8 (8.4-10.2) mg/dL Albumin 4.1 3.1 L (3.9-5) g/dL Pituitary panel 11/02/20 11/03/20 11/03/20 Range/Units 18:00 01:01 10:16 Sodium 135 L 135 L (137-145) mmol/L Potassium 5.6 H 5.3 H 5.3 H (3.6-5.0) mmol/L Chloride 94.0 L 95.8 L (98-107) mmol/L Carbon Dioxide 25 23 (22-30) mmol/L BUN 62 H 76 H (9-20) mg/dL Creatinine 10.9 H 12.1 H (0.8-1.3) mg/dL Glucose 97 119 H (75-100) mg/dL Calcium 10.9 H 9.8 (8.4-10.2) mg/dL Adrenal panel 11/02/20 11/03/20 11/03/20 Range/Units 18:00 01:01 10:16 Sodium 135 L 135 L (137-145) mmol/L Potassium 5.6 H 5.3 H 5.3 H (3.6-5.0) mmol/L Chloride 94.0 L 95.8 L (98-107) mmol/L Carbon Dioxide 25 23 (22-30) mmol/L BUN 62 H 76 H (9-20) mg/dL Creatinine 10.9 H 12.1 H (0.8-1.3) mg/dL Glucose 97 119 H (75-100) mg/dL Calcium 10.9 H 9.8 (8.4-10.2) mg/dL Total Bilirubin 0.70 0.40 (0.1-1.2) mg/dL AST 19 17 (5-40) units/L ALT 17 14 (7-56) units/L Alkaline Phosphatase 118 99 (35-129) units/L Total Protein 8.5 H 7.0 (6.3-8.2) g/dL Albumin 4.1 3.1 L (3.9-5) g/dL - Imaging CT scan - pelvis: report reviewed, image reviewed Assessment and Plan 65-year-old male with left buttock/perineal abscess Plan: 1. Keep NPO 2. IVF 3. prn pain control 4 Iv abx 5. HD per nephro 6. Recommend incision and drainage of left buttock/perineal abscess. I discussed all risks, benefits, alternatives to the procedure with the patient. I gave him the option of bedside drainage versus drainage under sedation in the operating room and he prefers to be sedated. Consent obtained for incision and drainage of left buttock abscess. Added to the OR schedule for today. 7. Will obtain cultures during I&D Thank you for this consultation. Please call with any questions or concerns. Evaluation and treatment of this patient was during the time of the national and state emergency arising from COVID19 coronavirus pandemic. Treatment and procedures performed meet the current and available best practice and guidelines for patient during the COVID pandemic.
[2020-11-03 12:02] LABS: Hepatitis B Surface Antigen Nonreactive (Negative)
[2020-11-03] MEDS: BUDESONIDE 0.5 MG/2 ML NEBU IH SCH (14:47)
[2020-11-03] MEDS ORDERED: BUPIVACAINE/PF (0.5%) 5 MG/1 ML 30 ML VIAL INFILTRATI ONE ×2 (15:33→16:42)
--- NOTE | 2020-11-03 15:41 | Anesthesia Consultation ---
Anesthesia Consult and Med Hx Date of service: 11/03/20 - Airway Anesthetic Teeth Evaluation: Poor (multiple missing teeth; all remaining lower incisors loose) ROM Head & Neck: Adequate Mental/Hyoid Distance: Adequate Mallampati Class: Class III Intubation Access Assessment: Possibly Difficult - Pulmonary Exam CTA: No (coarse breath sounds with expiration b/l; improved with cough) - Cardiac Exam Cardiac Exam: RRR - Pre-Operative Health Status ASA Pre-Surgery Classification: ASA4 Proposed Anesthetic Plan: MAC - Pulmonary Hx Smoking: Yes (1/2 PPD) Hx Respiratory Symptoms: Yes (chronic cough) COPD: Yes Home Oxygen Therapy: Yes (uses prn; no use in 3 months) Hx Sleep Apnea: Yes (+ CPAP) - Cardiovascular System Hx Hypertension: Yes Hx Heart Attack/AMI: No (EF 20-25%) Hx Cardia Arrhythmia: No - Central Nervous System CVA: No - Endocrine Hx End Stage Renal Disease: Yes (last HD today) Hx Liver Disease: No Hx Non-Insulin Dependent Diabetes: Yes Hx Thyroid Disease: No - Other Systems Hx Obesity: Yes (BMI 37) - Additional Comments Anesthesia Medical History Comments: Admitted with sepsis 2/2 cellulitis/butt abscess now scheduled for I&D.
[2020-11-03] MEDS ORDERED: fentaNYL 100 MCG/2 ML INJ IV PRN (15:42)
--- NOTE | 2020-11-03 15:42 | Anesthesia Day of Surgery ---
Anesthesia Day of Surgery - Day of Surgery Patient Examined: Yes Patient H&P Reviewed: Yes Patient is NPO: Yes
[2020-11-03] MEDS ORDERED: fentaNYL 100 MCG/2 ML INJ ONE (15:50)
[2020-11-03] MEDS ORDERED: propofoL 200 MG/20 ML VIAL IV ONE (15:50)
[2020-11-03] MEDS ORDERED: LIDOCAINE PF 100 MG/5 ML (CARDIAC SYRINGE) IV ONE (15:51)
[2020-11-03] MEDS ORDERED: KETAMINE/STERILE WATER 50 MG/ML SYRINGE ONE (15:51)
[2020-11-03] MEDS ORDERED: ONDANSETRON 4 MG/2 ML INJ IV PRN (16:00)
[2020-11-03] MEDS ORDERED: PHENYLEPHRINE/NS 1,000 MCG/10 ML SYRINGE (OR USE) IV ONE (16:27)
--- NOTE | 2020-11-03 16:32 | Operative Report ---
Operative Report Operative Report: Date of surgery: 11/03/2020 Preoperative diagnosis: Abscess of left buttock/perineum Postoperative diagnosis: Same as above Procedure: Incision and drainage of left buttock abscess Surgeon: DO Elly Anesthesia: IRAIS local Findings: 4 x 4 centimeter abscess cavity of left inner buttock with purulent fluid EBL: 5 cc Specimen: Abscess cultures Complications: None Disposition: Stable to PACU HPI and indication: Patient is a 65-year-old male who presented to the emergency room with worsening left buttock pain. Patient was found to have an abscess of the left buttock/perineal area. It was recommended that he undergo incision and drainage of the abscess. Patient declined bedside drainage. He was consented for incision and drainage of left buttock abscess and scheduled for the OR. All risk, benefits, alternatives of surgery were discussed with the patient. Procedure in detail: Patient was identified in the preoperative area, taken back to the operating room and placed on the operating table in prone position. All bony prominences were padded appropriately. After anesthesia was induced the bu ttocks were taped apart and the area of the abscess was prepped and draped in usual sterile fashion. A timeout was performed. Local anesthetic was infiltrated into the skin at the intended incision site. Using a 15 blade a T- shaped incision was made at the center of the area of fluctuance. There was immediate drainage of purulent fluid under pressure. The abscess cavity was probed with a gloved finger and all loculations broken up. Deep abscess cultures were obtained. After all of the purulent fluid was expressed the cavity was irrigated with saline. Hemostasis was ensured. The wound was then packed with 1 piece of half inch iodoform packing. This was covered with 4 x 4 gauze and an ABD pad. This was secured with mesh underwear. At the end of the case, all sponge, instrument, sharp counts were correct x2. The patient tolerated the procedure well. He was awoken from anesthesia, transferred to the stretcher in supine position. He was taken to PACU in stable condition. Patient's was updated of his condition
--- NOTE | 2020-11-03 16:33 | Consultation ---
History of Present Illness - Reason for Consult Consult date: 11/03/20 - History of Present Illness 65-year-old man past medical history ESRD on HD, COPD diabetes, CHF presented to the hospital complaining of buttock abscess. He notes it began a few weeks ago, and has grown in size and pain since that time. He has had previous abscesses in the past on his buttocks and axilla. Lesion resolved on their own. He was taken to the OR today for incision and drainage of the abscess. Afebrile with a white count 15.8. Currently on vancomycin and Zosyn. Blood cultures no growth so far. Imaging personally reviewed: CTAP: cellulitis of the left ischiorectal fossa. Review of Systems: Bold if positive, otherwise negative General: fevers, chills, rigors HEENT: visual disturbance, diplopia, eye pain Respiratory: cough, sputum, hemoptysis, shortness of breath Cardiovascular: chest pain, syncope Gastrointestinal: nausea, vomiting, diarrhea, abdominal pain Genitourinary: dysuria, hematuria, flank pain Musculoskeletal: neck pain, back pain, joint pain, edema Neurologic: headaches, seizures Hematologic: easy bruising or bleeding Endocrine: night sweats, acute weight loss Skin: rash, jaundice, redness Psychiatric: suicidal, homicidal ideation Past History Past Medical History: COPD, dialysis (m/w/f), ESRD, heart failure (EF 25 to 30% (08/2020)), hypertension, other (Obesity, cardiomyopathy, tobacco use) Past Surgical History: Other (Left forearm AV fistula,) Social history: smoking, full code. denies: alcohol abuse, prescription drug abuse, IV drug use Family history: hypertension Medications and Allergies Allergies Allergy/AdvReac Type Severity Reaction Status Date / Time No Known Allergies Allergy Verified 08/29/20 21:45 Home Medications Medication Instructions Recorded Confirmed Last Taken Type Ipratropium/Albuterol Sulfate 1 ampul IH Q6HRT #30 ampul.neb 04/22/19 11/03/20 1 Day Ago Rx [DUONEB *Not for PRN Use*] ~08/29/20 Acyclovir [Zovirax Tab] 800 mg PO Q12H 08/30/20 11/03/20 1 Day Ago History ~08/29/20 Sucroferric Oxyhydroxide(Nf) 1 mg PO AC 08/30/20 11/03/20 1 Day Ago History [Velphoro (Nf)] ~08/29/20 Vit B Comp No.3/Folic/C/Biotin 1 each PO DAILY 08/30/20 11/03/20 1 Day Ago History [Nephro-[place] Rx Tablet] ~08/29/20 carvediloL [Coreg] 6.25 mg PO BID 08/30/20 11/03/20 08/30/20 History Budesonide/Formoterol Fumarate 10.2 gm IH BID #1 hfa.aer.ad 09/01/20 11/03/20 Unknown Rx [Symbicort 160-4.5 Mcg Inhaler] predniSONE 10 mg PO QDAY 3 Days #3 tab 09/01/20 11/03/20 Unknown Rx predniSONE [Deltasone] 20 mg PO DAILY 3 Days #3 tablet 09/01/20 11/03/20 Unknown Rx predniSONE [Deltasone] 40 mg PO QDAY 3 Days #6 tab 09/01/20 11/03/20 Unknown Rx Active Meds: Active Medications Acetaminophen (Acetaminophen 325 Mg Tab) 650 mg PO Q4H PRN PRN Reason: Pain MILD(1-3)/Fever >100.5/ABERNATHY Albuterol (Albuterol 2.5 Mg/3 Ml Nebu) 2.5 mg IH Q3HRT PRN PRN Reason: Shortness Of Breath Budesonide (Budesonide 0.5 Mg/2 Ml Nebu) 0.5 mg IH Q12HRT [facility] Last Admin: 11/03/20 14:47 Dose: Not Given Documented by: Carvedilol (Carvedilol 6.25 Mg Tab) 6.25 mg PO BID [facility] Last Admin: 11/03/20 10:59 Dose: Not Given Documented by: Dextrose (Dextrose 50% In Water (25gm) 50 Ml Syringe) 50 ml IV Q30MIN PRN; Protocol PRN Reason: Hypoglycemia Last Admin: 11/03/20 15:31 Dose: 10 ml Documented by: Docusate Sodium (Docusate Sodium 100 Mg Cap) 100 mg PO BID [facility] Last Admin: 11/03/20 10:59 Dose: Not Given Documented by: Fentanyl (Fentanyl 100 Mcg/2 Ml Inj) 50 mcg IV Q5MIN PRN PRN Reason: Pain , Severe (7-10) Stop: 11/03/20 23:00 Heparin Sodium (Porcine) (Heparin 5,000 Unit/1 Ml Vial) 5,000 unit SUB-Q Q12HR [facility] Last Admin: 11/03/20 10:59 Dose: Not Given Documented by: Heparin Sodium (Porcine) (Heparin 10,000 Units/10 Ml Vial) 3,000 unit IV FRANSISCO PRN PRN Reason: hemodialysis Piperacillin Sod/Tazobactam Sod (Zosyn/Ns 2.25 Gm/50ml) 2.25 gm in 50 mls @ 100 mls/hr IV Q8H [facility]; Protocol Last Admin: 11/03/20 15:20 Dose: 100 mls/hr Documented by: Sodium Chloride (Nacl 0.9%) 100 mls @ 999 mls/hr IV FRANSISCO PRN PRN Reason: Hypotension Insulin Human Lispro (Insulin Lispro 100 Unit/Ml) 0 unit SUB-Q ACHS [facility]; Protocol Last Admin: 11/03/20 13:53 Dose: Not Given Documented by: Multivit/Ca Carb/B Cmplx/FA/Prenat (Folic Acid/Vit B Comp W-C 1 Mg (Renal Caps)) 1 cap PO QDAY [facility] Last Admin: 11/03/20 10:59 Dose: Not Given Documented by: Naloxone HCl (Naloxone 0.4 Mg/1 Ml Inj) 0.1 mg IV Q2MIN PRN PRN Reason: Res Rate </= 8 or 02 SAT < 92% Nicotine (Nicotine 14 Mg/24 Hr Patch) 14 mg TD QDAY [facility] Last Admin: 11/03/20 10:58 Dose: Not Given Documented by: Ondansetron HCl (Ondansetron 4 Mg/2 Ml Inj) 4 mg IV Q6H PRN PRN Reason: Nausea And Vomiting Ondansetron HCl (Ondansetron 4 Mg/2 Ml Inj) 4 mg IV ONCE PRN PRN Reason: Nausea And Vomiting Oxycodone/Acetaminophen (Oxycodone /Acetaminophen 5-325mg Tab) 1 tab PO Q6H PRN PRN Reason: Pain, Moderate (4-6) Sodium Chloride (Sodium Chloride 0.9% 10 Ml Flush Syringe) 10 ml IV BID [facility] Last Admin: 11/03/20 10:00 Dose: 10 ml Documented by: Sodium Chloride (Sodium Chloride 0.9% 10 Ml Flush Syringe) 10 ml IV PRN PRN PRN Reason: LINE FLUSH Physical Examination - Physical Exam Narrative exam: Physical Exam: Constitutional: Alert, cooperative. No acute distress Head, Ears, Nose: Normocephalic, atraumatic. External ears, nose normal Eyes: Conjunctivae/corneas clear. No icterus. No ptosis. Neck: Supple, no meningeal signs Oral: dentition fair, no thrush Cardiovascular: S1, S2 normal. Respiratory: Good air entry, clear to auscultation bilaterally GI: Soft, non-tender; bowel sounds normal. No peritoneal signs. Abscess site dressed Musculoskeletal: No pedal edema, no cyanosis. Skin: No rash or abscess Hem/Lymphatic: No palpable cervical or supraclavicular nodes. No lymphangitis Psych: Mood ok. Affect normal Neurological: Awake, alert, oriented. No gross abnormality - Constitutional Vitals: Vital Signs Temp Pulse Resp BP Pulse Ox 98.2 F 86 20 128/72 98 11/03/20 14:10 11/03/20 14:10 11/03/20 14:10 11/03/20 14:10 11/03/20 14:10 Temperature -Last 24 Hours Temperature 98.2 F Temperature 98.0 F Temperature 98.8 F Temperature 98.6 F Temperature 99.1 F Temperature 98.5 F Results - Labs CBC & Chem 7: 11/03/20 10:16 11/03/20 10:16 Labs: Abnormal lab results 11/02/20 11/02/20 11/03/20 Range/Units 18:00 18:00 01:01 WBC 15.8 H (4.5-11.0) K/mm3 RBC 3.51 L (3.65-5.03) M/mm3 MCV 116 H (84-94) fl MCH 40 H (28-32) pg Lymph % (Auto) 4.1 L (13.4-35.0) % [place] % (Auto) 7.9 H (0.0-7.3) % Lymph # (Auto) 0.6 L (1.2-5.4) K/mm3 [place] # (Auto) 1.2 H (0.0-0.8) K/mm3 Seg Neutrophils % 87.3 H (40.0-70.0) % Seg Neutrophils # 13.8 H (1.8-7.7) K/mm3 Sodium 135 L (137-145) mmol/L Potassium 5.6 H 5.3 H (3.6-5.0) mmol/L Chloride 94.0 L (98-107) mmol/L BUN 62 H (9-20) mg/dL Creatinine 10.9 H (0.8-1.3) mg/dL Glucose (75-100) mg/dL Calcium 10.9 H (8.4-10.2) mg/dL Total Protein 8.5 H (6.3-8.2) g/dL Albumin (3.9-5) g/dL 11/03/20 11/03/20 Range/Units 10:16 10:16 WBC 14.1 H (4.5-11.0) K/mm3 RBC 3.11 L (3.65-5.03) M/mm3 MCV 116 H (84-94) fl MCH 39 H (28-32) pg Lymph % (Auto) 7.2 L (13.4-35.0) % [place] % (Auto) 7.7 H (0.0-7.3) % Lymph # (Auto) 1.0 L (1.2-5.4) K/mm3 [place] # (Auto) 1.1 H (0.0-0.8) K/mm3 Seg Neutrophils % 82.5 H (40.0-70.0) % Seg Neutrophils # 11.6 H (1.8-7.7) K/mm3 Sodium 135 L (137-145) mmol/L Potassium 5.3 H (3.6-5.0) mmol/L Chloride 95.8 L (98-107) mmol/L BUN 76 H (9-20) mg/dL Creatinine 12.1 H (0.8-1.3) mg/dL Glucose 119 H (75-100) mg/dL Calcium (8.4-10.2) mg/dL Total Protein (6.3-8.2) g/dL Albumin 3.1 L (3.9-5) g/dL Assessment and Plan Cultures: Blood culture 11/02/2020 no growth so far A/P: 65 old man past medical history diabetes, COPD, ESRD on HD, CHF admitted with buttock abscess. #Left buttock abscess: Status post I&D in the OR today. On empiric antibiotics. #Diabetes: tight glycemic control for best outcomes. #ESRD on HD: Renally dose antibiotics. Recs: -Continue vancomycin dosed per pharmacy. -Stop Zosyn -Start ceftriaxone 2 g every 24 hours. -Follow-up abscess cultures for directed oral therapy for discharge. Thank you for the consult, we will continue to follow. Yolanda Hart MD [facility] ([facility]) O: [phone] F: [phone]
[2020-11-03] MEDS ORDERED: SODIUM CHLORIDE 0.9% IRR 1,500 ML BOTTLE IR ONE (16:43)
[2020-11-03] MEDS ORDERED: SODIUM CHLORIDE 0.9% 100 ML ONE (16:44)
--- NOTE | 2020-11-03 17:42 | Post Anesthesia Evaluation ---
- Post Anesthesia Evaluation Patient Participated: Yes Airway Patent: Yes Stable Respiratory Function: Yes Nausea/Vomiting: No Temp > 96.8F: Yes Pain Manageable: Yes Adequeate Hydration: Yes Anesthesia Complications: No
[2020-11-03] MEDS ORDERED: HYDROcodone/ACETAMINOPHEN 5-325 MG TAB PO ONE (18:00)
[2020-11-03] MEDS: cefTRIAXone/NS 2 GM/100 ML 2 GM/100 ML BAG IV SCH (22:01)
--- NOTE | 2020-11-04 08:37 | Progress Note ---
Assessment and Plan Assessment and plan: 65-year-old man past medical history ESRD on HD, COPD diabetes, CHF presented to the hospital complaining of buttock abscess. He notes it began a few weeks ago, and has grown in size and pain since that time. He has had previous abscesses in the past on his buttocks and axilla. Lesion resolved on their own. The patient was admitted with diagnosis of left thigh/groin cellulitis with abscess, sepsis, hyperkalemia with potassium 5.6 on admission, ESRD on hemodialysis, COPD, compensated chronic systolic heart failure, hypertension, diabetes mellitus type 2 and tobacco abuse. He was taken to the OR on 11/03/2020 for incision and drainage of the abscess. The patient was started on antibiotics of vancomycin and Zosyn. Infectious disease evaluated the patient and change antibiotics to Rocephin and vancomycin. Blood cultures remain negative. Left thigh/groin cellulitis with abscess -CT abdomen pelvis shows Incompletely visualized cellulitis left ischiorectal fossa -General surgery (Dr. Ash) consulted -Pain management -Supportive care Sepsis. -Present on admission. Patient meets criteria given the tachycardia, leukocytosis and diagnosis of cellulitis. Hyperkalemia -Potassium 5.6 on admission -Hyperkalemia cocktail ordered -Follow-up on labs ESRD on HD -M/W/F -Avoid nephrotoxin agents -Renal dose all meds -Nephrology ( Dr. Beyer) consulted for HD management History of COPD -Moderate to severe -Schedule duo nebs and Pulmicort, albuterol as needed Chronic systolic heart failure. Compensated -EF 20-25% seen on echo (08/31/2020) -Follows Dr. Tadeo ([facility]) as outpatient HTN -Monitor BP -Resume home hypertensive meds DM2 -POC BG monitoring -SSI coverage prn -HgbA1C pending Tobacco abuse -Current every day smoker -Counseled for cessation -Nicotine patch when necessary DVT PPX -on Heparin 11/03/2020. Await surgery consultation for left thigh abscess/cellulitis. Continue IV antibiotics. Consult ID for further evaluation. Continue hemodialysis per nephrology recommendations 11/04/2020. ID change antibiotics to Rocephin and vancomycin. Zosyn was discontinued. Follow-up abscess cultures for directed oral therapy for discharge. Appreciate ID and surgery consultations. Anticipate discharge in a.m. History Interval history: No new issues overnight. Hospitalist Physical - Constitutional Vitals: Temp Pulse Resp BP Pulse Ox 98.0 F 79 19 101/63 92 11/04/20 03:20 11/04/20 03:20 11/04/20 03:20 11/04/20 03:20 11/04/20 03:20 General appearance: Present: no acute distress, well-nourished - EENT Eyes: Present: PERRL, EOM intact ENT: hearing intact, clear oral mucosa, dentition normal - Neck Neck: Present: supple, normal ROM - Respiratory Respiratory effort: normal Respiratory: bilateral: CTA - Cardiovascular Rhythm: regular Heart Sounds: Present: S1 & S2. Absent: gallop, rub - Extremities Extremities: no ischemia, No edema, Full ROM - Abdominal General gastrointestinal: soft, non-tender, non-distended, normal bowel sounds - Integumentary Integumentary: Present: clear, warm, dry - Neurologic Neurologic: CNII-XII intact, moves all extremities Results - Labs CBC & Chem 7: 11/03/20 10:16 11/03/20 10:16 Labs: Laboratory Last Values WBC 14.1 K/mm3 (4.5-11.0) H 11/03/20 10:16 RBC 3.11 M/mm3 (3.65-5.03) L 11/03/20 10:16 Hgb 12.2 gm/dl (11.8-15.2) 11/03/20 10:16 Hct 36.0 % (35.5-45.6) 11/03/20 10:16 MCV 116 fl (84-94) H 11/03/20 10:16 MCH 39 pg (28-32) H 11/03/20 10:16 MCHC 34 % (32-34) 11/03/20 10:16 RDW 14.2 % (13.2-15.2) 11/03/20 10:16 Plt Count 143 K/mm3 (140-440) 11/03/20 10:16 Lymph % (Auto) 7.2 % (13.4-35.0) L 11/03/20 10:16 [place] % (Auto) 7.7 % (0.0-7.3) H 11/03/20 10:16 Eos % (Auto) 2.3 % (0.0-4.3) 11/03/20 10:16 Baso % (Auto) 0.3 % (0.0-1.8) 11/03/20 10:16 Lymph # (Auto) 1.0 K/mm3 (1.2-5.4) L 11/03/20 10:16 [place] # (Auto) 1.1 K/mm3 (0.0-0.8) H 11/03/20 10:16 Eos # (Auto) 0.3 K/mm3 (0.0-0.4) 11/03/20 10:16 Baso # (Auto) 0.0 K/mm3 (0.0-0.1) 11/03/20 10:16 Seg Neutrophils % 82.5 % (40.0-70.0) H 11/03/20 10:16 Seg Neutrophils # 11.6 K/mm3 (1.8-7.7) H 11/03/20 10:16 Sodium 135 mmol/L (137-145) L 11/03/20 10:16 Potassium 5.3 mmol/L (3.6-5.0) H 11/03/20 10:16 Chloride 95.8 mmol/L (98-107) L 11/03/20 10:16 Carbon Dioxide 23 mmol/L (22-30) 11/03/20 10:16 Anion Gap 22 mmol/L 11/03/20 10:16 BUN 76 mg/dL (9-20) H 11/03/20 10:16 Creatinine 12.1 mg/dL (0.8-1.3) H 11/03/20 10:16 Estimated GFR 5 ml/min 11/03/20 10:16 BUN/Creatinine Ratio 6 % 11/03/20 10:16 Glucose 119 mg/dL (75-100) H 11/03/20 10:16 POC Glucose 87 mg/dL (70-105) 11/04/20 08:16 Hemoglobin A1c 4.5 % (4-6) 11/02/20 23:20 Calcium 9.8 mg/dL (8.4-10.2) 11/03/20 10:16 Total Bilirubin 0.40 mg/dL (0.1-1.2) 11/03/20 10:16 AST 17 units/L (5-40) 11/03/20 10:16 ALT 14 units/L (7-56) 11/03/20 10:16 Alkaline Phosphatase 99 units/L (35-129) 11/03/20 10:16 Total Protein 7.0 g/dL (6.3-8.2) 11/03/20 10:16 Albumin 3.1 g/dL (3.9-5) L 11/03/20 10:16 Albumin/Globulin Ratio 0.8 % 11/03/20 10:16 Random Vancomycin 16.3 ug/mL (0-40.0) 11/04/20 04:41 Hepatitis A IgM Ab Non-reactive (NonReactive) 11/03/20 10:28 Hep Bs Antigen Nonreactive (Negative) 11/03/20 10:28 Hep B Core IgM Ab Non-reactive (NonReactive) 11/03/20 10:28 Hepatitis C Antibody Non-reactive (NonReactive) 11/03/20 10:28 Microbiology: Microbiology 11/02/20 23:13 Peripheral/Venous Blood Culture - Preliminary NO GROWTH AFTER 24 HOURS 11/02/20 23:20 Peripheral/Venous Blood Culture - Preliminary NO GROWTH AFTER 24 HOURS Active Medications - Current Medications Current Medications: Generic Name Dose Route Start Last Admin Trade Name Freq PRN Reason Stop Dose Admin Acetaminophen 650 mg 11/02/20 22:35 Acetaminophen 325 Mg Tab PO Q4H PRN Pain MILD(1-3)/Fever >100.5/ABERNATHY Albuterol 2.5 mg 11/02/20 22:37 Albuterol 2.5 Mg/3 Ml Nebu IH Q3HRT PRN Shortness Of Breath Arformoterol Tartrate 15 mcg 11/03/20 21:45 Arformoterol 15 Mcg/2 Ml Nebu IH Q12HRT JOSE Budesonide 0.5 mg 11/03/20 08:00 11/03/20 14:47 Budesonide 0.5 Mg/2 Ml Nebu IH Not Given Q12HRT JOSE Carvedilol 6.25 mg 11/03/20 10:00 11/03/20 22:00 Carvedilol 6.25 Mg Tab PO 6.25 mg BID JOSE Administration Dextrose 50 ml 11/02/20 22:37 11/03/20 15:31 Dextrose 50% In Water (25gm) 50 Ml Syringe IV 10 ml Q30MIN PRN Administration Hypoglycemia Protocol Docusate Sodium 100 mg 11/03/20 10:00 11/03/20 22:01 Docusate Sodium 100 Mg Cap PO 100 mg BID JOSE Administration Heparin Sodium (Porcine) 5,000 unit 11/03/20 10:00 11/03/20 22:01 Heparin 5,000 Unit/1 Ml Vial SUB-Q 5,000 unit Q12HR JOSE Administration Heparin Sodium (Porcine) 3,000 unit 11/03/20 11:00 Heparin 10,000 Units/10 Ml Vial IV FRANSISCO PRN hemodialysis Sodium Chloride 100 mls @ 999 mls/hr 11/03/20 10:19 Nacl 0.9% IV FRANSISCO PRN Hypotension Ceftriaxone Sodium 2 gm in 100 mls @ 200 mls/hr 11/03/20 18:00 11/03/20 22:01 Rocephin/Ns 2 Gm/100 Ml IV 200 mls/hr Q24H JOSE Administration Protocol Insulin Human Lispro 0 unit 11/03/20 07:30 11/03/20 22:01 Insulin Lispro 100 Unit/Ml SUB-Q Not Given ACHS [facility] Protocol Multivit/Ca Carb/B Cmplx/FA/Prenat 1 cap 11/03/20 10:00 11/03/20 10:59 Folic Acid/Vit B Comp W-C 1 Mg (Renal Caps) PO Not Given QDAY [facility] Naloxone HCl 0.1 mg 11/02/20 22:37 Naloxone 0.4 Mg/1 Ml Inj IV Q2MIN PRN Res Rate </= 8 or 02 SAT < 92% Nicotine 14 mg 11/03/20 10:00 11/03/20 10:58 Nicotine 14 Mg/24 Hr Patch TD Not Given QDAY [facility] Ondansetron HCl 4 mg 11/02/20 22:35 Ondansetron 4 Mg/2 Ml Inj IV Q6H PRN Nausea And Vomiting Ondansetron HCl 4 mg 11/03/20 16:00 Ondansetron 4 Mg/2 Ml Inj IV ONCE PRN Nausea And Vomiting Oxycodone/Acetaminophen 1 tab 11/02/20 22:37 Oxycodone /Acetaminophen 5-325mg Tab PO Q6H PRN Pain, Moderate (4-6) Sodium Chloride 10 ml 11/03/20 10:00 11/03/20 22:02 Sodium Chloride 0.9% 10 Ml Flush Syringe IV 10 ml BID JOSE Administration Sodium Chloride 10 ml 11/02/20 22:35 Sodium Chloride 0.9% 10 Ml Flush Syringe IV PRN PRN LINE FLUSH
[2020-11-04] MEDS: BUDESONIDE 0.5 MG/2 ML NEBU IH SCH ×2 (08:47→08:58)
[2020-11-04] MEDS: ARFORMOTEROL 15 MCG/2 ML NEBU IH SCH ×2 (08:47→08:58)
[2020-11-04] MEDS: INSULIN LISPRO 100 UNIT/ML SUB-Q SCH ×2 (08:48→17:01)
--- NOTE | 2020-11-04 09:56 | Electrocardiograph Report ---
[facility] Test Date: 2020-11-03 Test Time: 06:53:56 Pat Name: ALONSO CASTRO Department: Room: A484 1 Gender: M Manager Metrology: HF : 1955 Requested By: CHAPARRITA NOGUERA Order Number: [id number] Reading MD: Zia Win Measurements Intervals [place] Rate: 88 P: 79 [place]: 217 QRS: -3 QRSD: 109 T: 17 QT: 391 QTc: 473 Interpretive Statements Sinus rhythm Paired ventricular premature complexes Borderline prolonged [place] interval Probable left atrial enlargement NSSTTW'S. PRWP Left ventricular hypertrophy Compared to ECG 08/29/2020 23:12:57 Left ventricular hypertrophy now present Myocardial infarct finding no longer present Electronically Signed On 11-04-2020 9:56:13 EDT by Zia Win
--- NOTE | 2020-11-04 10:28 | Progress Note ---
Assessment and Plan 1. ESRD: Patient is on maintenance hemodialysis three times a week, MWF schedule. Last outpatient HD 11/01. Avoid nephrotoxic agents. Monitor renal function. Meds dosage based on GFR. Hemodialysis access L FA AVF. Hemodialysis: 11/03. 2. FEN: Hyperkalemia, s/p HD, monitor. Renal diet. Monitor lytes. 3. Left thigh/groin cellulitis with abscess // Sepsis, POA: CT abdomen pelvis showed incompletely visualized cellulitis left ischiorectal fossa. S/p I&D 11/03. Followed by General surgery (Dr. Ash). Abx. 4. H/o COPD: Brovana and Albuterol. Supplemental O2 as needed. Counseled to quit smoking. 5. H/o systolic CHF: Compensated. 6. HTN. Monitor BPs. Currently controlled. 7. DM type 2. Monitor blood sugar, controlled. 8. Tobacco abuse: Current every day smoker. Subjective: Patient was seen and examined at the bedside. Examination: General appearance: well-developed, well-nourished, appears stated age, obese, not in distress HEENT: ATNC, PERRL, hearing intact, vision intact Neck: neck supple, trachea midline Respiratory: diminished breath sounds Heart: regular, S1S2, no murmur Abdomen: obese, normoactive bowel sounds, not tender, not distended Integumentary: L buttock area dressing Neurologic: no focal deficit, no asterixis, alert, oriented x3 Ext: no edema Psychiatric: cooperative Hemodialysis access: L FA AVF Subjective Date of service: 11/04/20 Objective - Vital Signs Vital signs: Vital Signs - 12hr 11/03/20 11/04/20 11/04/20 23:27 03:20 08:18 Temperature 98.2 F 98.0 F 98.2 F Pulse Rate 83 79 82 Pulse Rate [ Posterior Bilateral] Respiratory 19 19 18 Rate Respiratory Rate [Posterior Bilateral] Blood Pressure 98/59 101/63 105/70 O2 Sat by Pulse 93 92 91 Oximetry 11/04/20 11/04/20 08:58 08:59 Temperature Pulse Rate Pulse Rate [ 84 Posterior Bilateral] Respiratory Rate Respiratory 20 Rate [Posterior Bilateral] Blood Pressure O2 Sat by Pulse 94 Oximetry - Lab 11/03/20 10:16 11/03/20 10:16 Most recent lab results Calcium 9.8 mg/dL (8.4-10.2) 11/03/20 10:16 Medications & Allergies - Medications Allergies/Adverse Reactions: Allergies No Known Allergies Allergy (Verified 08/29/20 21:45) Home Medications: Home Medications Medication Instructions Recorded Confirmed Last Taken Type Ipratropium/Albuterol Sulfate 1 ampul IH Q6HRT #30 ampul.neb 04/22/19 11/03/20 1 Day Ago Rx [DUONEB *Not for PRN Use*] ~08/29/20 Acyclovir [Zovirax Tab] 800 mg PO Q12H 08/30/20 11/03/20 1 Day Ago History ~08/29/20 Sucroferric Oxyhydroxide(Nf) 1 mg PO AC 08/30/20 11/03/20 1 Day Ago History [Velphoro (Nf)] ~08/29/20 Vit B Comp No.3/Folic/C/Biotin 1 each PO DAILY 08/30/20 11/03/20 1 Day Ago History [Nephro-[place] Rx Tablet] ~08/29/20 carvediloL [Coreg] 6.25 mg PO BID 08/30/20 11/03/20 08/30/20 History Budesonide/Formoterol Fumarate 10.2 gm IH BID #1 hfa.aer.ad 09/01/20 11/03/20 Unknown Rx [Symbicort 160-4.5 Mcg Inhaler] predniSONE 10 mg PO QDAY 3 Days #3 tab 09/01/20 11/03/20 Unknown Rx predniSONE [Deltasone] 20 mg PO DAILY 3 Days #3 tablet 09/01/20 11/03/20 Unknown Rx predniSONE [Deltasone] 40 mg PO QDAY 3 Days #6 tab 09/01/20 11/03/20 Unknown Rx Prednisone [predniSONE 10 mg 10 mg PO .TAPER #1 tab.ds.pk 11/05/20 Unknown Rx (6-Day Pack, 21 Tabs)] oxyCODONE /ACETAMINOPHEN [Percocet 1 tab PO Q4HR #10 tab 11/05/20 Unknown Rx 5/325] Active Medications: Generic Name Dose Route Start Last Admin Trade Name Freq PRN Reason Stop Dose Admin Acetaminophen 650 mg 11/02/20 22:35 Acetaminophen 325 Mg Tab PO Q4H PRN Pain MILD(1-3)/Fever >100.5/ABERNATHY Albuterol 2.5 mg 11/02/20 22:37 Albuterol 2.5 Mg/3 Ml Nebu IH Q3HRT PRN Shortness Of Breath Arformoterol Tartrate 15 mcg 11/03/20 21:45 11/04/20 08:58 Arformoterol 15 Mcg/2 Ml Nebu IH 15 mcg Q12HRT JOSE Administration Budesonide 0.5 mg 11/03/20 08:00 11/04/20 08:58 Budesonide 0.5 Mg/2 Ml Nebu IH 0.5 mg Q12HRT JOSE Administration Carvedilol 6.25 mg 11/03/20 10:00 11/03/20 22:00 Carvedilol 6.25 Mg Tab PO 6.25 mg BID JOSE Administration Dextrose 50 ml 11/02/20 22:37 11/03/20 15:31 Dextrose 50% In Water (25gm) 50 Ml Syringe IV 10 ml Q30MIN PRN Administration Hypoglycemia Protocol Docusate Sodium 100 mg 11/03/20 10:00 11/03/20 22:01 Docusate Sodium 100 Mg Cap PO 100 mg BID JOSE Administration Heparin Sodium (Porcine) 5,000 unit 11/03/20 10:00 11/03/20 22:01 Heparin 5,000 Unit/1 Ml Vial SUB-Q 5,000 unit Q12HR JOSE Administration Heparin Sodium (Porcine) 3,000 unit 11/03/20 11:00 Heparin 10,000 Units/10 Ml Vial IV FRANSISCO PRN hemodialysis Sodium Chloride 100 mls @ 999 mls/hr 11/03/20 10:19 Nacl 0.9% IV FRANSISCO PRN Hypotension Ceftriaxone Sodium 2 gm in 100 mls @ 200 mls/hr 11/03/20 18:00 11/03/20 22:01 Rocephin/Ns 2 Gm/100 Ml IV 200 mls/hr Q24H JOSE Administration Protocol Insulin Human Lispro 0 unit 11/03/20 07:30 11/04/20 08:48 Insulin Lispro 100 Unit/Ml SUB-Q Not Given ACHS JOSE Protocol Multivit/Ca Carb/B Cmplx/FA/Prenat 1 cap 11/03/20 10:00 11/03/20 10:59 Folic Acid/Vit B Comp W-C 1 Mg (Renal Caps) PO Not Given QDAY JOSE Naloxone HCl 0.1 mg 11/02/20 22:37 Naloxone 0.4 Mg/1 Ml Inj IV Q2MIN PRN Res Rate </= 8 or 02 SAT < 92% Nicotine 14 mg 11/03/20 10:00 11/03/20 10:58 Nicotine 14 Mg/24 Hr Patch TD Not Given QDAY JOSE Ondansetron HCl 4 mg 11/02/20 22:35 Ondansetron 4 Mg/2 Ml Inj IV Q6H PRN Nausea And Vomiting Ondansetron HCl 4 mg 11/03/20 16:00 Ondansetron 4 Mg/2 Ml Inj IV ONCE PRN Nausea And Vomiting Oxycodone/Acetaminophen 1 tab 11/02/20 22:37 Oxycodone /Acetaminophen 5-325mg Tab PO Q6H PRN Pain, Moderate (4-6) Sodium Chloride 10 ml 11/03/20 10:00 11/03/20 22:02 Sodium Chloride 0.9% 10 Ml Flush Syringe IV 10 ml BID JOSE Administration Sodium Chloride 10 ml 11/02/20 22:35 Sodium Chloride 0.9% 10 Ml Flush Syringe IV PRN PRN LINE FLUSH
[2020-11-04] MEDS: carvediloL 6.25 MG TAB PO SCH ×2 (11:03→21:22)
[2020-11-04] MEDS: FOLIC ACID/VIT B COMP W-C 1 MG (RENAL CAPS) PO SCH (11:03)
[2020-11-04] MEDS: DOCUSATE SODIUM 100 MG CAP PO SCH ×2 (11:03→21:22)
[2020-11-04] MEDS: HEPARIN 5,000 UNIT/1 ML VIAL SUB-Q SCH ×2 (11:03→21:22)
[2020-11-04] MEDS: NICOTINE 14 MG/24 HR PATCH TD SCH (11:03)
--- NOTE | 2020-11-04 13:03 | Progress Note ---
Assessment and Plan Cultures: Blood culture 11/02/2020 no growth so far A/P: 65 old man past medical history diabetes, COPD, ESRD on HD, CHF admitted with buttock abscess. #Left buttock abscess: Status post I&D in the OR today. On empiric antibiotics. #Diabetes: tight glycemic control for best outcomes. #ESRD on HD: Renally dose antibiotics. Recs: -Continue vancomycin dosed per pharmacy. -Start ceftriaxone 2 g every 24 hours. -Follow up abscess cultures -Follow-up abscess cultures for directed therapy on discharge. Could potentially give IV ABx with HD Thank you for the consult, we will continue to follow. Yolanda Hart MD [facility] ([facility]) O: [phone] F: [phone] Subjective Date of service: 11/04/20 Interval history: Afebrile, gram stain from cultures negative thus far. Objective - Exam Narrative Exam: Physical Exam: Constitutional: Alert, cooperative. No acute distress Head, Ears, Nose: Normocephalic, atraumatic. External ears, nose normal Eyes: Conjunctivae/corneas clear. No icterus. No ptosis. Neck: Supple, no meningeal signs Oral: dentition fair, no thrush Cardiovascular: S1, S2 normal. Respiratory: Good air entry, clear to auscultation bilaterally GI: Soft, non-tender; bowel sounds normal. No peritoneal signs. Abscess site dressed Musculoskeletal: No pedal edema, no cyanosis. Skin: No rash or abscess Hem/Lymphatic: No palpable cervical or supraclavicular nodes. No lymphangitis Psych: Mood ok. Affect normal Neurological: Awake, alert, oriented. No gross abnormality - Constitutional Vitals: Vital Signs Temp Pulse Resp BP Pulse Ox 97.9 F 82 18 101/67 95 11/04/20 12:47 11/04/20 12:47 11/04/20 12:47 11/04/20 12:47 11/04/20 12:47 Temperature -Last 24 Hours Temperature 97.9 F Temperature 98.2 F Temperature 98.0 F Temperature 98.2 F Temperature 98.4 F Temperature 98.6 F Temperature 98.6 F Temperature 98.6 F Temperature 97.9 F Temperature 98.2 F - Labs CBC & Chem 7: 11/03/20 10:16 11/03/20 10:16 Labs: Abnormal lab results 11/04/20 Range/Units 11:30 POC Glucose 116 H (70-105) mg/dL
[2020-11-04] MEDS ORDERED: MORPHINE 2 MG/1 ML INJ IV ONE (15:30)
--- NOTE | 2020-11-04 15:37 | Progress Note ---
Assessment and Plan 65 yo M s/p Incision and drainage of left buttock abscess, POD 1 Plan: 1. start sitz baths q shift 2. continue abx per ID 3. prn pain control 4. diabetic diet 5. strict glucose control 6. follow up OR cultures 7. Ok to dc from surgery standpoint when final abx recs are made. Pt may follow up in wound clinic or surgery clinic upon dc. [facility] [address] [place] [address] Thank you for this consultation. Please call with any questions or concerns. Subjective Date of service: 11/04/20 Narrative: Pt seen and examined. States the surgical site it sore. Keeley diet, no n/v. Afebrile. Objective Vital Signs - 12hr 11/04/20 11/04/20 11/04/20 08:18 08:58 08:59 Temperature 98.2 F Pulse Rate 82 Pulse Rate [ 84 Posterior Bilateral] Respiratory 18 Rate Respiratory 20 Rate [Posterior Bilateral] Blood Pressure 105/70 Blood Pressure [Right] O2 Sat by Pulse 91 94 Oximetry 11/04/20 12:47 Temperature 97.9 F Pulse Rate 82 Pulse Rate [ Posterior Bilateral] Respiratory 18 Rate Respiratory Rate [Posterior Bilateral] Blood Pressure Blood Pressure 101/67 [Right] O2 Sat by Pulse 95 Oximetry - General physical appearance Narrative Exam: Gen.: Awake, alert, oriented x3. No apparent distress ENT: Trachea midline. No lymphadenopathy. No scleral icterus or conjunctival pallor CV: S1, S2 present Respiratory: No audible wheezes : RN present: L gluteal dressing removed and one piece of iodoform packing removed from wound - scant serosang drainage, no odor. Wound is clean. There is only induration of the skin without additional fluctuance. Minimal tenderness. Wound covered with dry gauze and ABD pad. - Labs 11/03/20 10:16 11/03/20 10:16
[2020-11-05] MEDS: BUDESONIDE 0.5 MG/2 ML NEBU IH SCH ×2 (01:00→10:17)
[2020-11-05] MEDS: ARFORMOTEROL 15 MCG/2 ML NEBU IH SCH ×2 (01:00→10:16)
--- NOTE | 2020-11-05 08:30 | Discharge Summary ---
<MARIA LUISABALDOVICTOR HUGO R - Last Filed: 11/05/20 08:43> Providers - Providers Date of Admission: 11/02/20 22:27 Date of discharge: 11/05/20 Attending physician: VICTOR HUGO GLASS 11/02/20 22:22 Consult to Physician [CONS] Urgent Comment: Dr. Hernandez spoke with Dr. Becker @ [id number] Consulting Provider: MIKKI BECKER Physician Instructions: Reason For Exam: Possible left ischiorectal abscess/cellulitis 11/02/20 22:37 Consult to Physician [CONS] Routine Comment: Consulting Provider: FELICIA VÁSQUEZ Physician Instructions: Reason For Exam: ESRD on HD M/W/F, mgmt of HD 11/03/20 09:37 Consult to Physician [CONS] Routine Comment: Consulting Provider: MAX BRAVO Physician Instructions: Reason For Exam: thigh abscess Primary care physician: FABRICE LÓPEZ MD Hospitalization Reason for admission: Left leg abscess Condition: Fair Hospital course: 65 old man past medical history diabetes, COPD, ESRD on HD, CHF admitted with diagnosis of sepsis, hyperkalemia, hypertension, diabetes mellitus type 2, ESRD on HD and left thigh abscess. The patient was seen by ID and general surgery in consultation. The patient was treated with IV antibiotics per ID recommendations. Patient had I&D of the abscess completed on 11/03/2020 by surgery. Surgical culture revealed no organisms seen. Patient was seen by nephrology and underwent appropriate hemodialysis. Dr. Hart with infectious disease is to consult case management with regards to IV vancomycin discharge medication to be given with dialysis. Dedicated discharge time 35 minutes. Disposition: 01 HOME / SELF CARE / HOMELESS Final Discharge Diagnosis (Prints w/discharge instructions): sepsis, hyperkalemia, hypertension, diabetes mellitus type 2, ESRD on HD and left thigh abscess. Core Measure Documentation - Palliative Care Palliative Care/ Comfort Measures: Not Applicable - Core Measures Any of the following diagnoses?: none Exam - Constitutional Vitals: Temp Pulse Resp BP Pulse Ox 98.8 F 91 H 22 105/68 94 11/05/20 07:52 11/05/20 07:52 11/05/20 07:52 11/05/20 07:52 11/05/20 07:54 General appearance: Present: no acute distress, well-nourished - EENT Eyes: Present: PERRL ENT: hearing intact, clear oral mucosa - Neck Neck: Present: supple, normal ROM - Respiratory Respiratory effort: normal Respiratory: bilateral: CTA - Cardiovascular Heart Sounds: Present: S1 & S2. Absent: rub, click - Extremities Extremities: pulses symmetrical, No edema Peripheral Pulses: within normal limits - Abdominal General gastrointestinal: Present: soft, non-tender, non-distended, normal bowel sounds Male genitourinary: Present: normal - Integumentary Integumentary: Present: clear, warm, dry - Musculoskeletal Musculoskeletal: gait normal, strength equal bilaterally - Psychiatric Psychiatric: appropriate mood/affect, intact judgment & insight - Neurologic Neurologic: CNII-XII intact, moves all extremities Plan Activity: advance as tolerated Weight Bearing Status: Weight Bear as Tolerated Diet: diabetic Follow up with: HARISH HART MD [Staff Physician] - 7 Days MIKKI BECKER DO [Staff Physician] - 7 Days PRIMARY CAREMD [Referring] - 3-5 Days KIM GARCIA MD [Staff Physician] - 7 Days Prescriptions: oxyCODONE /ACETAMINOPHEN [Percocet 5/325] 1 tab PO Q4HR #10 tab Prednisone [predniSONE 10 mg (6-Day Pack, 21 Tabs)] 10 mg PO .TAPER #1 tab.ds.pk <MIKKI BECKER - Last Filed: 11/05/20 13:17> Providers - Providers Date of Admission: 11/02/20 22:27 Attending physician: VICTOR HUGO GLASS 11/02/20 22:22 Consult to Physician [CONS] Urgent Comment: Dr. Hernandez spoke with Dr. Becker @ 0845 Consulting Provider: MIKKI BECKER Physician Instructions: Reason For Exam: Possible left ischiorectal abscess/cellulitis 11/02/20 22:37 Consult to Physician [CONS] Routine Comment: Consulting Provider: FELICIA VÁSQUEZ Physician Instructions: Reason For Exam: ESRD on HD M/W/F, mgmt of HD 11/03/20 09:37 Consult to Physician [CONS] Routine Comment: Consulting Provider: MAX BRAVO Physician Instructions: Reason For Exam: thigh abscess 11/05/20 09:44 Consult to Case Management [CONS] Routine Services Needed at Discharge: Home Health Services Additional Physician Instructions: Yolanda Hart MD [facility] ([facility]) M: [phone] O: [phone] F: [phone] Outpatient parenteral antibiotic therapy orders Diagnosis: buttock abscess Antibiotic administration: cefepime 2g with HD until 11/13/2020 Line: Lab monitoring: CBC with differential, BUN, creatinine, LFTs, CRP once per week preferably on Sunday or Sunday For critical labs, call office: [phone] Yolanda Hart Primary care physician: FABRICE LÓPEZ MD Exam - Constitutional Vitals: Temp Pulse Resp BP Pulse Ox 98.2 F 70 18 129/75 96 11/05/20 09:00 11/05/20 12:00 11/05/20 09:00 11/05/20 12:00 11/05/20 09:00 Plan Wound: other (Perform sitz baths 3-4 times a day and after every bowel movement or use detachable shower head to irrigate area of wound 3-4 times per day and after every bowel movement. Keep covered with gauze dressing.)
[2020-11-05] MEDS ORDERED: SODIUM CHLORIDE 0.9% 100 ML IV PRN (09:00)
--- NOTE | 2020-11-05 09:49 | Progress Note ---
Assessment and Plan Cultures: Blood culture 11/02/2020 no growth so far A/P: 65 old man past medical history diabetes, COPD, ESRD on HD, CHF admitted with buttock abscess. #Left buttock abscess: Status post I&D in the OR today. On empiric antibiotics. #Diabetes: tight glycemic control for best outcomes. #ESRD on HD: Renally dose antibiotics. Recs: -Continue vancomycin dosed per pharmacy. -Start ceftriaxone 2 g every 24 hours. -Follow up abscess cultures -Case management consulted for cefepime 2 g with HD until 11/13/2020. -Okay for discharge when HD antibiotics arranged Thank you for the consult, we will sign off. Please call questions. Yolanda Hart MD [facility] ([facility]) O: [phone] F: [phone] Subjective Date of service: 11/05/20 Interval history: Afebrile, cultures remain negative. Objective - Exam Narrative Exam: Physical Exam: Constitutional: Alert, cooperative. No acute distress Head, Ears, Nose: Normocephalic, atraumatic. External ears, nose normal Eyes: Conjunctivae/corneas clear. No icterus. No ptosis. Neck: Supple, no meningeal signs Oral: dentition fair, no thrush Cardiovascular: S1, S2 normal. Respiratory: Good air entry, clear to auscultation bilaterally GI: Soft, non-tender; bowel sounds normal. No peritoneal signs. Abscess site dressed Musculoskeletal: No pedal edema, no cyanosis. Skin: No rash or abscess Hem/Lymphatic: No palpable cervical or supraclavicular nodes. No lymphangitis Psych: Mood ok. Affect normal Neurological: Awake, alert, oriented. No gross abnormality - Constitutional Vitals: Vital Signs Temp Pulse Resp BP Pulse Ox 98.2 F 85 18 125/73 96 11/05/20 09:00 11/05/20 09:30 11/05/20 09:00 11/05/20 09:30 11/05/20 09:00 Temperature -Last 24 Hours Temperature 98.2 F Temperature 98.8 F Temperature 97.7 F Temperature 98.0 F Temperature 98.3 F Temperature 98.6 F Temperature 97.9 F - Labs CBC & Chem 7: 11/03/20 10:16 11/03/20 10:16 Labs: Abnormal lab results 11/04/20 11/04/20 11/04/20 Range/Units 11:30 16:47 20:54 POC Glucose 116 H 134 H 128 H (70-105) mg/dL
[2020-11-05] MEDS: INSULIN LISPRO 100 UNIT/ML SUB-Q SCH (10:16)
[2020-11-05] MEDS: cefTRIAXone/NS 2 GM/100 ML 2 GM/100 ML BAG IV SCH (10:16)
--- NOTE | 2020-11-05 12:10 | Progress Note ---
Assessment and Plan 1. ESRD: Patient is on maintenance hemodialysis three times a week, MWF schedule. Last outpatient HD 11/01. Avoid nephrotoxic agents. Monitor renal function. Meds dosage based on GFR. Hemodialysis access L FA AVF. Hemodialysis: 11/03, 11/05. 2. FEN: Hyperkalemia, s/p HD, monitor. Renal diet. Monitor lytes. 3. Left thigh/groin cellulitis with abscess // Sepsis, POA: CT abdomen pelvis showed incompletely visualized cellulitis left ischiorectal fossa. S/p I&D 11/03. Followed by General surgery (Dr. Ash). Abx. 4. H/o COPD: Brovana and Albuterol. Supplemental O2 as needed. 5. H/o systolic CHF: Compensated. 6. HTN. Monitor BPs. Currently controlled. 7. DM type 2. Monitor blood sugar, controlled. 8. Tobacco abuse: Current every day smoker. Counseled to quit smoking. Subjective: Patient was seen and examined at the bedside. Examination: General appearance: well-developed, well-nourished, appears stated age, obese, not in distress HEENT: ATNC, SHARON, hearing intact, vision intact Neck: neck supple, trachea midline Respiratory: diminished breath sounds Heart: regular, S1S2, no murmur Abdomen: obese, normoactive bowel sounds, not tender, not distended Integumentary: L buttock area dressing Neurologic: no focal deficit, no asterixis, alert, oriented x3 Ext: no edema Psychiatric: cooperative Hemodialysis access: L FA AVF Subjective Date of service: 11/05/20 Objective - Vital Signs Vital signs: Vital Signs - 12hr 11/05/20 11/05/20 11/05/20 00:36 03:43 07:52 Temperature 97.7 F 98.8 F Pulse Rate 79 91 H Respiratory 19 22 Rate Blood Pressure 110/66 105/68 O2 Sat by Pulse 97 93 91 Oximetry O2 Sat by Pulse Oximetry [ Posterior Bilateral] 11/05/20 11/05/20 11/05/20 07:54 09:00 09:15 Temperature 98.2 F Pulse Rate 87 82 Respiratory 18 Rate Blood Pressure 112/69 121/65 O2 Sat by Pulse 94 Oximetry O2 Sat by Pulse 96 Oximetry [ Posterior Bilateral] 11/05/20 11/05/20 11/05/20 09:30 09:45 10:00 Temperature Pulse Rate 85 78 85 Respiratory Rate Blood Pressure 125/73 153/75 104/50 O2 Sat by Pulse Oximetry O2 Sat by Pulse Oximetry [ Posterior Bilateral] 11/05/20 11/05/20 11/05/20 10:15 10:30 10:45 Temperature Pulse Rate 81 75 75 Respiratory Rate Blood Pressure 106/52 96/56 101/54 O2 Sat by Pulse Oximetry O2 Sat by Pulse Oximetry [ Posterior Bilateral] 11/05/20 11/05/20 11/05/20 11:00 11:15 11:30 Temperature Pulse Rate 79 75 75 Respiratory Rate Blood Pressure 113/59 91/54 97/49 O2 Sat by Pulse Oximetry O2 Sat by Pulse Oximetry [ Posterior Bilateral] 11/05/20 11/05/20 11:45 12:00 Temperature Pulse Rate 81 70 Respiratory Rate Blood Pressure 97/77 129/75 O2 Sat by Pulse Oximetry O2 Sat by Pulse Oximetry [ Posterior Bilateral] - Lab 11/03/20 10:16 11/03/20 10:16 Most recent lab results Calcium 9.8 mg/dL (8.4-10.2) 11/03/20 10:16 Medications & Allergies - Medications Allergies/Adverse Reactions: Allergies No Known Allergies Allergy (Verified 08/29/20 21:45) Home Medications: Home Medications Medication Instructions Recorded Confirmed Last Taken Type Ipratropium/Albuterol Sulfate 1 ampul IH Q6HRT #30 ampul.neb 04/22/19 11/03/20 1 Day Ago Rx [DUONEB *Not for PRN Use*] ~08/29/20 Acyclovir [Zovirax Tab] 800 mg PO Q12H 08/30/20 11/03/20 1 Day Ago History ~08/29/20 Sucroferric Oxyhydroxide(Nf) 1 mg PO AC 08/30/20 11/03/20 1 Day Ago History [Velphoro (Nf)] ~08/29/20 Vit B Comp No.3/Folic/C/Biotin 1 each PO DAILY 08/30/20 11/03/20 1 Day Ago History [Nephro-[place] Rx Tablet] ~08/29/20 carvediloL [Coreg] 6.25 mg PO BID 08/30/20 11/03/20 08/30/20 History Budesonide/Formoterol Fumarate 10.2 gm IH BID #1 hfa.aer.ad 09/01/20 11/03/20 Unknown Rx [Symbicort 160-4.5 Mcg Inhaler] predniSONE 10 mg PO QDAY 3 Days #3 tab 09/01/20 11/03/20 Unknown Rx predniSONE [Deltasone] 20 mg PO DAILY 3 Days #3 tablet 09/01/20 11/03/20 Unknown Rx predniSONE [Deltasone] 40 mg PO QDAY 3 Days #6 tab 09/01/20 11/03/20 Unknown Rx Prednisone [predniSONE 10 mg 10 mg PO .TAPER #1 tab.ds.pk 11/05/20 Unknown Rx (6-Day Pack, 21 Tabs)] oxyCODONE /ACETAMINOPHEN [Percocet 1 tab PO Q4HR #10 tab 11/05/20 Unknown Rx 5/325] Active Medications: Generic Name Dose Route Start Last Admin Trade Name Freq PRN Reason Stop Dose Admin Acetaminophen 650 mg 11/02/20 22:35 Acetaminophen 325 Mg Tab PO Q4H PRN Pain MILD(1-3)/Fever >100.5/ABERNATHY Albuterol 2.5 mg 11/02/20 22:37 Albuterol 2.5 Mg/3 Ml Nebu IH Q3HRT PRN Shortness Of Breath Arformoterol Tartrate 15 mcg 11/03/20 21:45 11/05/20 10:16 Arformoterol 15 Mcg/2 Ml Nebu IH Not Given Q12HRT JOSE Budesonide 0.5 mg 11/03/20 08:00 11/05/20 10:17 Budesonide 0.5 Mg/2 Ml Nebu IH Not Given Q12HRT JOSE Carvedilol 6.25 mg 11/03/20 10:00 11/04/20 21:22 Carvedilol 6.25 Mg Tab PO 6.25 mg BID JOSE Administration Dextrose 50 ml 11/02/20 22:37 11/03/20 15:31 Dextrose 50% In Water (25gm) 50 Ml Syringe IV 10 ml Q30MIN PRN Administration Hypoglycemia Protocol Docusate Sodium 100 mg 11/03/20 10:00 11/04/20 21:22 Docusate Sodium 100 Mg Cap PO 100 mg BID JOSE Administration Heparin Sodium (Porcine) 5,000 unit 11/03/20 10:00 11/04/20 21:22 Heparin 5,000 Unit/1 Ml Vial SUB-Q 5,000 unit Q12HR JOSE Administration Heparin Sodium (Porcine) 3,000 unit 11/03/20 11:00 11/05/20 09:21 Heparin 10,000 Units/10 Ml Vial IV 3,000 unit FRANSISCO PRN Administration hemodialysis Ceftriaxone Sodium 2 gm in 100 mls @ 200 mls/hr 11/03/20 18:00 11/05/20 10:16 Rocephin/Ns 2 Gm/100 Ml IV Not Given Q24H [facility] Protocol Sodium Chloride 100 mls @ 999 mls/hr 11/05/20 09:00 Nacl 0.9% IV FRANSISCO PRN Hypotension Insulin Human Lispro 0 unit 11/03/20 07:30 11/05/20 10:16 Insulin Lispro 100 Unit/Ml SUB-Q Not Given ACHS [facility] Protocol Multivit/Ca Carb/B Cmplx/FA/Prenat 1 cap 11/03/20 10:00 11/04/20 11:03 Folic Acid/Vit B Comp W-C 1 Mg (Renal Caps) PO 1 cap QDAY JOSE Administration Naloxone HCl 0.1 mg 11/02/20 22:37 Naloxone 0.4 Mg/1 Ml Inj IV Q2MIN PRN Res Rate </= 8 or 02 SAT < 92% Nicotine 14 mg 11/03/20 10:00 11/04/20 11:03 Nicotine 14 Mg/24 Hr Patch TD 14 mg QDAY JOSE Administration Ondansetron HCl 4 mg 11/02/20 22:35 Ondansetron 4 Mg/2 Ml Inj IV Q6H PRN Nausea And Vomiting Oxycodone/Acetaminophen 1 tab 11/02/20 22:37 11/04/20 19:43 Oxycodone /Acetaminophen 5-325mg Tab PO 1 tab Q6H PRN Administration Pain, Moderate (4-6) Sodium Chloride 10 ml 11/03/20 10:00 11/05/20 10:16 Sodium Chloride 0.9% 10 Ml Flush Syringe IV Not Given BID JOSE Sodium Chloride 10 ml 11/02/20 22:35 Sodium Chloride 0.9% 10 Ml Flush Syringe IV PRN PRN LINE FLUSH
[2020-11-05 16:00] VITALS: BP 134/81
== END 2020-11-05 19:11 | disposition home or self-care (01) ==
LOC: ED 15:58 → 4A 22:27 → INTOOBSV 11-03 16:35 → OBSVTOIN 11-03 16:35
PROVIDERS: ADMIT Internal Medicine Geriatric Medicine; ATTEND Hospitalist
DX: A41.9 Sepsis, unspecified organism (principal); K61.39 Other ischiorectal abscess; L02.416 Cutaneous abscess of left lower limb; L03.115 Cellulitis of right lower limb; D72.829 Elevated white blood cell count, unspecified; E87.5 Hyperkalemia; I13.2 Hypertensive heart and chronic kidney disease with heart failure and with stage 5 chronic kidney disease, or end stage renal disease; I50.21 Acute systolic (congestive) heart failure; N18.6 End stage renal disease; J44.9 Chronic obstructive pulmonary disease, unspecified; E11.22 Type 2 diabetes mellitus with diabetic chronic kidney disease; I42.9 Cardiomyopathy, unspecified; E66.9 Obesity, unspecified; M19.90 Unspecified osteoarthritis, unspecified site; F17.210 Nicotine dependence, cigarettes, uncomplicated; Z99.2 Dependence on renal dialysis; Z79.4 Long term (current) use of insulin; Z68.37 Body mass index [BMI] 37.0-37.9, adult
CPT/HCPCS: 10061; 36415; 74176; 80053; 80074; 80202; 82962; 83036; 84132; 85025; 87040; 87075; 87116; 93005; 94640; 94760; 96365; 96366; 96367; 96368; 96372; 96375; 96376; 99291; G0257; G0378; J0610; J0696; J1644; J2001; J2270; J2370; J2543; J2704; J3010; J3370; J3490; J7040; J1815

== ENCOUNTER 2021-04-27 13:14 | Emergency (ER) | payer MEDICARE ==
[2021-04-27] MEDS ORDERED: oxyCODONE /ACETAMINOPHEN 5-325MG TAB PO ONE (18:56)
--- NOTE | 2021-04-27 19:07 | Emergency Department Report ---
ED Lower Extremity HPI - General Chief Complaint: Extremity Problem,Nontraumatic Stated Complaint: KNEE PAIN Time Seen by Provider: 04/27/21 18:49 Source: EMS Mode of arrival: Ambulatory Limitations: No Limitations - History of Present Illness Initial Comments: Chief complaint: Bilateral knee pain HPI: This is a 65-year-old male with history of end-stage renal disease on hemodialysis, COPD, hypertension, gout, osteoarthritis of both knees, heart failure who presents with bilateral knee pain for 1 week. He has chronic edema. He was evaluated by orthopedic knee specialist 2 to 3 years ago. Strongly recommended to have bilateral total knee replacements. Due to history of heart failure, he is not a candidate for surgery. At times ibuprofen does provide mild relief. He denies fever. Denies trauma. 7 out of 10 moderate pain. Otherwise Mr. Sierra has been in his normal state of health Complaint: other (Bilateral knee pain history of osteoarthritis) -: Gradual, week(s) (1 week) Injury: Knee: Right, Left Type of Injury: other (No injury) Severity: moderate Severity scale (0 -10): 7 Improves With: rest Worsens With: weight bearing, movement Context: other (History of severe bilateral osteoarthritis) Associated Symptoms: swelling (Mild swelling) Treatments Prior to Arrival: other (Home ibuprofen) - Related Data Home Medications Medication Instructions Recorded Confirmed Last Taken Acyclovir [Zovirax Tab] 800 mg PO Q12H 08/30/20 11/03/20 1 Day Ago ~08/29/20 Sucroferric Oxyhydroxide(Nf) 1 mg PO AC 08/30/20 11/03/20 1 Day Ago [Velphoro (Nf)] ~08/29/20 Vit B Comp No.3/Folic/C/Biotin 1 each PO DAILY 08/30/20 11/03/20 1 Day Ago [Nephro-[place] Rx Tablet] ~08/29/20 carvediloL [Coreg] 6.25 mg PO BID 08/30/20 11/03/20 08/30/20 Previous Rx's Medication Instructions Recorded Last Taken Type Ipratropium/Albuterol Sulfate 1 ampul IH Q6HRT #30 ampul.neb 04/22/19 1 Day Ago Rx [DUONEB *Not for PRN Use*] ~08/29/20 Budesonide/Formoterol Fumarate 10.2 gm IH BID #1 hfa.aer.ad 09/01/20 Unknown Rx [Symbicort 160-4.5 Mcg Inhaler] predniSONE 10 mg PO QDAY 3 Days #3 tab 09/01/20 Unknown Rx predniSONE [Deltasone] 20 mg PO DAILY 3 Days #3 tablet 09/01/20 Unknown Rx predniSONE [Deltasone] 40 mg PO QDAY 3 Days #6 tab 09/01/20 Unknown Rx Prednisone [predniSONE 10 mg 10 mg PO .TAPER #1 tab.ds.pk 11/05/20 Unknown Rx (6-Day Pack, 21 Tabs)] oxyCODONE /ACETAMINOPHEN [Percocet 1 tab PO Q4HR #10 tab 11/05/20 Unknown Rx 5/325] oxyCODONE /ACETAMINOPHEN [Percocet 1 tab PO Q6HR PRN #15 tablet 04/27/21 Unknown Rx 5/325] Allergies Allergy/AdvReac Type Severity Reaction Status Date / Time No Known Allergies Allergy Verified 04/27/21 13:17 ED Review of Systems ROS: Stated complaint: KNEE PAIN Other details as noted in HPI Comment: All other systems reviewed and negative Constitutional: denies: chills Respiratory: denies: cough, shortness of breath Cardiovascular: denies: chest pain Gastrointestinal: denies: abdominal pain Musculoskeletal: joint swelling ED Past Medical Hx - Past Medical History Previous Medical History?: Yes Hx Hypertension: Yes Hx Heart Attack/AMI: No (EF 20-25%) Hx Congestive Heart Failure: Yes Hx Diabetes: Yes Hx Deep Vein Thrombosis: No Hx Pulmonary Embolism: No Hx Liver Disease: No Hx Renal Disease: Yes (dialysis m, w, f) Hx Arthritis: Yes Hx Kidney Stones: No Hx Asthma: No Hx COPD: Yes Hx Tuberculosis: No Hx HIV: No Additional medical history: gout - Surgical History Past Surgical History?: Yes Hx Coronary Stent: No Hx Pacemaker: No Hx Internal Defibrillator: No Hx Appendectomy: Yes Additional Surgical History: fistula left forearm - Family History Family history: other (Noncontributory to this presentation) - Social History Smoking Status: Former Smoker Substance Use Type: None - Medications Home Medications: Home Medications Medication Instructions Recorded Confirmed Last Taken Type Ipratropium/Albuterol Sulfate 1 ampul IH Q6HRT #30 ampul.neb 04/22/19 11/03/20 1 Day Ago Rx [DUONEB *Not for PRN Use*] ~08/29/20 Acyclovir [Zovirax Tab] 800 mg PO Q12H 08/30/20 11/03/20 1 Day Ago History ~08/29/20 Sucroferric Oxyhydroxide(Nf) 1 mg PO AC 08/30/20 11/03/20 1 Day Ago History [Velphoro (Nf)] ~08/29/20 Vit B Comp No.3/Folic/C/Biotin 1 each PO DAILY 08/30/20 11/03/20 1 Day Ago History [Nephro-[place] Rx Tablet] ~08/29/20 carvediloL [Coreg] 6.25 mg PO BID 08/30/20 11/03/20 08/30/20 History Budesonide/Formoterol Fumarate 10.2 gm IH BID #1 hfa.aer.ad 09/01/20 11/03/20 Unknown Rx [Symbicort 160-4.5 Mcg Inhaler] predniSONE 10 mg PO QDAY 3 Days #3 tab 09/01/20 11/03/20 Unknown Rx predniSONE [Deltasone] 20 mg PO DAILY 3 Days #3 tablet 09/01/20 11/03/20 Unknown Rx predniSONE [Deltasone] 40 mg PO QDAY 3 Days #6 tab 09/01/20 11/03/20 Unknown Rx Prednisone [predniSONE 10 mg 10 mg PO .TAPER #1 tab.ds.pk 11/05/20 Unknown Rx (6-Day Pack, 21 Tabs)] oxyCODONE /ACETAMINOPHEN [Percocet 1 tab PO Q4HR #10 tab 11/05/20 Unknown Rx 5/325] oxyCODONE /ACETAMINOPHEN [Percocet 1 tab PO Q6HR PRN #15 tablet 04/27/21 Unknown Rx 5/325] ED Physical Exam - General Limitations: No Limitations General appearance: alert, in no apparent distress - Head Head exam: Present: atraumatic, normocephalic - Eye Eye exam: Present: normal appearance - ENT ENT exam: Present: mucous membranes moist - Neck Neck exam: Present: normal inspection - Respiratory Respiratory exam: Present: normal lung sounds bilaterally. Absent: respiratory distress, wheezes, rales, rhonchi - Cardiovascular Cardiovascular Exam: Present: regular rate, normal rhythm, normal heart sounds. Absent: systolic murmur, diastolic murmur, rubs, gallop - GI/Abdominal GI/Abdominal exam: Present: soft, normal bowel sounds. Absent: distended, tenderness, guarding, rebound - Rectal Rectal exam: Present: deferred - Extremities Exam Extremities exam: Present: other (Left forearm AV fistula present) - Expanded Lower Extremity Exam Right Upper Leg exam: Present: normal inspection, full ROM Knee exam: Present: full ROM, swelling. Absent: tenderness, abrasion, laceration Lower Leg exam: Present: normal inspection, full ROM Left Hip exam: Present: normal inspection, full ROM Upper Leg exam: Present: normal inspection, full ROM Knee exam: Present: full ROM, swelling. Absent: tenderness, abrasion - Back Exam Back exam: Present: normal inspection - Neurological Exam Neurological exam: Present: alert, oriented X3 - Psychiatric Psychiatric exam: Present: normal affect, normal mood - Skin Skin exam: Present: warm, dry, intact, normal color. Absent: rash - Other Other exam information: Bilateral knee pain with obvious chronic deformity no erythema no warmth full range of motion ED Course Vital Signs 04/27/21 13:16 Temperature 98.4 F Pulse Rate 86 Respiratory 17 Rate Blood Pressure 116/78 [Right] O2 Sat by Pulse 97 Oximetry ED Lower Extremity MDM - Medical Decision Making Bilateral knee osteoarthritis without evidence of septic or gouty arthropathy. No history of trauma Prescribed Percocet, referred to orthopedic surgeon Critical care attestation.: If time is entered above; I have spent that time in minutes in the direct care of this critically ill patient, excluding procedure time. ED Disposition Clinical Impression: Bilateral primary osteoarthritis of knee Disposition: 01 HOME / SELF CARE / HOMELESS Is pt being admited?: No Does the pt Need Aspirin: No Condition: Stable Instructions: Osteoarthritis Prescriptions: oxyCODONE /ACETAMINOPHEN [Percocet 5/325] 1 tab PO Q6HR PRN #15 tablet PRN Reason: Pain Referrals: KIM GARCIA MD [Staff Physician] - 3-5 Days
[2021-04-27 19:32] VITALS: BP 100/68
== END 2021-04-27 19:31 | disposition home or self-care (01) ==
LOC: ED 13:14
DX: M17.0 Bilateral primary osteoarthritis of knee (principal); I11.0 Hypertensive heart disease with heart failure; I50.9 Heart failure, unspecified; E11.9 Type 2 diabetes mellitus without complications; J44.9 Chronic obstructive pulmonary disease, unspecified; Z98.890 Other specified postprocedural states; Z87.891 Personal history of nicotine dependence
CPT/HCPCS: 99283